=== PATIENT | female | born 1955 | race Caucasian/White ===

== ENCOUNTER 2018-01-01 09:47 | Outpatient (REF) | payer MEDICAID, SELFPAY ==
[2018-01-01 12:53] LABS: HGB 14.4 g/dL (12.0-15.5); Mean Corp. HGB Concentration 34.3 g/dL (32.0-36.0); Mean Corpuscular Volume 96.1 fL (80-95); Mean Platelet Volume 10.4 fL (8.0-11.0); Platelet Count 285 x1000/uL (130-400); RBC 4.37 m/cumm (4.00-5.20); RBC Distribution Width 12.2 % (11.7-14.6); White Blood Cell Count 8.18 k/cumm (4.4-10.8)
[2018-01-01 13:01] LABS: ALT 17 U/L (12-78); AST 16 U/L (15-37); Alkaline Phosphatase 127 U/L (46-116); Anion Gap 6.9 mmol/L (3-11); BUN 24 mg/dL (7-18); Bilirubin, Total 0.5 mg/dL (0.2-1.0); CO2 28.1 mmol/L (21.0-32.0); CREATININE 0.94 mg/dL (0.55-1.02); Calcium 8.8 mg/dL (8.5-10.1); Chloride 106 mmol/L (98-107); Cholesterol 207 mg/dL (50-200); Glucose 86 mg/dL (70-100); HDL Cholesterol 60 mg/dL (40-60); LDL CHOLESTEROL 136 mg/dL (<100); Potassium 4.5 mmol/L (3.5-5.1); Sodium 141 mmol/L (136-145); Triglyceride 87 mg/dL (30-150)
[2018-01-03 06:45] LABS: Vitamin D 25 Total 48.2 ng/ml (30-100)
== END 2018-01-01 10:07 ==
LOC: NCHCN 09:47
PROVIDERS: PCP Nurse Practitioner Family; Visit Provider Nurse Practitioner Family
DX: Z13.0 Encounter for screening for diseases of the blood and blood-forming organs and certain disorders involving the immune mechanism (principal); Z13.228 Encounter for screening for other metabolic disorders; Z13.220 Encounter for screening for lipoid disorders; E55.9 Vitamin D deficiency, unspecified
CPT/HCPCS: 80053; 80061; 82306; 83721; 85027

== ENCOUNTER 2018-01-07 10:50 | Outpatient (REF) | payer MEDICAID, SELFPAY ==
[2018-01-07 13:50] LABS: Vitamin D 25 Total 50.1 ng/ml (30-100)
== END 2018-01-07 11:10 ==
LOC: NCHCN 10:50
PROVIDERS: PCP Nurse Practitioner Family; Visit Provider Nurse Practitioner Family
DX: E55.9 Vitamin D deficiency, unspecified (principal)
CPT/HCPCS: 82306

== ENCOUNTER 2018-02-04 10:22 | Outpatient (CLI) | payer MEDICAID, SELFPAY ==
--- NOTE | 2018-02-04 10:10 | DI.COMBO_ITS ---
SYMPTOM/DIAGNOSIS: BILATERAL KNEE PAIN RIGHT KNEE: Three views. No priors The joint spaces are well maintained. The bones are intact and normally mineralized. There is an enthesophyte seen at the superior aspect of the patella. The soft tissues are unremarkable. IMPRESSION: Small enthesophyte at the superior aspect of the patella. No other bone or joint abnormality. LEFT KNEE: Three Views. No priors. There is a small enthesophyte at the superior aspect of the patella. The joint spaces are well maintained. The articular surfaces are smooth. The bones are intact and normally mineralized. The soft tissues are unremarkable. IMPRESSION: Small enthesophyte at the superior aspect of the patella. Otherwise , negative examination.
--- NOTE | 2018-02-04 10:55 | DI.RAD_ITS ---
SYMPTOM/DIAGNOSIS: BACK PAIN THORACOLUMBAR JUNCTION: Frontal and lateral views centered at the thoracolumbar junction were performed. Mild to moderate degenerative changes are seen in the visualized thoracic and lumbar spine. No acute fractures or subluxations are seen. Surgical clips are seen in the right upper quadrant of the abdomen suggesting prior cholecystectomy. The bones appear normally mineralized. IMPRESSION: Mild to moderate degenerative changes seen in the visualized portions of the thoracic and lumbar spine.
== END 2018-02-04 10:42 ==
PROVIDERS: PCP Nurse Practitioner Family; Visit Provider Physician Assistant
DX: M25.561 Pain in right knee (principal); M25.562 Pain in left knee; M76.891 Other specified enthesopathies of right lower limb, excluding foot; M76.892 Other specified enthesopathies of left lower limb, excluding foot; M54.5 Low back pain; M54.6 Pain in thoracic spine; M47.815 Spondylosis without myelopathy or radiculopathy, thoracolumbar region
CPT/HCPCS: 73562; 72080

== ENCOUNTER 2018-03-01 06:38 | Day surgery (SDC) | payer MEDICAID, SELFPAY ==
--- NOTE | 2018-02-28 07:34 | W.PIPPEYE ---
History of Present Illness Chief Complaint: Progressive decreased vision, right eye Narrative: Patient is a 62-year old female who presented with complaints of progressive decreased vision in both eyes at both distance and near. She also has significant difficulty with glare. She has a history of CVA with right-sided visual field defects. On examination she was noted to have moderate nuclear cataracts with posterior subcapsular cataract of the right eye with visual acuity of 20/400. The option of cataract surgery was offered to the patient and she wished to proceed, understanding that postoperative visual acuity may be limited by the presence of her pre-existing visual field deficit. NOTE: The Chief Complaint, HPI, Past Medical History, Past Surgical History, Family History, Social History, Medications, and complete Ophthalmic Exam with detailed Assessment and Plan have already been documented in the patient's outpatient ophthalmic record and are not covered again in detail here. 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) (Acute) Nuclear sclerotic cataract of right eye (Acute) Posterior subcapsular age-related cataract, right eye (Acute) Social History Smoking/Tobacco Use Status: Current-Occasional Meds Home Medications Medication Instructions Recorded Confirmed Type carbidopa-levodopa [Sinemet] 1 tab PO HS 02/04/14 02/25/18 History cholecalciferol (vitamin D3) 1 tab PO DAILY 02/04/14 02/25/18 History [Vitamin D3] pantoprazole 40 mg PO DAILY 04/28/16 02/25/18 History celecoxib 100 mg capsule 100 mg PO BID #60 cap 02/04/18 02/26/18 Rx Allergies Allergy/AdvReac Type Severity Reaction Status Date / Time No Known Allergies Allergy Unverified 02/04/18 09:45 Exam OCULAR EXAM:: Visual acuity at distance: 20/400 Pupils: Pupils equal, round, and reactive without afferent pupillary defect IOP: 15 OU Extraocular Motility: Normal Pertinent Slit Lamp Findings: Significant for pupils dilating to 6 mm OU. 1-2+ nuclear cataract OU. 1+ posterior subcapsular cataract OD. Dilated Funduscopic Examination: Disc cupping is 0.35 OU with good color. The optic nerves have good perfusion and normal color. The retinal vasculature is normal without significant tortuosity or abnormality. The maculas are normal in appearance with normal contour and foveal reflex appropriate for age. The peripheral retina and vitreous are normal. BRIGHTNESS ACUITY TESTING (BAT):: Off right eye 20/400 Low: 20/400 Medium: 20/200 High: 20/200 Assessment and Plan (1) Posterior subcapsular age-related cataract, right eye: Current visit: No Status: Acute Assessment: Visually significant cataract, right eye. Plan: Cataract extraction with intraocular lens implantation, right eye (2) Nuclear sclerotic cataract of right eye: Current visit: No Status: Acute Assessment: Visually significant cataract, right eye. 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 Patient reports right side of visual field affected. Had visual field exam many years ago in [place]. We have no access to those reports. Plan: Consideration was given to performing visual field prior to surgery. However, quality of visual field will be impacted by her cataract in the right eye and it will likely be unreliable. Recommend full threshold screening visual field following cataract surgery Note: NOTE:: The details of the planned surgery, including the risks, indications,limitations,expectations,outcome and possible complications were explained to the patient. The patient understands the complications including, but not limited to: infection, hemorrhage, posterior dislocation of the lens or nuclear fragments which may require the intervention of a vitreoretinal surgeon, possible loss of the eye, or from anesthetic complications. The patient has been made aware of the option of not having surgery, that vision following surgery may not be equal to that prior to surgery, and that the planned surgery may not achieve the intended results. Following this discussion, which the patient appeared to understand, the patient wishes to proceed with cataract surgery with lens implantation of the affected eye to improve and maximize vision.
[2018-03-01] MEDS: Tetracaine 0.5% 4 ML BTL OD ×4 (06:59→07:36)
[2018-03-01] MEDS: Tropicam./Phenyleph. (1/2.5%) 5 ML BTL OD ×3 (07:00→07:17)
[2018-03-01 07:04] VITALS: BP 117/70; PULSE 63; RESP 16; TEMP 36.6; O2SAT 99
--- NOTE | 2018-03-01 07:30 | W.PM.DSUDISC ---
Discharge Plan Discharge Details Reason For Visit: CATARACT OD Attending Provider: Petar Barahona Primary Care Provider: Safia Molina Home Meds and New Rx's Prescriptions: No Action celecoxib [Celebrex] 100 mg capsule 100 mg PO BID Qty: 60 RF: 2 carbidopa-levodopa [Sinemet] 1 EACH tablet 1 tab PO HS RF: 0 cholecalciferol (vitamin D3) [Vitamin D3] 1,000 UNIT capsule 1 tab PO DAILY RF: 0 pantoprazole 40 MG tablet,delayed release (DR/EC) 40 mg PO DAILY RF: 0 Discharge Instructions Stand Alone Forms: Post-op Topical Anusha Jackson (DSU) DS: Diagnosis Discharge Diagnosis (1) Posterior subcapsular age-related cataract, right eye: Status: Resolved (2) Nuclear sclerotic cataract of right eye: Status: Resolved (3) 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
[2018-03-01] MEDS: Lidocaine 2% Jelly 6 ML SYR (07:36)
[2018-03-01] MEDS: Lidocaine 1% Pres-Free 5 ML VIAL (07:41)
[2018-03-01] MEDS: Balanced Salt Soln.-PLUS 500 ML BAG (07:41)
[2018-03-01] MEDS: Povidone-Iodine Ophth 30 ML BTL (07:48)
[2018-03-01 08:30] VITALS: BP 110/72; PULSE 57; RESP 14; TEMP 37; O2SAT 96
--- NOTE | 2018-03-01 09:39 | W.PM.OP ---
Date of service: 03/01/18 Time of Service: 09:39 Operative Note DATE OF PROCEDURE: 03/01/18 PRE-OP DIAGNOSIS: Cataract, right eye POST-OP DIAGNOSIS: same SURGEON: Petar Barahona ANESTHESIA: MAC and local (sub-tenon's anesthetic infiltration) PATHOLOGY: none sent COMPLICATIONS: None Patient was transported to: same day Patient's condition: stable Implants: [employer] A[employer] Vision / [employer] Tecnis ZCB00 Indications: Progressive decreased vision due to cataract, right eye Procedure Description: CATARACT SURGERY OPERATIVE REPORT PREOPERATIVE DIAGNOSIS: Nuclear/posterior subcapsular cataract, right eye POSTOPERATIVE DIAGNOSIS: Same OPERATION: Cataract extraction using phacoemulsification with posterior chamber intraocular lens implant, right eye. IOL: IOL Spine Surgeon/Model: [employer] Vision / OMKAR Tecnis ZCB00 IOL Power: + 22.0 diopters IOL Serial Number: [id number] Optic Diameter: 6.0mm Haptic/Overall Diameter: 13.0mm PHACO INFO: [employer] Vision System with OZil and Active Fluidics Cumulative Dispersed Energy (CDE): 7.94 seconds SURGEON: Petar Barahona MD, JOSE ANGEL ANESTHESIA: Monitored Anesthesia Care (MAC), with local sub-tenon's anesthetic infiltration COMPLICATIONS: None SPECIMENS: None INDICATIONS FOR PROCEDURE: Patient is a 62-year-old female with history of progressive decreased vision in her right eye. She was noted to have a significant nuclear and posterior subcapsular cataract with visual acuity of 20/400. The option of cataract surgery was offered to the patient and she felt she was symptomatic enough that she wished to proceed. PROCEDURE: The correct surgical eye was identified and marked as the right eye and the pupil was dilated in the preoperative area using mydriatics and cycloplegics. The dilated pupil size was 7.0 mm. Oral sedation was administered in the form of an Imprimis MKO Melt (midazolam 3mg/ketamine 25mg/ondansetron 2mg). The patient was brought to the operating room where cardiopulmonary monitoring was instituted and surgical time-out was performed, confirming the correct operative eye and IOL power. Topical anesthesia was administered and ophthalmic povidone-iodine 5% was instilled into the conjunctival fornices. Lidocaine gel was applied to the cornea and the ruby-ocular area was prepped with Betadine 10% solution and draped in the usual sterile fashion for intraocular surgery. Steri-strips were used to cover the lashes and lid margins and an adhesive eye drape was placed. Care was taken to isolate the lashes and lid margins under the Steri-strips and adhesive eye drape. A lid speculum was placed between the lids of the operative eye and the Jamar-Heath operating microscope was maneuvered into position. Sis scissors were then used to make a conjunctival buttonhole approximately 6mm posterior to the limbus in the inferonasal quadrant. Blunt dissection was carried out to expose bare sclera, and a blunt-tipped sub-tenon?s anesthesia cannula was introduced and passed posteriorly along the globe where non-preserved plain lidocaine was injected into posterior sub-Tenon?s space. A sideport knife was used to make a paracentesis port at the 7:00 postion and the anterior chamber was filled with Healon GV. A 2.4mm keratome knife was used to create a half-thickness groove at the limbus and then to construct a three-plane near-clear corneal tunnel extending 2.0mm into clear cornea at the 10:00 position. A flap was raised on the anterior capsule and capsulorhexis forceps were used to complete a continuous curvilinear capsulorhexis of 5.0 mm. Balanced salt solution was then used to perform cortical cleaving hydrodissection and nuclear hydrodelineation until the lens could be freely rotated within the capsular bag. The lens nucleus was then disassembled and removed within the capsular bag and iris plane using phacoemulsification. Residual cortical material was removed using the 45-degree angled silicone I/A tip with 0.3mm port. The posterior capsule was carefully polished to remove as much residual lens epithelial cells as safely possible. The capsular bag was then inflated and the anterior chamber deepened with viscoelastic. The lens implant described above was inserted into the capsular bag using the OMKAR [place] Injector. A Kuglen hook was used to dial the IOL into position. Residual viscoelastic was then removed first from posterior to the IOL, then from the anterior chamber using the I/A handpiece. The lens implant was noted to center nicely within the capsular bag. The incisions were stromally hydrated, and the anterior chamber was reformed using BSS. Then 0.4cc of moxifloxacin 1.5mg/ml were injected into the capsular bag and anterior chamber. The incisions were checked with a Weck spear and found to be secure. Several drops of ophthalmic povidone-iodine 5% were then applied to the eye followed by two drops of Imprimis combination moxifloxacin/dexamethasone solution. The drapes were removed and a clear plastic protective eye shield was placed over the eye. The patient was then returned to Same Day Surgery in stable condition.
== END 2018-03-01 08:50 | disposition home or self-care (01) ==
PROVIDERS: PCP Nurse Practitioner Family; Visit Provider Ophthalmology
PROC: (CPT 66984; principal; 2018-03-01 07:30)
DX: H25.811 Combined forms of age-related cataract, right eye (principal); J44.9 Chronic obstructive pulmonary disease, unspecified; K21.9 Gastro-esophageal reflux disease without esophagitis; F17.210 Nicotine dependence, cigarettes, uncomplicated
CPT/HCPCS: 66984; V2632

== ENCOUNTER 2018-03-15 07:53 | Day surgery (SDC) | payer MEDICAID, SELFPAY ==
--- NOTE | 2018-03-14 12:47 | W.PIPPEYE ---
History of Present Illness Chief Complaint: Progressive decreased vision, left eye Narrative: The patient is a 62-year old female with history of progressive decreased vision in both eyes at both distance and near. On examination she was noted to have moderate bilateral nuclear cataracts with posterior subcapsular cataract of the right eye as well. She was significantly symptomatic that she desired cataract surgery which was performed OD on 03/01/2018. She has regained uncorrected vision of 20/20 in the right eye. She now presents for cataract surgery of the left eye NOTE: The Chief Complaint, HPI, Past Medical History, Past Surgical History, Family History, Social History, Medications, and complete Ophthalmic Exam with detailed Assessment and Plan have already been documented in the patient's outpatient ophthalmic record and are not covered again in detail here. 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) (Chronic) Nuclear sclerotic cataract of right eye (Resolved) Posterior subcapsular age-related cataract, right eye (Resolved) Status post cataract extraction and insertion of intraocular lens of right eye (Chronic 03/01/18) Social History Smoking/Tobacco Use Status: Current-Occasional Meds Home Medications Medication Instructions Recorded Confirmed Type carbidopa-levodopa [Sinemet] 1 tab PO HS 02/04/14 03/01/18 History cholecalciferol (vitamin D3) 1 tab PO DAILY 02/04/14 02/25/18 History [Vitamin D3] pantoprazole 40 mg PO DAILY 04/28/16 03/01/18 History celecoxib 100 mg capsule 100 mg PO BID #60 cap 02/04/18 03/01/18 Rx Allergies Allergy/AdvReac Type Severity Reaction Status Date / Time No Known Allergies Allergy Unverified 03/01/18 06:52 Exam OCULAR EXAM:: Most recent ocular examination is significant for uncorrected visual acuity of 20/20 in the right eye, 20/40 in the left eye. Intraocular pressure is 15 OD, 15 OS. Pupils equal, round, and reactive without afferent pupillary defect, extraocular motility is normal. Slit-lamp examination is significant for pupils dilating to 6 mm OU. A 1-2+ nuclear cataract is present OS. A well-positioned PCIOL is present OD with clear posterior capsule. Funduscopic examination is significant for disc cupping of 0.35 OU with normal vessels, macula, peripheral retina and vitreous. BRIGHTNESS ACUITY TESTING (BAT):: Brightness acuity testing of the left eye, off is 20/40. Low is 20/25, medium is 20/25, high is 20/30. Assessment and Plan (1) Nuclear sclerotic cataract of left eye: Current visit: No Status: Acute Assessment: Visually significant cataract, left eye. Plan: Cataract extraction with intraocular lens implantation, left eye Note: NOTE:: The details of the planned surgery, including the risks, indications,limitations,expectations,outcome and possible complications were explained to the patient. The patient understands the complications including, but not limited to: infection, hemorrhage, posterior dislocation of the lens or nuclear fragments which may require the intervention of a vitreoretinal surgeon, possible loss of the eye, or from anesthetic complications. The patient has been made aware of the option of not having surgery, that vision following surgery may not be equal to that prior to surgery, and that the planned surgery may not achieve the intended results. Following this discussion, which the patient appeared to understand, the patient wishes to proceed with cataract surgery with lens implantation of the affected eye to improve and maximize vision.
[2018-03-15 08:07] VITALS: BP 129/72; PULSE 78; RESP 18; TEMP 37.1; O2SAT 96
[2018-03-15] MEDS: Tetracaine 0.5% 4 ML BTL OS ×4 (08:16→09:06)
[2018-03-15] MEDS: Tropicam./Phenyleph. (1/2.5%) 5 ML BTL OS ×3 (08:16→08:21)
[2018-03-15] MEDS: Povidone-Iodine Ophth 30 ML BTL (09:06)
[2018-03-15] MEDS: Lidocaine 2% Jelly 6 ML SYR (09:06)
[2018-03-15] MEDS: Lidocaine 1% Pres-Free 5 ML VIAL (09:10)
[2018-03-15] MEDS: Balanced Salt Soln.-PLUS 500 ML BAG (09:12)
--- NOTE | 2018-03-15 09:32 | W.PM.DSUDISC ---
Discharge Plan Discharge Details Reason For Visit: CATARACT OS Attending Provider: Petar Barahona Primary Care Provider: Safia Molina Home Meds and New Rx's Prescriptions: No Action celecoxib [Celebrex] 100 mg capsule 100 mg PO BID Qty: 60 RF: 2 carbidopa-levodopa [Sinemet] 1 EACH tablet 1 tab PO HS RF: 0 cholecalciferol (vitamin D3) [Vitamin D3] 1,000 UNIT capsule 1 tab PO DAILY RF: 0 pantoprazole 40 MG tablet,delayed release (DR/EC) 40 mg PO DAILY RF: 0 Discharge Instructions Stand Alone Forms: Post-op Topical Cataract, Anusha Hale (DSU) DS: Diagnosis Discharge Diagnosis (1) Status post cataract extraction and insertion of intraocular lens of left eye: Status: Chronic
--- NOTE | 2018-03-15 09:33 | W.PM.OP ---
Date of service: 03/15/18 Time of Service: 09:33 Operative Note DATE OF PROCEDURE: 03/15/18 PRE-OP DIAGNOSIS: Cataract, left eye POST-OP DIAGNOSIS: same PROCEDURE: Cataract extraction using phacoemulsification with intraocular lens implant, left eye SURGEON: Petar Barahona ANESTHESIA: MAC and local (sub-tenon's anesthetic infiltration) PATHOLOGY: none sent COMPLICATIONS: None Patient was transported to: same day Patient's condition: stable Implants: [employer] Vision / [employer] Tecnis ZCB00 Indications: Progressive decreased vision due to cataract, left eye Procedure Description: CATARACT SURGERY OPERATIVE REPORT PREOPERATIVE DIAGNOSIS: Nuclear cataract, left eye POSTOPERATIVE DIAGNOSIS: Same OPERATION: Cataract extraction using phacoemulsification with posterior chamber intraocular lens implant, left eye. IOL: IOL Research Hydraulic Engineer/Model: J&J Vision / OMKAR Tecnis ZCB00 IOL Power: + 21.50 diopters IOL Serial Number: [id number] Optic Diameter: 6.0mm Haptic/Overall Diameter: 13.0mm PHACO INFO: [employer] Vision System with OZil and Active Fluidics Cumulative Dispersed Energy (CDE): 7.09 seconds SURGEON: Petar Barahona MD, JOSE ANGEL ANESTHESIA: Monitored Anesthesia Care (MAC), with local sub-tenon's anesthetic infiltration COMPLICATIONS: None SPECIMENS: None INDICATIONS FOR PROCEDURE: The patient is a 62-year old lady with history of bilateral nuclear cataracts that have become increasingly symptomatic. She desired cataract surgery, which was performed OD on 03/01/2018. She is doing well postoperatively in her right eye with uncorrected vision of 20/20. She now presents for cataract surgery of the left eye. PROCEDURE: The correct surgical eye was identified and marked as the left eye and the pupil was dilated in the preoperative area using mydriatics and cycloplegics. The dilated pupil size was 6.5 mm. Oral sedation was administered in the form of an Imprimis MKO Melt (midazolam 3mg/ketamine 25mg/ondansetron 2mg). The patient was brought to the operating room where cardiopulmonary monitoring was instituted and surgical time-out was performed, confirming the correct operative eye and IOL power. Topical anesthesia was administered and ophthalmic povidone-iodine 5% was instilled into the conjunctival fornices. Lidocaine gel was applied to the cornea and the ruby-ocular area was prepped with Betadine 10% solution and draped in the usual sterile fashion for intraocular surgery, including an aperture drape. A Tegaderm transparent film dressing was cut in half and used to cover the lashes and lid margins. Care was taken to sequester the lashes and lid margins under the Tegaderm dressing. A lid speculum was placed between the lids of the operative eye and the Jamar-Heath operating microscope was maneuvered into position. Sis scissors were then used to make a conjunctival buttonhole approximately 6mm posterior to the limbus in the inferonasal quadrant. Blunt dissection was carried out to expose bare sclera, and a blunt-tipped sub-tenon?s anesthesia cannula was introduced and passed posteriorly along the globe where non-preserved plain lidocaine was injected into posterior sub-Tenon?s space. A sideport knife was used to make a paracentesis port superior/superiortemporal, and the anterior chamber was filled with Healon GV. A 2.4mm keratome knife was used to create a half-thickness groove at the limbus and then to construct a three-plane near-clear corneal tunnel extending 2.0mm into clear cornea in the temporal position. . A flap was raised on the anterior capsule and capsulorhexis forceps were used to complete a continuous curvilinear capsulorhexis of 4.5 mm, slightly decentered inferiorly. Balanced salt solution was then used to perform cortical cleaving hydrodissection and nuclear hydrodelineation until the lens could be freely rotated within the capsular bag. The lens nucleus was then disassembled and removed within the capsular bag and iris plane using phacoemulsification. Residual cortical material was removed using the 45-degree angled silicone I/A tip with 0.3mm port. The posterior capsule was carefully polished to remove as much residual lens epithelial cells as safely possible. The capsular bag was then inflated and the anterior chamber deepened with viscoelastic. The lens implant described above was inserted into the capsular bag using the OMKAR [place] Injector. A Kuglen hook was used to dial the IOL into position. Residual viscoelastic was then removed first from posterior to the IOL, then from the anterior chamber using the I/A handpiece. The lens implant was noted to center nicely within the capsular bag. The incisions were stromally hydrated, and the anterior chamber was reformed using BSS. Then 0.4cc of moxifloxacin 1.5mg/ml were injected into the capsular bag and anterior chamber. The incisions were checked with a Weck spear and found to be secure. Several drops of ophthalmic povidone-iodine 5% were then applied to the eye followed by two drops of Imprimis combination moxifloxacin/dexamethasone solution. The drapes were removed and a clear plastic protective eye shield was placed over the eye. The patient was then returned to Same Day Surgery in stable condition.
[2018-03-15 09:50] VITALS: BP 108/73; PULSE 68; RESP 16; TEMP 36.6; O2SAT 97
== END 2018-03-15 10:00 | disposition home or self-care (01) ==
LOC: SUR 07:54
PROVIDERS: PCP Nurse Practitioner Family; Visit Provider Ophthalmology
PROC: (CPT 66984; principal; 2018-03-15 09:00)
DX: H25.12 Age-related nuclear cataract, left eye (principal); Z98.41 Cataract extraction status, right eye; Z96.1 Presence of intraocular lens; J44.9 Chronic obstructive pulmonary disease, unspecified; K21.9 Gastro-esophageal reflux disease without esophagitis; F17.210 Nicotine dependence, cigarettes, uncomplicated
CPT/HCPCS: 66984; V2632

== ENCOUNTER 2018-10-07 14:12 | Outpatient (REF) | payer MEDICAID, SELFPAY ==
[2018-10-07 20:12] LABS: Abs Immature Grans 0.01 k/cumm (0.0-0.09); Absolute Basophil Count 0.02 k/cumm (0.0-0.2); Absolute Eosinophil Count 0.08 k/cumm (0.0-0.7); Absolute Lymphocyte Count 2.25 k/cumm (1.2-3.4); Absolute Monocyte Count 0.54 k/cumm (0.11-0.7); Absolute Neutrophil Count 4.06 k/cumm (1.2-6.7); Basophils % 0.3; Eosinophils % 1.1; HCT 39.6 % (36.0-46.0); HGB 13.4 g/dL (12.0-15.5); Immature Grans % 0.1; Lymphocytes % 32.3; Mean Corp. HGB Concentration 33.8 g/dL (32.0-36.0); Mean Corpuscular Hemoglobin 32.6 pg (27.0-33.0); Mean Corpuscular Volume 96.4 fL (80-95); Mean Platelet Volume 10.8 fL (8.0-11.0); Monocytes % 7.8; Neutrophils % 58.4; Platelet Count 309 x1000/uL (130-400); RBC 4.11 m/cumm (4.00-5.20); RBC Distribution Width 12.1 % (11.7-14.6); White Blood Cell Count 6.96 k/cumm (4.4-10.8)
[2018-10-07 20:13] LABS: Bilirubin Negative (Negative); Blood Small (Negative); Clarity Clear (Clear); Glucose Negative (Negative); Ketones Negative (Negative); Leukocyte Esterase Negative (Negative); Nitrite Negative (Negative); Specific Gravity 1.025 (1.005-1.025); Urobilinogen 0.2 EU/dL (Up TO 0.2); pH 5.5 (5-8)
[2018-10-07 20:22] LABS: ALT 20 U/L (12-78); AST 16 U/L (15-37); Albumin 4.1 g/dL (3.4-5.0); Alkaline Phosphatase 113 U/L (46-116); Anion Gap 9.9 mmol/L (3-11); BUN 17 mg/dL (7-18); Bilirubin, Total 0.5 mg/dL (0.2-1.0); CO2 27.1 mmol/L (21.0-32.0); CREATININE 0.92 mg/dL (0.55-1.02); Calcium 9.1 mg/dL (8.5-10.1); Chloride 105 mmol/L (98-107); Glucose 77 mg/dL (70-100); Sodium 142 mmol/L (136-145); TSH (W/Ref FT4) 1.58 uIU/mL (0.358-3.74); Total Protein 6.9 g/dL (6.4-8.2)
[2018-10-07 21:41] LABS: Bacteria Negative HPF (Negative); C & S Indicated? No; Casts Negative LPF (Negative); Crystals Negative HPF (Negative); Epithelial Cells Negative HPF (Negative); Mucus Negative (Negative); Other Cells Negative (Negative); RBC Negative (0-2); WBC Negative HPF (0-5)
== END 2018-10-07 14:32 ==
LOC: NCHCN 14:12
PROVIDERS: PCP Nurse Practitioner Family; Visit Provider Nurse Practitioner Family
DX: F41.8 Other specified anxiety disorders (principal); R63.4 Abnormal weight loss; R51 Headache
CPT/HCPCS: 80053; 81003; 81015; 84443; 85025

== ENCOUNTER 2018-10-17 00:30 | Outpatient (CLI) | payer MEDICAID, SELFPAY ==
--- NOTE | 2018-10-17 11:50 | DI.MAMMO_ITS ---
SYMPTOM/DIAGNOSIS: SCREENING, Z12.39 MAMMOGRAMS: Mammograms were interpreted according to the usual protocol including computer analysis with CAD system, tomosynthesis and C view imaging. The breast tissue is heterogeneous radiodense which lowers the sensitivity of the study. There is a question regarding interval development of a small area of subareolar nodularity in the left breast. There are no suspicious calcifications. SUMMARY: Question interval development of a left breast nodule. Further assessment with a craniocaudad compression spot film and ultrasound is recommended. Category 0. Breast density, Category C. MQSA ASSESSMENT OF FINDINGS: Incomplete: Needs additional imaging evaluation. Category 0. Patient will receive a letter notifying them of these results. Bi-RADS category C. The breasts are heterogeneously dense, which may obscure small masses.
== END 2018-10-17 00:50 ==
PROVIDERS: PCP Nurse Practitioner Family; Visit Provider Nurse Practitioner Family
DX: Z12.31 Encounter for screening mammogram for malignant neoplasm of breast (principal); R92.8 Other abnormal and inconclusive findings on diagnostic imaging of breast
CPT/HCPCS: 77063; 77067

== ENCOUNTER 2018-10-22 00:36 | Outpatient (CLI) | payer MEDICAID, SELFPAY ==
--- NOTE | 2018-10-22 10:00 | DI.COMBO_ITS ---
SYMPTOM/DIAGNOSIS: F/U ABNL MAMMO SUBAREOLAR NODULARITY ADDITIONAL VIEWS LEFT BREAST AND LEFT BREAST ULTRASOUND: Additional images are interpreted according to the usual protocol including tomosynthesis and 2D imaging. Additional views of the left breast again show an area of architectural detorsion consistent with the patient's prior breast biopsy. No persistent mass or suspicious microcalcifications are seen. The skin and axilla are unremarkable. Breast density category C. A left breast ultrasound was performed in the area of concern. An avascular area of architectural detorsion is seen in the subareolar region of the left breast consistent with the patient's area of biopsy. No suspicious cystic or solid masses are seen sonographically. IMPRESSION: No definite evidence for malignancy. A 6-month follow up left mammogram is requested for re-evaluation. Category 3. Breast density C. The findings were discussed with the patient on the date of the examination. MQSA ASSESSMENT OF FINDINGS: Probably benign. Six month follow-up recommended. Category 3. Patient will receive a letter notifying them of these results. Bi-RADS category C. The breasts are heterogeneously dense, which may obscure small masses.
== END 2018-10-22 00:56 ==
PROVIDERS: PCP Nurse Practitioner Family; Visit Provider Nurse Practitioner Family
DX: Z12.31 Encounter for screening mammogram for malignant neoplasm of breast (principal); R92.8 Other abnormal and inconclusive findings on diagnostic imaging of breast; N64.59 Other signs and symptoms in breast
CPT/HCPCS: 76642; 77061; 77065; G0279

== ENCOUNTER 2018-10-23 00:40 | Outpatient (CLI) | payer MEDICAID, SELFPAY ==
--- NOTE | 2018-10-23 13:15 | DI.CT_ITS ---
SYMPTOM/DIAGNOSIS: COUGH, R05, UNEXPLAINED WEIGHT LOSS, R63.4 CT CHEST: CT scan of the chest was performed following the uneventful administration of intravenous contrast material. There are no priors for comparison. There are a few tiny hypodense lesions seen within the thyroid gland. Non- emergent thyroid ultrasound may be obtained for further evaluation. The thoracic aorta is of normal caliber and intact. Mild atherosclerosis is present. Heart size is within normal limits. No significant pericardial effusion is seen. Coronary artery calcifications are present. Mildly enlarged lymph nodes are seen in the mediastinum. The largest lymph node has a short axis diameter of 0.7 cm. No significant thoracic adenopathy is seen. No pleural effusion or pneumothorax is identified. Upper abdominal images were obtained. The patient is status post cholecystectomy. There is a cyst seen in the mid-pole of the left kidney. Mild central lobular lucencies are seen in the lungs, predominantly in the apices suggestive of pulmonary emphysema. There is scarring in the lung apices, left greater than right. There is a 0.4 cm triangular noncalcified density associated with the right minor fissure most suggestive of an intrapulmonary lymph node. No suspicious pulmonary nodules are seen. No infiltrates are seen. The tracheobronchial tree is unremarkable. There are degenerative changes seen in the spine. IMPRESSION: 1. No evidence of thoracic mass or metastatic disease. 2. Mild central lobular emphysematous changes.
[2018-10-23] MEDS: Omnipaque 350 MG/ML 100 ML BTL IJ (13:18)
[2018-10-23] MEDS: Normal Saline Flush 10 ML SYR IVP (13:19)
== END 2018-10-23 01:00 ==
PROVIDERS: PCP Nurse Practitioner Family; Visit Provider Nurse Practitioner Family
DX: R05 Cough (principal); R63.4 Abnormal weight loss; J43.9 Emphysema, unspecified; E07.89 Other specified disorders of thyroid; R59.0 Localized enlarged lymph nodes; R91.8 Other nonspecific abnormal finding of lung field
CPT/HCPCS: 71260; J3490

== ENCOUNTER 2018-11-18 01:19 | Outpatient (CLI) | payer MEDICAID, SELFPAY ==
--- NOTE | 2018-11-18 11:35 | DI.MRI_ITS ---
SYMPTOM/DIAGNOSIS: NEW ONSET HEADACHE, HX STROKE R51 BRAIN MRI: 11/08 MR examination of the brain was performed according to the usual protocol. There is mild generalized cerebral atrophy. There is an apparent lacunar infarct in the thalamus on the left. Tiny right basal ganglia infarct also appears to be present. Minimal signal abnormality noted in periventricular white matter consistent with microvascular ischemic changes. No other significant signal abnormality identified in the brain. The orbital and temporal bone structures appear intact. Pituitary appears intact. There is normal flow void in the [place] vasculature. Diffusion weighted images show no evidence of infarction. Susceptibility weighted images show no evidence of hemorrhage. CONCLUSION: Small bilateral lacunar infarcts. No other significant findings.
== END 2018-11-18 01:39 ==
PROVIDERS: PCP Nurse Practitioner Family; Visit Provider Nurse Practitioner Adult Health
DX: R51 Headache (principal); G31.89 Other specified degenerative diseases of nervous system; I63.89 Other cerebral infarction
CPT/HCPCS: 70551

== ENCOUNTER 2018-11-19 15:12 | Outpatient (REF) | payer MEDICAID, SELFPAY ==
--- NOTE | 2018-11-19 14:00 | PAPFT_PTH ---
PATIENT: Khalida Ellis LOC: [facility] U#:[id number] AGE/SX: 63/F ROOM: RE11/19/[address]: Ricki Lopez : 1955 BED: DIS: 11/19/2018 SPEC #: [id number] RECD: 11/19/18 17:52 STATUS: NOEL REQ #: [id number] HARRY: 11/19/18 14:[address]: Ricki Lopez DEPT: [facility] Cytology RECD BY: Lisa Monsivais Tissues: 1 - CX/ENDOCX FOR PAP SMEARS Procedures: PAP THIN PREP/[facility] Screening Comments: [id number] (UNSATISFACTORY FOR EVALUATION)
== END 2018-11-19 15:32 ==
LOC: NCHCN 15:12
PROVIDERS: PCP Nurse Practitioner Family; Visit Provider Nurse Practitioner Family
DX: Z12.4 Encounter for screening for malignant neoplasm of cervix (principal); Z11.51 Encounter for screening for human papillomavirus (HPV); Z00.00 Encounter for general adult medical examination without abnormal findings
CPT/HCPCS: 88142; 87624

== ENCOUNTER 2019-02-07 04:37 | Outpatient (CLI) | payer MEDICAID, SELFPAY ==
--- NOTE | 2019-02-07 12:34 | DI.US_ITS ---
EXAM: US THYROID CLINICAL HISTORY: THYROID NODULE E04.1 TECHNIQUE: Ultrasound performed using standard protocol. COMPARISON: No exams were available for comparison FINDINGS: The right lobe of the thyroid measures 4.4 x 1.8 x 1.6 cm. The left lobe measures 3.6 x 1.5 x 1.6 cm . The overall thyroid echotexture is normal. There are a few scattered small colloid cysts bilatera lly. There are no suspicious nodules. Isthmus measures 2 millimeters in thickness. IMPRESSION: Small colloid cysts. No suspicious mass.
== END 2019-02-07 04:57 ==
PROVIDERS: PCP Nurse Practitioner Family; Visit Provider Nurse Practitioner Family
DX: E04.1 Nontoxic single thyroid nodule (principal)
CPT/HCPCS: 76536

== ENCOUNTER 2019-04-25 00:34 | Outpatient (CLI) | payer MEDICAID, SELFPAY ==
--- NOTE | 2019-04-25 13:35 | DI.MAMMO_ITS ---
EXAM: MG MAMMO DIAGNOSTIC UNI CLINICAL HISTORY: ABNL MAMMO, 6-MO F/U, R92.8 TECHNIQUE: Mammograms were interpreted according to the usual protocol including computer analysis w ONEPLE CAD system, tomosynthesis and C-view imaging. COMPARISON: Prior study September 2018 FINDINGS: Unilateral left breast mammogram was obtained to follow a questionable area of asymmetric density see n on prior study September 2018. No mass or clumped microcalcification seen on today's examination. No c hange from the prior study. IMPRESSION: No specific evidence of malignancy at this time. I would suggest that routine screening examinations resume with a bilateral mammogram in 6 months. Category 3, breast density category C. BI-RADS Cat 3 - Annual - Resume Annual Screening Breast Density - Category C - Heterogeneously dense
== END 2019-04-25 00:54 ==
PROVIDERS: PCP Nurse Practitioner Family; Visit Provider Nurse Practitioner Family
DX: Z12.31 Encounter for screening mammogram for malignant neoplasm of breast (principal); R92.8 Other abnormal and inconclusive findings on diagnostic imaging of breast; N64.59 Other signs and symptoms in breast
CPT/HCPCS: 77061; 77065; G0279

== ENCOUNTER 2019-05-19 14:15 | Outpatient (REF) | payer MEDICAID, SELFPAY ==
[2019-05-19 19:32] LABS: Iron 109 ug/dL (50-170)
[2019-05-19 19:58] LABS: Folate 18.1 ng/mL (8.6-20.0); Vitamin B12 496 pg/mL (193-986)
[2019-05-19 22:45] LABS: Ferritin 127 ng/mL (8-252)
[2019-05-21 12:27] LABS: IgA 166 mg/dL (85-499); Tissue Transglutaminase IgA <1.2 U/mL (<4.0)
== END 2019-05-19 14:35 ==
LOC: NCHCN 14:15
PROVIDERS: PCP Nurse Practitioner Family; Visit Provider Nurse Practitioner Family
DX: R63.4 Abnormal weight loss (principal); R53.83 Other fatigue; G25.81 Restless legs syndrome
CPT/HCPCS: 82784; 83516; 82607; 82728; 82746; 83540; 87086

== ENCOUNTER 2019-05-30 04:12 | Outpatient (CLI) | payer MEDICAID, SELFPAY ==
--- NOTE | 2019-05-30 | DI.US_ITS ---
EXAM: US ABDOMEN CLINICAL HISTORY: UNEXPLAINED WEIGHT LOSS R63.4 TECHNIQUE: Ultrasound performed using standard protocol. COMPARISON: CT CHEST W from 10/23/2018 FINDINGS: The liver is normal in size and echogenicity. Patient is status post cholecystectomy. No biliary d ilatation is seen. A splenic calcification is incidentally noted. The spleen is normal in size. Th e kidneys, pancreas and aorta are unremarkable. IMPRESSION: Status post cholecystectomy. No acute abnormality. DATA REPOSITORY:
== END 2019-05-30 04:32 ==
PROVIDERS: PCP Nurse Practitioner Family; Visit Provider Nurse Practitioner Family
DX: R63.4 Abnormal weight loss (principal); Z90.49 Acquired absence of other specified parts of digestive tract
CPT/HCPCS: 76700

== ENCOUNTER 2019-10-27 01:06 | Outpatient (CLI) | payer MEDICAID, SELFPAY ==
--- NOTE | 2019-10-27 09:25 | DI.RAD_ITS ---
EXAM: XR HIP RT COMPLETE AP PELVIS INDICATION: RT HIP JOINT PAIN, M25.551. COMPARISON: CR Thoracolumbar from 02/04/2018 TECHNIQUE: 2D digital imaging was performed. FINDINGS: The hip joint spaces are well maintained. There is mild right acetabular spurring. There are degen erative changes of both SI joints, right greater than left. Degenerative changes are also seen in th e lower lumbar spine. IMPRESSION: Mild degenerative changes of right hip. DATA REPOSITORY: RADIATION DOSE DELIVERED:
== END 2019-10-27 01:26 ==
PROVIDERS: PCP Nurse Practitioner Family; Visit Provider Nurse Practitioner Family
DX: M16.11 Unilateral primary osteoarthritis, right hip (principal)
CPT/HCPCS: 73502

== ENCOUNTER 2020-02-17 00:33 | Outpatient (CLI) | payer MEDICAID, SELFPAY ==
--- NOTE | 2020-02-17 07:20 | DI.MRI_ITS ---
EXAM: MR LOWER EXTREMITY RT WO/W CLINICAL HISTORY: SOFT TISSUE MASS IN PERONEAL MUSCULATURE RLE,R22.41. TECHNIQUE: Multiplanar multisequence MRI Examination was performed. CONTRAST MATERIAL: IV Contrast: 11 mL of Dotarem contrast administered. COMPARISON: None. FINDINGS: A marker was placed over the peroneal muscle in the area of concern. BONES/JOINTS: No evidence of fracture. No evidence of bone lesion. There is normal marrow signal. No joint effusion identified. MUSCULOTENDINOUS STRUCTURES: There is normal signal in the musculature. No evidence of a cystic or s olid mass is seen in the peroneal muscle. The tendons are unremarkable. SOFT TISSUES: Unremarkable. No evidence of a cystic or solid soft tissue mass. Enhancement: Following contrast administration, no abnormal enhancing lesions are identified. IMPRESSION: No evidence of a cystic or solid mass or enhancing lesion is present. DATA REPOSITORY:
[2020-02-17] MEDS: Normal Saline Flush 10 ML SYR IVP (10:28)
[2020-02-17] MEDS: Gadoterate meglumine 20 ML VIAL 11 ML IVP (10:29)
== END 2020-02-17 00:53 ==
PROVIDERS: PCP Nurse Practitioner Family; Visit Provider Orthopaedic Surgery
DX: R22.41 Localized swelling, mass and lump, right lower limb (principal); Z01.818 Encounter for other preprocedural examination
CPT/HCPCS: 73720; 82565; 82575

== ENCOUNTER 2020-04-29 12:07 | Outpatient (REF) | payer MEDICAID, SELFPAY ==
--- NOTE | 2020-04-29 10:45 | PAPFT_PTH ---
PATIENT: Khalida Ellis LOC: [facility] U#:[id number] AGE/SX: 64/F ROOM: RE04/29/[address]: Ricki Lopez : 1955 BED: DIS: 04/29/2020 SPEC #: [id number] RECD: 04/30/20 12:52 STATUS: NOEL REJoan #: [id number] HARRY: 04/29/20 10:[address]: Ricki oLpez DEPT: [facility] Cytology RECD BY: Lisa Monsivais Tissues: 1 - CX/ENDOCX FOR PAP SMEARS Procedures: PAP THIN PREP/[facility]VM Screening HPV DNA PROBE Comments: [id number]
--- OUTSIDE RECORDS SUMMARY | 2020-04-29 12:17 | XMS_ITS ---
:1955 Author Care Team Providers Name Role Phone [facility] REC[facility]DS Primary Care Provider [phone] [facility] [employer] - C Primary Care Provider [phone] Allergies Code Code System Name Reaction Severity Status Onset NKDA ? Medications Name Status Start Date Stop Date ? ? carbidopa-levodopa Active ? Not available 10-100mg (1 tab daily) celecoxib 100 mg capsule Active ? Not raul ilable Take 1 capsule twice a day by oral route. cholecalciferol (vitamin D3) Active ? Not available 1000unit daily pantoprazole 40 mg tablet,delayed release Active ? Not available Take 1 tablet every day by oral route. sucralfate 1 gram tablet Completed ? 019 Take 4 tablets every day by oral route. Problems Name Status Onset Date Source ? Chronic Fatigue Syndrome Active 04/05/2018 ? Hypersomnia Active 04/05/2018 ? Obstructive Sleep Apnea Syndrome Active 04/05/2018 ? Restless Legs Active 04/05/2018 ? Migraine Active 04/05/2018 ? Completed Stroke Active 04/05/2018 ? Chronic Obstructive Lung Disease Active 04/05/2018 ? Sciatica Active 04/05/2018 ? Heart Murmur Active 04/05/2018 ? Dyspnea Active 04/05/2018 ? Snoring Active 04/05/2018 ? Chest Pain Active 04/05/2018 ? Procedures None recorded. Results Lab Results None recorded. Past Encounters 10/16/2019 Obstructive Sleep Apnea Syndrome Joi Gonzalez, DATA MANAGEMENT: [address] [place] [phone], Ph. Social History Tobacco Smoking Status Current Every Day Smoker Notes: 1/ 2ppd, started at age 13/13 Vaccine List None recorded. Plan of Care Reminders Provider Appointments None ? ? recorded. Lab None ? ? recorded. Referral None ? ? recorded. Procedures None ? ? recorded. Surgeries None ? ? recorded. Imaging None ? ? recorded. Vitals 10/16/2019 10:00AM Office 30 Height Weight BMI Blood Pressure 160.02 cm 56.74 kg 22.2 kg/m2 132/74 mm[Hg] 04/11/2018 01:00PM Office 30 Height Weight BMI Blood Pressure 160.02 cm 57.74 kg 22.5 kg/m2 120/70 mm[Hg]
[2020-04-29 13:45] LABS: Abs Immature Grans 0.02 10^3/uL (0.0-0.06); Absolute Basophil Count 0.05 10^3/uL (0.0-0.2); Absolute Eosinophil Count 0.06 10^3/uL (0.0-0.7); Absolute Lymphocyte Count 2.07 10^3/uL (1.2-3.4); Absolute Monocyte Count 0.58 10^3/uL (0.1-0.8); Absolute Neutrophil Count 5.09 10^3/uL (1.2-6.7); Basophils % 0.6; Eosinophils % 0.8; HCT 40.4 % (36.0-46.0); HGB 13.7 g/dL (11.2-15.7); Immature Grans % 0.3; Lymphocytes % 26.3; MCH 32.1 pg (27.0-33.0); MCHC 33.9 % (32.0-36.0); MCV 94.6 fL (80-95); MPV 10.1 fL (8.0-11.0); Monocytes % 7.4; Neutrophils % 64.6; Nucleated RBC 0 %; Platelet Count 323 10^3/uL (130-400); RBC 4.27 10^6/uL (3.93-5.22); RDW 11.6 % (11.7-14.6); RDW-SD 40.2 fL; WBC 7.87 10^3/uL (4.4-10.8)
[2020-04-29 13:52] LABS: Bilirubin Negative (Negative); Blood Small (Negative); Clarity Clear (Clear); Glucose Negative (Negative); Ketones Negative (Negative); Leukocyte Esterase Negative (Negative); Nitrite Negative (Negative); Urobilinogen 0.2 EU/dL (Up TO 0.2)
[2020-04-29 14:01] LABS: ALT 24 U/L (14-59); AST 17 U/L (15-37); Albumin 4.4 g/dL (3.4-5.0); Alkaline Phosphatase 115 U/L (46-116); Anion Gap 6.4 mmol/L (3-11); BUN 22 mg/dL (7-18); Bilirubin, Total 0.6 mg/dL (0.2-1.0); CO2 28.6 mmol/L (21.0-32.0); Calcium 9.6 mg/dL (8.5-10.1); Chloride 103 mmol/L (98-107); Glucose 88 mg/dL (74-106); Potassium 4.2 mmol/L (3.5-5.1); Sodium 138 mmol/L (136-145); Total Protein 7.3 g/dL (6.4-8.2)
[2020-04-29 14:04] LABS: Epithelial Cells Few HPF (Negative); Other Cells Negative (Negative); WBC 0-2 HPF (0-5)
[2020-04-29 14:05] LABS: Bacteria Rare HPF (Negative); C & S Indicated? No; Casts Negative LPF (Negative); Crystals Negative HPF (Negative); Mucus Trace (Negative)
[2020-04-29 14:13] LABS: Vitamin D 25 Total 54.6 ng/ml (30-100)
[2020-04-29 14:34] LABS: ESR 16 mm/hr (0-30)
== END 2020-04-29 12:27 ==
LOC: NCHCN 12:07
PROVIDERS: PCP Nurse Practitioner Family; Visit Provider Nurse Practitioner Family
DX: R10.32 Left lower quadrant pain (principal); Z12.4 Encounter for screening for malignant neoplasm of cervix; Z11.51 Encounter for screening for human papillomavirus (HPV); Z00.00 Encounter for general adult medical examination without abnormal findings
CPT/HCPCS: 80053; 82306; 85652; 88142; 81003; 81015; 85025; 87624

== ENCOUNTER 2020-04-29 15:26 | Inpatient (IN) | payer MEDICAID, SELFPAY ==
[2020-04-29] VITALS (12 sets, daily range): BP systolic 105–147; BP diastolic 62–90; PULSE 54–75; RESP 11–23; TEMP 36.5–37.1; O2SAT 94–98
[2020-04-29] MEDS: Normal Saline 1,000 ML 125 ML IV ×2 (15:54→20:58)
[2020-04-29] MEDS: Normal Saline Flush 10 ML SYR IVP (15:54)
[2020-04-29] MEDS: PIPERACILLIN/TAZO 4.5 GM in Normal Saline 100 ML IVPB (15:54)
[2020-04-29 15:56] LABS: Lactate 1.6 mmol/L (0.6-1.4)
[2020-04-29 15:58] LABS: Abs Immature Grans 0.02 10^3/uL (0.0-0.06); Absolute Basophil Count 0.04 10^3/uL (0.0-0.2); Absolute Eosinophil Count 0.08 10^3/uL (0.0-0.7); Absolute Lymphocyte Count 2.65 10^3/uL (1.2-3.4); Absolute Monocyte Count 0.59 10^3/uL (0.1-0.8); Absolute Neutrophil Count 5.17 10^3/uL (1.2-6.7); Basophils % 0.5; Eosinophils % 0.9; HCT 37.1 % (36.0-46.0); HGB 13.1 g/dL (11.2-15.7); Immature Grans % 0.2; MCH 32.8 pg (27.0-33.0); MCHC 35.3 % (32.0-36.0); MCV 92.8 fL (80-95); Monocytes % 6.9; Neutrophils % 60.5; Nucleated RBC 0 %; Platelet Count 296 10^3/uL (130-400); RDW 11.6 % (11.7-14.6); RDW-SD 39.6 fL; WBC 8.55 10^3/uL (4.4-10.8)
[2020-04-29 16:26] LABS: ALT 24 U/L (14-59); AST 17 U/L (15-37); Albumin 3.8 g/dL (3.4-5.0); Alkaline Phosphatase 108 U/L (46-116); Anion Gap 9.1 mmol/L (3-11); BUN 18 mg/dL (7-18); Bilirubin, Total 0.5 mg/dL (0.2-1.0); CO2 25.9 mmol/L (21.0-32.0); CREATININE 0.9 mg/dL (0.55-1.02); Calcium 8.2 mg/dL (8.5-10.1); Chloride 102 mmol/L (98-107); Glucose 119 mg/dL (74-106); Potassium 3.3 mmol/L (3.5-5.1); Sodium 137 mmol/L (136-145); Total Protein 7.2 g/dL (6.4-8.2)
--- NOTE | 2020-04-29 17:01 | ED.GENADUL_ITS ---
Discharge Plan Disposition Patient Disposition: [facility] INPATIENT Condition: Stable Discharge Details Clinical Impression: Intra-abdominal abscess Primary Care Provider: Ricki Lopez ED Provider: Lui Vigil Home Meds and New Rx's Prescriptions: No Action celecoxib [Celebrex] 100 mg capsule 100 mg PO BID Qty: 60 RF: 2 carbidopa-levodopa [Sinemet] 25-100 mg tablet 2 tab PO QHS RF: 0 cholecalciferol (vitamin D3) [Vitamin D3] 1,000 UNIT capsule 1 tab PO DAILY RF: 0 pantoprazole 40 MG tablet,delayed release (DR/EC) 40 mg PO DAILY RF: 0 Medical Decision Making 17:13 -- 64-year-old female here with 3 to 4 weeks of abdominal discomfort, tender lower abdomen, found to have intra-abdominal abscess on CT the abdomen pelvis. I reviewed medical record, outpatient CT of the abdomen pelvis performed today, interpreted by radiology as: 1. Main findings here are in the sigmoid. There is extensive sigmoid diverticulosis. There also appears to be abnormal focal thickening of the lateral sigmoid wall consistent with an intramural abscess, most probably sequelae of recent diverticulitis. This measures approximately 2 x 1 cm. 2. No free fluid. No CT evidence of fistulous communication to the urinary bladder and no evidence of hepatic abscess. Labs reviewed: No leukocytosis, mild elevation of lactate. Potassium 3.3. Patient remaining n.p.o. I will give IV fluid with potassium. Will consult general surgery. 17:20 --I spoke with Dr. Argueta who will admit the patient. Lab Data Lab results reviewed: Yes I reviewed the patient's lab results. HPI General Mode of arrival: ambulatory . Date/Time Provider Initiated Documentation: 04/29/20 15:28 . Limitations to Documentation: no limitations . Information obtained by: patient . HPI Narrative: 64-year-old female presents with chief complaint of abnormal CT. Patient notes that she has had abdominal discomfort persistent over the past 3 to 4 weeks. She was seen by her primary care nurse practitioner who ordered a CT of the abdomen pelvis which was performed this morning and reveals an abscess intra-abdominally. Patient notes discomfort is moderate. No modifiers. No associated fever. No history of diverticulitis. Patient was told to come to the ED for evaluation and treatment. Related Data Home Medications Medication Instructions Recorded Confirmed cholecalciferol (vitamin D3) 1 tab PO DAILY 02/04/14 02/18/20 [Vitamin D3] pantoprazole 40 mg PO DAILY 04/28/16 02/18/20 celecoxib 100 mg capsule 100 mg PO BID #60 cap 02/04/18 02/18/20 carbidopa 25 mg-levodopa 100 mg 2 tab PO QHS tab 10/22/18 02/18/20 tablet Previous Rx's Medication Instructions Recorded celecoxib 100 mg capsule 100 mg PO BID #60 cap 02/04/18 Allergies Allergy/AdvReac Type Severity Reaction Status Date / Time No Known Allergies Allergy Verified 02/18/20 10:12 General Stated Complaint: Cellulitis MIRLANDE: 3 Review of Systems All systems reviewed & are unremarkable except as noted in HPI and below Constitutional Constitutional: Denies fever(s) Gastrointestinal Gastrointestinal: Reports as per HPI PFSH Medical History Anxiety associated with depression Arthritis of right knee Cataract, bilateral Chronic low back pain Common migraine COPD (chronic obstructive pulmonary disease) Cough Degenerative joint disease Foot fracture GERD (gastroesophageal reflux disease) Headache Heart murmur, systolic Low back pain Migraine headache without aura Mitral valve regurgitation Nuclear sclerotic cataract of left eye Nuclear sclerotic cataract of right eye Osteoarthritis of both knees Other specified anxiety disorders Posterior subcapsular age-related cataract, right eye Puncture wound Restless leg syndrome Tobacco dependence 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) Vitamin D deficiency Surgical History Status post cataract extraction and insertion of intraocular lens of right eye (03/01/18) Family History Maternal Grandfather Migraine Daughter Migraine Brother Migraine Sister Migraine Social History Smoking/Tobacco Use Status: Current every day Tobacco Type: cigarettes Smoking risk assessment performed?: Yes Alcohol Intake: never Drug use: Never Substance use type: does not use Current gender identity: female What is your relationship status?: Panel score (0-1 are the most socially isolated patients): 1 Do you feel safe at home: No Do you feel safe in your relationship?: Yes Exam Const General: cooperative and no acute distress HENMT Mouth: moist mucous membranes Eyes Conjunctivae: normal conjunctivae Sclera: normal sclerae Neck Neck: trachea midline and supple Resp Auscultation: clear to auscultation bilaterally, no rales, no rhonchi and no wheezes Cardio Rate: regular rate and not tachycardic Rhythm: regular rhythm GI Palpation: soft, not firm, no guarding, no masses, not rigid and tender in the LLQ and in the RLQ; with no rebound tenderness Skin General skin exam: no rashes or lesions noted Neuro General: patient alert, patient awake and tone normal Extrem General: no edema Psych Appearance: grossly normal Mental Status: mental status grossly normal Course Vital Signs Vital signs: Vital Signs Temperature 36.5 C 04/29/20 15:55 Pulse 75 04/29/20 15:55 Respiratory Rate 16 04/29/20 15:55 Blood Pressure 130/62 04/29/20 15:55 Pulse Oximetry 98 04/29/20 15:55 Temperature 36.5 C 04/29/20 15:55 Temperature Source Skin 04/29/20 15:55 Pulse 75 04/29/20 15:55 Respiratory Rate 16 04/29/20 15:55 Respiratory Effort Non-Labored 04/29/20 15:55 Blood Pressure 130/62 04/29/20 15:55 Blood Pressure Position Supine 04/29/20 15:55 Pulse Oximetry 98 04/29/20 15:55 Oxygen Delivery Method Room Air 04/29/20 15:55 Oxygen Flow Rate 0 04/29/20 15:55 Pain Level 0 04/29/20 15:55 Lab/Test Results Lab/Test Results: Laboratory Tests Range/Units 04/29/20 04/29/20 04/29/20 15:43 15:43 15:43 WBC (4.4-10.8) 10^3/uL 8.55 RBC (3.93-5.22) 10^6/uL 4.00 Hgb (11.2-15.7) g/dL 13.1 Hct (36.0-46.0) % 37.1 MCV (80-95) fL 92.8 MCH (27.0-33.0) pg 32.8 MCHC (32.0-36.0) % 35.3 RDW (11.7-14.6) % 11.6 L Plt Count (130-400) 10^3/uL 296 MPV (8.0-11.0) fL 10.0 Immature Gran % 0.2 Neutrophils % 60.5 Lymphocytes % 31.0 Monocytes % 6.9 Eosinophils % 0.9 Basophils % 0.5 Nucleated RBC % % 0 Absolute Neutrophils (1.2-6.7) 10^3/uL 5.17 Absolute Lymphocytes (1.2-3.4) 10^3/uL 2.65 Absolute Monocytes (0.1-0.8) 10^3/uL 0.59 Absolute Eosinophils (0.0-0.7) 10^3/uL 0.08 Absolute Basophils (0.0-0.2) 10^3/uL 0.04 VBG Lactate (0.6-1.4) mmol/L 1.6 H Sodium (136-145) mmol/L 137 Potassium (3.5-5.1) mmol/L 3.3 L Chloride (98-107) mmol/L 102 Carbon Dioxide (21.0-32.0) mmol/L 25.9 Anion Gap (3-11) mmol/L 9.1 BUN (7-18) mg/dL 18 Creatinine (0.55-1.02) mg/dL 0.9 Estimated GFR/1.73 m2 (mL/min/1.73m2) >= 60.00 Glucose (74-106) mg/dL 119 H Calcium (8.5-10.1) mg/dL 8.2 L Total Bilirubin (0.2-1.0) mg/dL 0.5 AST (15-37) U/L 17 ALT (14-59) U/L 24 Alkaline Phosphatase (46-116) U/L 108 Total Protein (6.4-8.2) g/dL 7.2 Albumin (3.4-5.0) g/dL 3.8
[2020-04-29] MEDS: Lactated Ringers 1,000 ML 125 ML IV (17:39)
[2020-04-29] MEDS: POTASSIUM CHLORIDE 10 MEQ/100 ML BAG 100 MEQ IVPB (17:39)
--- NOTE | 2020-04-29 18:24 | W.PM.HP.N ---
Date of service: 04/29/20 Time of Service: 18:24 Assessment and Plan Assessment and plan (1) S/P laparoscopic cholecystectomy: Status: Acute (2) Status post tubal ligation: Status: Acute (3) Intra-abdominal abscess: Status: Deleted (4) Diverticulitis of intestine with abscess without bleeding: Status: Acute Assessment and plan: Today we discussed the etiology of diverticula. She claims she did not know that she had them. They are quite extensive on CT. She denies any longstanding history of straining to move her bowels or changes in her bowel habits prior to April. She says there is no family history of diverticula. Her last colonoscopy was in 2017 and we need to get those records from [facility]. She will be admitted and started on IV Zosyn. We will continue to follow her closely and provide supportive care. She will need a repeat colonoscopy at some point. We also discussed that sometimes it can be very difficult to get the infection not out of the colon completely because of the normal tr that resides within the colon. So chronic infections can be hard to completely eradicate. And sometimes we do have to have a surgical intervention. However we will try to create this is a controlled elective environment, to avoid colostomy. I did discuss with her the 2 risks of diverticula including bleeding and perforation and the need for emergency surgery and colostomy. Currently she is stable and shows no signs of sepsis or peritonitis. We will continue with conservative medical management. We will continue with supportive care. History of Present Illness Consults Consult date: 04/29/20 Requesting physician: Lui Vigil Narrative: Patient is a 64-year-old female who saw her PCP today, she is found to have significant left lower quadrant pain and was sent for CT which shows a 2 x 1 cm intramural abscess. Patient states this really all started around [place] '. she was having some pain and pressure in the LLQ, and what she describes as discomfort and not feeling well. she cannot really give me a description of what that means. She denies any nausea vomiting. She denies any fever or chills. She had a couple episodes of loose bowels. but also couple episodes of slow bowels. She has not had much appetite. And she says is not really pain, is just a little sore. April 02 she just did not feel good and went to urgent care. She was having pain and a pressure sensation in the suprapubic region. they told her she had a UTI and she was started on antibiotic. She does not know the name of the antibiotic. I did look at her notes and there is no note from our urgent care. She does not know what antibiotics it was. While she was on the antibiotic she started to feel better. She continued to feel well for about a week after she was off the antibiotic. So for about the last 2 weeks, she felt better. Then this past week she started to feel poorly again-mostly the pain and pressure sensation in the pelvis. The office had contacted her that it was time for her yearly physical and she came in for her physical today. She saw her Mitul Robison, who ordered a CAT scan. Patient states she did have a colonoscopy 3 years ago, but she did not know she had diverticula. On the CT, I did review today it does show she has a very extensive diverticula and an intramural abscess. She has no fever or chills. She has no nausea and vomiting. She also does not have much of an appetite. She is vague about whether she thinks she is losing weight or not. And her bowels have been more diarrheal today. She is kind of vague in her history and minimizes her symptoms quite a bit. She also denies any trauma. Nor has she done any traveling outside the state. She says she tries to eat healthy for the most part. She denies a longstanding history of constipation or straining to go to the bathroom. She does not think that there have been diverticula in her family. Her last colonoscopy was at [place] we will try to reach these records Review of Systems All systems reviewed & are unremarkable except as noted in HPI and below PFS Medical History (Updated 04/30/20 @ 21:21 by Olena Argueta DO) Anxiety associated with depression Arthritis of right knee Cataract, bilateral Chronic low back pain Common migraine COPD (chronic obstructive pulmonary disease) Cough Degenerative joint disease Foot fracture GERD (gastroesophageal reflux disease) Headache Heart murmur, systolic Low back pain Migraine headache without aura Mitral valve regurgitation Nuclear sclerotic cataract of left eye Nuclear sclerotic cataract of right eye Osteoarthritis of both knees Other specified anxiety disorders Posterior subcapsular age-related cataract, right eye Puncture wound Restless leg syndrome Tobacco dependence 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) Vitamin D deficiency Surgical History (Updated 04/29/20 @ 22:21 by Olena Argueta DO) Status post cataract extraction and insertion of intraocular lens of right eye (03/01/18) Family History Maternal Grandfather Migraine Daughter Migraine Brother Migraine Sister Migraine Social History Smoking/Tobacco Use Status: Current every day Tobacco Type: cigarettes Smoking risk assessment performed?: Yes Alcohol Intake: never Drug use: Never Substance use type: does not use Current gender identity: female What is your relationship status?: Panel score (0-1 are the most socially isolated patients): 1 Do you feel safe at home: No Do you feel safe in your relationship?: Yes Meds Home Medications and Allergies Home Medications Medication Instructions Recorded Confirmed Type cholecalciferol (vitamin D3) 1 tab PO DAILY 02/04/14 04/29/20 History [Vitamin D3] pantoprazole 40 mg PO DAILY 04/28/16 04/29/20 History celecoxib 100 mg capsule 100 mg PO BID #60 cap 02/04/18 04/29/20 Rx carbidopa 25 mg-levodopa 100 mg 1 tab PO QHS tab 10/22/18 04/29/20 History tablet Allergies Allergy/AdvReac Type Severity Reaction Status Date / Time No Known Allergies Allergy Verified 04/29/20 18:56 Exam Const General: cooperative, healthy appearing, comfortable, no acute distress, well developed and well groomed Nutritional Appearance: average body habitus and well nourished Orientation: alert, awake and oriented x3 HENMT Head: normal to inspection, normocephalic and atraumatic Ears: hearing grossly normal bilaterally and external ears normal General nose exam: external nose normal Face and sinus: normal facial exam and sinuses nontender Mouth: oral mucosae normal, lip normal, tongue normal and moist mucous membranes Teeth and gingiva: dentition normal Eyes General: appearance normal, both eyes and all related structures Conjunctivae: conjunctivae normal Sclera: sclerae normal Pupils: PERRL Neck Neck: normal visual inspection and full ROM Chest Chest: normal inspection of the chest Resp Effort & Inspection: normal respiratory effort, able to speak in complete sentences, no cough, no nasal flaring, not tachypneic and no use of accessory muscles Auscultation: clear to auscultation bilaterally, no rales, no rhonchi and no wheezes Cardio Jugular venous pressure: no JVD Rate: regular rate Rhythm: regular rhythm GI Inspection: normal to inspection, no edema and distended Palpation: soft, no masses, tender (mild) in the LLQ and No ascites Auscultation: hypoactive bowel sounds Other: No hernias. She has had a lap jimmy. Skin General skin exam: no rashes or lesions noted Trauma: no lacerations or abrasions Neuro General: patient alert, patient oriented x3, oriented, gait normal, moves all extremities, no focal motor deficits and CN's II-XI intact bilaterally Cognition: normal cognition Speech: speech normal Gait: normal gait Motor: muscle tone normal throughout Extrem General: normal to inspection, full ROM and no clubbing, cyanosis or edema Psych Appearance: grossly normal and well kempt Mental Status: mental status grossly normal Speech and Movement: speech and movement normal Affect: normal affect Results Labs Result diagrams: 04/30/20 06:50 04/30/20 06:50 Labs: Laboratory Results - last 24 hr 04/29/20 04/29/20 04/29/20 15:43 15:43 15:43 WBC 8.55 RBC 4.00 Hgb 13.1 Hct 37.1 MCV 92.8 MCH 32.8 MCHC 35.3 RDW 11.6 L Plt Count 296 MPV 10.0 Immature Gran % 0.2 Neutrophils % 60.5 Lymphocytes % 31.0 Monocytes % 6.9 Eosinophils % 0.9 Basophils % 0.5 Nucleated RBC % 0 Absolute Neutrophils 5.17 Absolute Lymphocytes 2.65 Absolute Monocytes 0.59 Absolute Eosinophils 0.08 Absolute Basophils 0.04 VBG Lactate 1.6 H Sodium 137 Potassium 3.3 L Chloride 102 Carbon Dioxide 25.9 Anion Gap 9.1 BUN 18 Creatinine 0.9 Estimated GFR/1.73 m2 >= 60.00 Glucose 119 H Calcium 8.2 L Total Bilirubin 0.5 AST 17 ALT 24 Alkaline Phosphatase 108 Total Protein 7.2 Albumin 3.8 Last Vital Signs Temp 36.5 C 04/29/20 15:55 Pulse 55 L 04/29/20 17:34 Resp 11 L 04/29/20 17:35 BP 130/73 04/29/20 17:34 Pulse Ox 96 04/29/20 17:35 COVID-19 Screening Have you, or household traveled for leisure in last 14 days?: No Had IN PERSON contact w/suspected or confirmed C-19 person: No
[2020-04-29] MEDS: Refresh PLUS Eye Drops 0.4ml OU (20:57)
[2020-04-29] MEDS: Enoxaparin 40 MG/0.4 ML SYR SC (21:04)
[2020-04-29] MEDS: Carbidopa 25/Levodopa 100 TAB PO (21:09)
[2020-04-30 01:26] LABS: COVID-19 RT-PCR UVMMC Result Negative (Negative)
[2020-04-30] MEDS: PIPERACILLIN/TAZO 3.375 GM in Normal Saline 50 ML IVPB ×3 (01:59→17:43)
[2020-04-30 07:19] LABS: Abs Immature Grans 0.01 10^3/uL (0.0-0.06); Absolute Basophil Count 0.04 10^3/uL (0.0-0.2); Absolute Lymphocyte Count 1.72 10^3/uL (1.2-3.4); Absolute Monocyte Count 0.39 10^3/uL (0.1-0.8); Absolute Neutrophil Count 2.84 10^3/uL (1.2-6.7); Basophils % 0.8; HGB 12.4 g/dL (11.2-15.7); Immature Grans % 0.2; Lymphocytes % 33.7; MCH 31.6 pg (27.0-33.0); MCHC 33.5 % (32.0-36.0); MCV 94.4 fL (80-95); Monocytes % 7.6; Neutrophils % 55.7; Nucleated RBC 0 %; Platelet Count 276 10^3/uL (130-400); RBC 3.92 10^6/uL (3.93-5.22); RDW 11.7 % (11.7-14.6); RDW-SD 40.4 fL
[2020-04-30 07:40] LABS: ALT 15 U/L (14-59); AST 19 U/L (15-37); Albumin 3.5 g/dL (3.4-5.0); Alkaline Phosphatase 98 U/L (46-116); Anion Gap 8.3 mmol/L (3-11); BUN 15 mg/dL (7-18); Bilirubin, Total 0.9 mg/dL (0.2-1.0); CO2 24.7 mmol/L (21.0-32.0); CREATININE 0.9 mg/dL (0.55-1.02); Calcium 8.6 mg/dL (8.5-10.1); Chloride 107 mmol/L (98-107); Glucose 90 mg/dL (74-106); Potassium 4.2 mmol/L (3.5-5.1); Sodium 140 mmol/L (136-145); Total Protein 6.5 g/dL (6.4-8.2)
[2020-04-30 07:43] LABS: C-Reactive Protein < 0.05 mg/dL (0.0-0.3)
[2020-04-30 07:54] VITALS: BP 147/78; PULSE 63; RESP 17; TEMP 36.7; O2SAT 96
[2020-04-30] MEDS: Normal Saline 1,000 ML 125 ML IV (09:23)
--- NOTE | 2020-04-30 12:10 | W.PM.PROGNOT ---
Documented by User: LILLIAN Salvador 04/30/20 12:21 Date of Service Date of service: 04/30/20 Time of Service: 12:10 Assessment and Plan Assessment and plan (1) S/P laparoscopic cholecystectomy: Status: Acute (2) Status post tubal ligation: Status: Acute (3) Intra-abdominal abscess: Status: Deleted (4) Diverticulitis of intestine with abscess without bleeding: Status: Acute Assessment and plan: Continue NPO IV Zosyn Multiple bouts of diarrhea this morning Encouraged activity OOB as tolerated. Nicotrol inhalers ordered. Continue supportive care. Subjective Subjective Interval history since last seen: Patient reports that she has had 3 bouts of diarrhea this morning. She expresses having mild abdominal pain at this time. Exam Const General: cooperative, healthy appearing and comfortable Orientation: alert and oriented x3 Resp Effort & Inspection: normal respiratory effort, no audible wheezes and no cough Objective Last Vital Signs Temp 36.7 C 04/30/20 07:54 Pulse 63 04/30/20 07:54 Resp 17 04/30/20 07:54 BP 147/78 H 04/30/20 07:54 Pulse Ox 96 04/30/20 07:54 Laboratory Results - last 24 hr 04/29/20 04/29/20 04/29/20 15:43 15:43 15:43 WBC 8.55 RBC 4.00 Hgb 13.1 Hct 37.1 MCV 92.8 MCH 32.8 MCHC 35.3 RDW 11.6 L Plt Count 296 MPV 10.0 Immature Gran % 0.2 Neutrophils % 60.5 Lymphocytes % 31.0 Monocytes % 6.9 Eosinophils % 0.9 Basophils % 0.5 Nucleated RBC % 0 Absolute Neutrophils 5.17 Absolute Lymphocytes 2.65 Absolute Monocytes 0.59 Absolute Eosinophils 0.08 Absolute Basophils 0.04 VBG Lactate 1.6 H Sodium 137 Potassium 3.3 L Chloride 102 Carbon Dioxide 25.9 Anion Gap 9.1 BUN 18 Creatinine 0.9 Estimated GFR/1.73 m2 >= 60.00 Glucose 119 H Calcium 8.2 L Magnesium Total Bilirubin 0.5 AST 17 ALT 24 Alkaline Phosphatase 108 C-Reactive Protein Total Protein 7.2 Albumin 3.8 SARS-CoV-2 (PCR) Naswisamaryn COVID-19 PCR Ref Test Perform Site 04/29/20 04/30/20 04/30/20 17:45 06:50 06:50 WBC 5.10 D RBC 3.92 L Hgb 12.4 Hct 37.0 MCV 94.4 MCH 31.6 MCHC 33.5 RDW 11.7 Plt Count 276 MPV 10.0 Immature Gran % 0.2 Neutrophils % 55.7 Lymphocytes % 33.7 Monocytes % 7.6 Eosinophils % 2.0 Basophils % 0.8 Nucleated RBC % 0 Absolute Neutrophils 2.84 Absolute Lymphocytes 1.72 Absolute Monocytes 0.39 Absolute Eosinophils 0.10 Absolute Basophils 0.04 VBG Lactate Sodium 140 Potassium 4.2 D Chloride 107 Carbon Dioxide 24.7 Anion Gap 8.3 BUN 15 Creatinine 0.9 Estimated GFR/1.73 m2 >= 60.00 Glucose 90 Calcium 8.6 Magnesium 2.0 Total Bilirubin 0.9 AST 19 ALT 15 Alkaline Phosphatase 98 C-Reactive Protein < 0.05 Total Protein 6.5 Albumin 3.5 SARS-CoV-2 (PCR) Negative Nasopharyn COVID-19 PCR Not Applicable Ref Test Perform Site [facility] lab Documented by User: Olena Argueta DO 04/30/20 21:26 Assessment and Plan Assessment and plan (1) Diverticulitis of intestine with abscess without bleeding: Status: Acute Assessment and plan: Patient seen and examined. Agree with above. She denies having any abdominal pain while I am seeing her. She has had multiple bouts of loose stools today. But she says they are some formed. I think this is all related to her diverticulitis symptoms not C. difficile. Patient is very hungry and would like to eat. We will try clear liquids and see how she does. She says she was at the urgent care at April 02 or and was on antibiotics for a UTI. I do not see that she was in our urgent care. So I cannot find which antibiotic she was on. Clinically she feels better today. I am going to let her have clear liquids. And hopefully will DC her home in the morning on oral Cipro and Flagyl. no headaches. No CP or SOB. no productive cough. no dysuria. no leg pain or swelling. no thrush
--- NOTE | 2020-04-30 14:43 | INITIAL_ITS ---
- If Service Date Differs Date of service: 04/30/20 Time of Service: 14:44 Care Management Initial Assess REASON FOR HOSPITALIZATION:: Diverticulitis with abscess PAST MEDICAL HISTORY/PAST SURGICAL HISTORY:: Anxiety associalted with depression, arthritis of right knee, bilateral cataracts, chronic low back pain, common migraine, COPD, degenerative joint disease, foot fracture, GERD, heart murmur, low back pain, migraine headache without aura, mitral valve regurgitation, nuclear sclerotic cataract bilaterally, osteoarthritis of both knees, restless leg syndrome, tobacco dependence, CVA with visual field loss, vitamin D deficiency, cataract extractions PREVIOUS FUNCTIONAL STATUS/SOCIAL/FAMILY SUPPORTS:: Khalida resides with her , Sudarshan in [place], [place]. She is independent in the community at baseline. CURRENT FUNCTIONAL STATUS:: Khalida is up independently in her room without assistance. She continues to be closely monitored and treated with IV ABX. CM continues to follow. ADVANCE DIRECTIVES:: None on file at [facility]. Has patient been provided with info about the portal/API?: Yes Did the patient sign up for the portal?: Yes (Previously) CODE STATUS:: Full Code INSURANCE COVERAGE / FINANCIAL ISSUES:: Medicaid CURRENT HOME/COMMUNITY SERVICES/EQUIPMENT:: CPAP PRIMARY CARE PHYSICIAN:: Ricki Lopez NP POTENTIAL DISCHARGE NEEDS:: Follow up appointments. PATIENT/FAMILY EDUCATION NEEDS:: Review discharge instructions, discuss Ask Me Three. ANTICIPATED BARRIERS TO DISCHARGE:: None identified. TRANSPORTATION:: Via private vehicle with her SO. PLAN:: Khalida will return home when ready per MD. She remains on IV ABX, per MD she is being treated conservatively with hopes that she will not require surgical intervention. Upon discharge, she will follow up with her PCP and plan of care including outpatient appointments. She will transport via private vehicle with her significant other.
[2020-04-30 15:15] VITALS: BP 142/73; PULSE 53; RESP 18; TEMP 36.3; O2SAT 96
--- NOTE | 2020-04-30 15:57 | CHAPLAIN ---
Khalida was resting in bed when I visited. She was trying to use an [employer] laptop, but was frustrated with her. Her was going to drop her own off later. That was her main concern at the moment. I explained my role and offered support.
[2020-04-30 17:28] LABS: C Diff PCR Negative (Negative)
[2020-04-30] MEDS: Carbidopa 25/Levodopa 100 TAB PO (17:43)
[2020-04-30] MEDS: Pantoprazole 40 MG VIAL IVP (19:50)
[2020-04-30] MEDS: Normal Saline Flush 10 ML SYR IVP (19:50)
[2020-04-30 23:45] VITALS: BP 109/61; PULSE 50; RESP 16; TEMP 36; O2SAT 96
[2020-05-01] MEDS: PIPERACILLIN/TAZO 3.375 GM in Normal Saline 50 ML IVPB ×2 (01:36→10:30)
[2020-05-01] MEDS: Normal Saline 1,000 ML 75 ML IV (05:42)
[2020-05-01 07:29] VITALS: BP 147/78; PULSE 63; RESP 17; TEMP 36.7; O2SAT 96
[2020-05-01] MEDS: Normal Saline Flush 10 ML SYR IVP (07:37)
[2020-05-01] MEDS: Refresh PLUS Eye Drops 0.4ml OU (07:47)
--- NOTE | 2020-05-01 11:36 | DSE_ITS ---
Date of service: 05/01/20 Time of Service: 11:36 DS: Diagnosis Discharge Diagnosis (1) S/P laparoscopic cholecystectomy: Status: Acute (2) Status post tubal ligation: Status: Acute (3) Diverticulitis of intestine with abscess without bleeding: Status: Acute Discharge Plan Disposition Patient Disposition: HOME Condition: Stable Discharge Details Reason For Visit: DIVERTICULITIS W/ABSCESS Admit Date/Time: 04/29/20 18:18 Admit Provider: Olena Argueta Attending Provider: Olena Argueta Primary Care Provider: Ricki Lopez Hospital Course Hospital Course: Patient was having suprapubic abdominal pains starting around 02 April. She thought she had a UTI and went to urgent care. They prescribed an antibiotic for her. She does not know the name of the antibiotic. She took this antibiotic and felt better. For about 10 days then slowly after that her symptoms came back. She recently had a physical with Jessica Robison. Dr. Robison thought she was tender in the left lower quadrant and ordered CT as an outpatient. The CT showed diverticulitis and a intramural abscess. Patient was directed go to the ER. I did see her in the ER. Patient states she was not having any pain she denies fevers and chills. Based on the CT findings I did admit her. Patient has been doing well clinically she had no fevers or chills. She had no nausea and vomiting. She had some mild left lower quadrant pain. This is improved and she is pain-free at this time. She will be discharged on a low residue diet and on Augmentin. And I will see her back in the clinic on May 06. Her last colonoscopy was 3 3 to 5 years ago in [place]. She should follow-up and have a repeat colonoscopy. Either with myself or in [place]. Home Meds and New Rx's Prescriptions: New amoxicillin-pot clavulanate [Augmentin] 875-125 mg tablet 1 tab PO Q12H 7 Days Qty: 14 RF: 0 Bio-K plus 50 billion cell capsule,delayed release(DR/EC) 1 cap PO DAILY Qty: 30 RF: 0 Continued celecoxib [Celebrex] 100 mg capsule 100 mg PO BID Qty: 60 RF: 2 carbidopa-levodopa [Sinemet] 25-100 mg tablet 1 tab PO QHS RF: 0 cholecalciferol (vitamin D3) [Vitamin D3] 1,000 UNIT capsule 1 tab PO DAILY RF: 0 pantoprazole 40 MG tablet,delayed release (DR/EC) 40 mg PO DAILY RF: 0 Discharge Instructions Additional Instructions: -Low residue diet/low fiber diet. In 2 weeks time we will transition you to a high-fiber diet. -No lifting over 10 pounds -Follow-up with Dr. Argueta in clinic April 05. Please call to make an appointment on Sunday. [phone]. -Eat 12 glasses of water a day. Alcohol and coffee do not count. -Stop smoking! -Augmentin p.o. antibiotic for 7 days. This may cause diarrhea. Yogurt daily while on antibiotics. Also a prescription for a probiotic. If you start having fevers or chills, nausea and vomiting, more than 6 stools a day, or severe abdominal pain, please return to the emergency department. What is a gastrointestinal soft diet? This diet is soft in texture, low in fiber, and easy to digest. The goal is to decrease) in the bowel that may cause and discomfort. This diet is often used after abdominal surgery or as a transitional diet after flares. Meats & Meat Substitutes ? Foods Allowed: Chicken, turkey, fish, tender cuts of beef and pork, ground meats, eggs, creamy nut butters, tofu, skinless hot dogs, sausage patties without whole spices ? Foods to Avoid : Tough, fibrous meats with gristle, meat with casings (hot dogs, sausage, kielbasa), lunch meats with whole spices, shellfish, beans, chunky peanut butter, nuts Fruits and Juices ? Foods Allowed: Fruit juices without pulp, banana, avocado, applesauce, canned peaches and pears, cooked fruit without the skin/seeds ? Foods to Avoid: Juices with pulp, fresh fruit (except banana and avocado), dried fruits, canned fruit cocktail and pineapple, coconut, frozen/thawed berries Vegetables ? Foods Allowed: Well-cooked or canned vegetables, potatoes without skin, tomato sauces, vegetable juice ? Foods to Avoid: Raw vegetables, all corn, all mushrooms, stewed tomatoes, potato skins, stir-marvin vegetables, sauerkraut, pickles, olives, all dried beans, peas, and legumes Cereals and Grains ? Foods Allowed: Low- fiber dry or cooked cereals (less than 2 grams fiber per serving), white rice, pasta, macaroni, or noodles ? Foods to Avoid: Cereals with nuts, berries, dried fruits, whole grain cereals, bran cereals, granola, brown or wild rice, whole grain pasta Breads and Crackers ? Foods Allowed: White/refined breads and rolls, plain bagel, toast, plain crackers, mckenna crackers ? Foods to Avoid: Whole grain breads- including white whole grain; bread/ rolls with raisins, nuts or seeds, multi-grain crackers Dairy ? Foods Allowed: Milk, cheese, yogurt, milkshakes, pudding, ice cream, cottage cheese, sherbet ; lactose free or low lactose versions if lactose intolerant ? Foods to Avoid: Dairy product mixed with fresh fruit (except banana), berries, nuts or seeds Desserts ? Foods Allowed: Plain cake, pudding, custard, ice cream, sherbet, gelatin, fruit whips ? Foods to Avoid: Any dessert that contains nuts, dried fruits, coconut, or fruits with seeds Herbs and Spices ? Foods Allowed: All ground spices or herbs, salt ? Foods to Avoid: Whole spices such as peppercorns, whole cloves, anise seeds, celery seeds, ethel, hyun seeds, and fresh herbs Snacks/Other Foods ? Foods Allowed: Sugar, honey, jelly, mayonnaise, mustard, soy sauce, oil, butter, margarine, marshmallows, cookies without dried fruits or nuts, snack chips and pretzels using refined flours ? Foods to Avoid: Carbonated beverages, jams or jellies with seeds, popcorn After several weeks, slowly start to reintroduce the ?Foods to Avoid? back into your diet unless your doctor has told you otherwise. Try a small portion of one of these foods each day. If it does not bother you within 24 hours, it can be added to your diet. Continue to add new foods in this way. Some people may continue to have food sensitivities and may need to continue to avoid certain foods. If you cannot tolerate a food, avoid that food for a few weeks before you try it again. Guidelines when eating 1. Avoid any food that you cannot tolerate or that causes gas, bloating, or stomach pain. 2. Make time for your meals. Do not eat while you are in a hurry. Cut your food into small pieces. Chew each bite to a mashed potato consistency. Do not eat when you cannot concentrate on chewing well. 3. Drink at least 6-8 cups of fluid per day Fluids include: water, coffee, tea, juice, milk, popsicles, soups, gelatin, pudding, ice cream, sherbet, and yogurt. In addition, choose caffeine-free beverages more often, especially if you are having diarrhea. DIVERTICULAR DISEASE OVERVIEW ? A diverticulum is a pouch-like structure that can form through points of weakness in the muscular wall of the colon (ie, at points where blood vessels pass through the wall). Diverticulosis affects men and women equally. The risk of diverticular disease increases with age. It occurs throughout the world but is seen more commonly in developed countries. WHAT IS DIVERTICULAR DISEASE? Diverticulosis ? Diverticulosis merely describes the presence of diverticula. Diverticulosis is often found during a test done for other reasons, such as flexible sigmoidoscopy, colonoscopy, or barium enema. Most people with diverticulosis have no symptoms and will remain symptom free for the rest of their lives. A person with diverticulosis may have diverticulitis, or diverticular bleeding. Diverticulitis ? Inflammation of a diverticulum (diverticulitis) occurs when there is thinning and breakdown of the diverticular wall. This may be caused by increased pressure within the colon or by hardened particles of stool, which can become lodged within the diverticulum. The symptoms of diverticulitis depend upon the degree of inflammation present. The most common symptom is pain in the left lower abdomen. Other symptoms can include nausea and vomiting, constipation, diarrhea, and urinary symptoms such as pain or burning when urinating or the frequent need to urinate. Diverticulitis is divided into simple and complicated forms. ?Simple diverticulitis, which accounts for 75 percent of cases, is not associated with complications and typically responds to medical treatment without surgery. ?Complicated diverticulitis occurs in 25 percent of cases and usually requires surgery. Complications associated with diverticulitis can include the following: ?Abscess ? a localized collection of pus ?Fistula ? an abnormal tract between two areas that are not normally connected (eg, bowel and bladder) ?Obstruction ? a blockage of the colon ?Peritonitis ? infection involving the space around the abdominal organ ?Sepsis ? overwhelming body-wide infection that can lead to failure of multiple organs Diverticular bleeding ? Diverticular bleeding occurs when a small artery located within a diverticulum is eroded and bleeds into the colon. Diverticular bleeding usually causes painless bleeding from the rectum. In approximately 50 percent of cases, the person will see maroon or bright red blood with bowel movements. Is bleeding with a bowel movement normal? ? It is not normal to see blood in a bowel movement; this can be a sign of several conditions, most of which are not serious (eg, hemorrhoids) but some of which are serious and require immediate treatment. Anyone who sees blood after a bowel movement should consult with their healthcare provider to determine if further testing or evaluation is needed. DIVERTICULOSIS AND DIVERTICULITIS DIAGNOSIS ? Diverticulosis is often found during tests performed for other reasons. ?Barium enema ? This is an x-ray study that uses barium in an enema to view the outline of the lower intestinal tract. This is an older test and has been largely replaced by computed tomography (CT) scan. ?Flexible sigmoidoscopy ? This is an examination of the inside of the sigmoid colon with a thin, flexible tube that contains a camera. ?Colonoscopy ? This is an examination of the inside of the entire colon. ?CT scan ? A CT scan is often used to diagnose diverticulitis and its complications. If diverticulitis (not just diverticulosis) is suspected, the above three tests should not be used because of the risk of perforation. TREATMENT Diverticulosis ? People with diverticulosis who do not have symptoms do not require treatment. However, most clinicians recommend increasing fiber in the diet, which can help to bulk the stools and possibly prevent the development of new diverticula, diverticulitis, or diverticular bleeding. Fiber is not proven to prevent these conditions in all patients but may help to control recurrent episodes in some. Increase fiber ? Fruits and vegetables are a good source of fiber. Fiber content of packaged foods can be calculated by reading the nutrition label. Seeds and nuts ? Patients with diverticular disease have historically been advised to avoid whole pieces of fiber (such as seeds, corn, and nuts) because of concern that these foods could cause an episode of diverticulitis. However, this belief is completely unproven. We do not suggest that patients with diverticulosis avoid seeds, corn, or nuts. Diverticulitis ? Treatment of diverticulitis depends upon how severe your symptoms are. Home treatment ? If you have mild symptoms of diverticulitis (mild abdominal pain, usually left lower abdomen), you can be treated at home with a clear liquid diet and oral antibiotics. However, if you develop one or more of the following signs or symptoms, you should seek immediate medical attention: ?Temperature >100.1?F (38?C) ?Worsening or severe abdominal pain ?An inability to tolerate fluids Hospital treatment ? If you have moderate to severe symptoms, you may be hospitalized for treatment. During this time, you are not allowed to eat or drink; antibiotics and fluids are given into a vein. If you develop an abscess of the colon, you may require drainage of the abscess (usually performed by placing a drainage tube across the abdominal wall) or by surgically opening the affected area. Surgery ? If you develop a generalized infection in the abdomen (peritonitis), you will usually require an emergency operation. A two-part operation may be necessary in some cases. ?The first operation involves removal of the diseased colon and creation of a colostomy. A colostomy is an opening between the colon and the skin, where a bag is attached to collect waste from the intestine. The lower end of the colon is temporarily sewed closed to allow it to heal. ?Approximately three to six months later, a second operation is performed to reconnect the two parts of the colon and close the opening in the skin. You are then able to empty your bowels through the rectum. Sometimes patients require up to a year to recover from the first operation, depending on how sick they were. In non-emergency situations, the diseased area of the colon can be removed and the two ends of the colon can be reconnected in one operation, without the need for a colostomy. Surgery versus medical therapy ? An operation to remove the diseased area of the colon may be necessary if you do not improve with medical therapy. After an episode of uncomplicated diverticulitis, elective surgery is generally not required as the risk of another attack or requiring emergency surgery is low. However, patients with persistent symptoms attributable to diverticulitis, a history of complicated diverticulitis, or a compromised immune system should be evaluated for possible surgery to prevent another attack. In such patients, another attack has been associated with a higher risk of complications or . Of course, the decision will also depend in part upon your other medical conditions and ability to undergo surgery. In many cases, an elective operation can be performed laparoscopically, using small incisions, rather than the typical vertical (up and down) abdominal incision. Laparoscopic surgery usually allows you to recover more quickly and shortens the hospital stay. After diverticulitis resolves ? After an episode of diverticulitis resolves, if you have not had a recent colonoscopy, the entire length of the colon should be evaluated to determine the extent of disease and to rule out the presence of abnormal lesions such as polyps or cancer. Recommended tests include colonoscopy, barium enema and sigmoidoscopy, or CT colonography. Diverticular bleeding ? Most cases of diverticular bleeding resolve on their own. However, some people will need further testing or treatment to stop bleeding, which may include a colonoscopy, angiography (a treatment that blocks off the bleeding artery), bleeding scan, or surgery. DIVERTICULAR DISEASE PROGNOSIS Diverticulosis ? Over time, diverticulosis may cause no problems or it may cause episodes of bleeding and/or diverticulitis. Approximately 15 to 25 percent of people with diverticulosis will develop diverticulitis, while 5 to 15 percent will develop diverticular bleeding. Diverticulitis ? Approximately 85 percent of people with uncomplicated diverticulitis will respond to medical treatment, while approximately 15 percent of patients will need an operation. After successful treatment for a first attack of diverticulitis, one-third of patients will remain asymptomatic, one- third will have episodic cramps without diverticulitis, and one-third will go on to have a second attack of diverticulitis. The prognosis tends to remain similar following a second attack of diverticulitis. Only 10 percent of people remain symptom-free after a second attack. Subsequent attacks tend to be of similar severity, not increasing in severity as previously believed. High Fiber Diet What is Dietary Fiber? All fiber comes from plants, bushes, kwabena or trees. Of course, the ones that we eat provide us with fruits, vegetables and grains. There are many different types of fiber but the three that are most important to the health of the body are: Insoluble Fiber This fiber does not dissolve in water, nor is it fermented by the bacteria residing in the colon. Rather, it retains water and in so doing, helps to promote a larger, bulkier and more regular bowel activity. This, in turn, may be important in preventing disorder such as diverticulosis and hemorrhoids, and in sweeping out certain toxins and cancer causing carcinogens. Sources of insoluble fiber are: ? whole grain wheat and other whole grains ? corn bran, including popcorn, unflavored and unsweetened ? nuts and seeds ? potatoes and the skins from most fruits from trees such as apples, bananas and avocados ? many green vegetables such as green beans, zucchini, celery and cauliflower ? some fruit plants such as tomatoes and kiwi Soluble Fiber These fibers are fermented or used by the colon bacteria as a food source or nourishment. When these good bacteria grow and thrive, many health benefits occur in both the colon and the body. Soluble fiber is present in some degree in most edible plant foods, but the ones with the most soluble fiber include: ? legumes such as peas and most beans, including soybeans ? oats, rye and barley ? many fruits such as berries, plums, apples bananas and pears ? certain vegetables such as broccoli and carrots ? most root vegetables ? psyllium husk supplement products Prebiotic Soluble Fiber These are relatively newly discovered soluble plant fibers. The technical name for this fiber is inulin or fructan. When these soluble fibers are fermented by the good colon bacteria, some further significant health benefits have been shown to occur by research in many medical centers. These soluble prebiotic fibers occur in significant amounts in: ? asparagus ? yams ? onions ? garlic ? bananas ? leeks ? agave ? chicory and other root vegetables such as [place] artichokes ? wheat, rye and barley (smaller amounts) Benefits of a High Fiber Diet The health benefits of a high fiber diet, consumed on a regular basis and reaching recommended amounts (below), are now fairly well-defined. There are some additional benefits in the early research stage with the prebiotic soluble fibers. What is now known regarding a high fiber diet include: Bowel Regularity A high fiber diet promotes regularity with a softer, bulkier and regular stool pattern. This decreases the chance of hemorrhoids, diverticulosis and perhaps colon cancer. Cholesterol and Reduced Triglycerides The soluble fibers are the ones that will reduce cholesterol levels when used on a regular basis. Psyllium husk and prebiotic soluble fiber will also reduce cholesterol. They may also reduce the incidence of coronary heart disease. Oats, flax seeds and legumes or beans are the recommended fibers. Colon Polyps and Cancer It is still not certain if a high fiber diet helps prevent colon cancer. Considerable research suggests that this may occur. Certainly it makes sense to increase regularity and so speed the movement of cancer causing carcinogens through the bowel. In addition, reducing a heavy meat diet reduces the bile flow from the liver in a favorable way. This, too, reduces the amount of carcinogens that reach and are manufactured in the colon. Finally, a high fiber diet, including prebiotic soluble fiber, increases the integrity and health of the wall of the colon. The risk of cancer may be reduced. Colon Wall Integrity A high fiber diet changes the bacterial makeup of the colon toward a more favorable balance. For instance, it is known that those people with obesity, diabetes type 2 and inflammatory bowel disease have a predominance of bad bacteria in the colon. This, in turn, may render the bowel wall weak and allow bacteria and, indeed, even toxins to seep through. A high fiber diet with a modest reduction in animal and meat products may return the bacterial makeup to a more positive balance. This, in particular, has been seen when the soluble fiber prebiotics are added to the diet. Blood Sugar Soluble fiber such as in legumes (beans), oats and in prebiotic fibers slows the absorption of blood sugar and so helps regulate the sugar in the blood. Insoluble fiber on a regular basis is associated with reduced risk of type 2 diabetes. Weight Loss High fiber diets are more filling and give a sense of fullness sooner than an animal and meat based diet does. In addition, the soluble prebiotic fibers have been shown to turn off the hunger hormones produced in the wall of the gut and to increase the hormones that give a sense of fullness. Those hormones are made in the wall of the gut. New medical research has shown that the bacterial makeup in the colon in overweight people is abnormal to the extent that they manufacture and absorb almost twice the number of calories through the colon wall as do normals. Prebiotic fibers (below) will help change this hormonal balancein a favorable way. Bacteria and the Function of the Colon The colon finishes the digestive process. Hopefully, the waste products move through in a nice regular manner. Insoluble fibers help this process by retaining water and so producing a bulkier, softer stool, which is easy to pass. The additional role of the colon is to provide a home for an enormous number of micro-organisms, mostly bacteria. Recent research has shown that there are over 1,000 species of bacteria with a total bacterial count ten times the number of cells in the body. These bacteria play a major role in keeping the colon wall itself healthy. In addition, these good bacteria produce a very strong immune system for the body. They significantly increase calcium absorption and bone density. They provide other documented benefits. It is the soluble fibers in the diet that are so effective in stimulating the growth of good colon bacteria. How Much is Enough? The amount of fiber in food is measured in grams. National nutritional authorities recommend the following amounts of dietary fiber daily. Under Age 50 Over Age 50 Men 38 grams 30 grams Women 25 grams 21 grams For a week or so, it is best to tally the amount of fiber you are consuming. Boxed and packaged foods will have the amount of fiber per serving on the nutrition label. Which Fibers and Which Foods are Best? As noted, healthy fiber is only found in plants. The three major categories are whole grains, fruits and vegetables. Whole Grains Wheat, oats, barley, wild or brown rice, amaranth, buckwheat, bulgur, corn, millet, quinoa, rye, sorghum, teff and triticals. By far, wheat, oats and wild or brown rice are most common. Always buy whole grain products. White bread, baked goods and rolls almost always are made from wheat flour. Wheat flour is white because most of the fiber, vitamins and other nutrients have been removed. Try not buy enriched grains. What this means is that simple white flour has had vitamins added to it by the recreation technician. The word, enriched, implies a good and healthy product. On the contrary, enriched means that most of the fiber has been removed and a few vitamins added. Fruits Fruits come from trees such as apple and pear or from bushes or kwabena. You should eat a wide variety of fruits, preferably with every meal. In many cases, the skin of a fruit such as apple will contain much of the insoluble fiber while the pulp contains most of the soluble fiber. To the extent possible, buy organic fruits as these will have little or no pesticides. Always wash fruit. Vegetables Eat a wide variety of vegetables. They should be a mainstay of lunch and dinners. Frozen vegetables retain as much nutrition and fiber as fresh vegetables. As with fruit, try to buy organic to reduce any residual pesticide ingestion. Wash fresh vegetables thoroughly. Cruciferous vegetables such as broccoli, [place] sprouts and cauliflower contain certain chemicals such as sulforaphane. This substance has very strong anti-cancer properties and should be eaten frequently. Legumes, Beans, Peas and Soybeans These vegetables have plenty of soluble fiber and should be part of a varied vegetable intake. Beans, in particular, contain a certain type of fiber that may lead to harmless gas or bloating. Nuts and Seeds These are rich sources of fiber and are a good substitute for sweets such as candies and baked sweet goods. While nuts and seeds are rich in fiber, they also contain vegetable fat and so can and do add calories. Read the Labels As noted, fresh and frozen foods are usually better. They have good nutrition and few, if any, chemicals added to them. When buying packaged foods and, in particular grains, look for three things: ? The first word on the label should be whole, such as whole wheat or whole grain. ? Check out the calories and the amount of fiber in a serving. ? How many and what other additives or chemicals are added. Fewer is always better. Do you know what each additive does? Some are added not for the benefit of the physical damage appraiser but rather for manufacturers. These could and do include sugar, artificial flavor, chemicals to prevent oxidation and spoilage, emulsifiers to blend the product. You have to be a concrete finisher. Fiber Facts, Nuggets and Pearls ? For breakfast you can easily get the day started well by using a high fiber, whole grain cereal. Check the labels. Add fruit such as blueberries and bananas. If you are an egg eater, use whole wheat or grain toast. Adding wheat germ gives you a good fiber kick. ? Always use whole grain or wheat with rolls and sandwiches. Does your fast food store not have them? Perhaps you look elsewhere. Eating an occasional black garcia or veggie burger provides variety. ? Snacks should consist of fruit and/or nuts. While nuts are loaded with fiber, they are an energy rich food, meaning they have a lot of calories in a small packet. ? Fruit juices should contain pulp. Clear juices such as clear orange, pear or apple juice contain little fiber and have a lot of fructose. Prune juice is usually high in fiber. ? Homemade soups ? adding fresh or frozen vegetables to a chicken or vegetable stock is a good way to start homemade soup. ? Salads ? adding cooked and then chilled vegetables provide great flavoring to almost any salad. Remember, a fletcher salad has lots of cooked corn in it. Small slices of apples or oranges and nuts such as chopped walnuts or sliced almonds always adds taste, variety and fiber to almost any salad. ? Fruit ? Try to eat fruit of some type with almost every meal. ? Rethink how you place the various foods on your dinner plate. Reducing the portions of the meat or animal food portion to the side with equal or more portions of vegetables, legumes and fruits portion always allows for more fiber. There was never anything magic about making the meat or animal food portion the main part of the dinner plate. Eating from smaller plates can, over time, trick your mind and care home habit of using a dinner plate. Again, there is nothing magic in an 11, 12, or 13 inch dinner plate. Fiber Supplements There are a variety of fiber supplements available on the food or pharmacy shelves. Psyllium This soluble plant fiber has been used in [place] for over 2,000 years. It is a soluble fiber with mucilage in it. This acts to retain a lot of water and also is fermented by colon bacteria. When 7 grams a day are used, it does lower cholesterol. Metamucil in various forms is psyllium. Methyl Cellulose All the cellulose products come from finely ground wood chips which are then treated in a variety of ways such as boiling in acids. Methyl cellulose is an insoluble fiber which does dissolve in water. It is also an emulsifier, meaning it blends oils and water. Citrucel is methyl cellulose (MC). MC may not be appropriate for Crohn?s disease or ulcerative colitis as several medical studies have shown that certain emulsifiers dissolve the mucous lining of the colon in animals prone to Crohn?s disease. This then allows bacteria to invade the underlying tissue. Inulin Inulin is a soluble prebiotic fiber found in many foods and which are fermented mostly in the left side of the colon. It is available in a supplement as generic inulin and in Fiber Choice. Oligofructose FOS These are also prebiotic fibers. They are fermented very quickly in the right side of the colon. Prebiotin This product is a combination of oligofructose, which feeds the bacteria in the right side of the colon and inulin, which does the same in the left side of the colon. There seems to be a benefit for this particular formula based on medical research. Prebiotic Soluble Fiber These may be the healthiest of all the soluble fibers. They grow in many plants and have had a great deal of research done on them in the last 10-15 years. These fibers are found in asparagus, yams and other root vegetables such as chicory, garlic, onion, leeks and in smaller amounts in wheat. This research has shown the following: ? Increase in good and decrease in bad colon bacteria ? Increase calcium absorption and enhanced bone mass ? Enhanced immune system ? Appetite and weight control by changing the hormone appetite signals to the brain ? May decrease colon cancer incidence ? Reduce or correct a leaky colon Eating a wide variety of plant food up to the recommended amount will likely give you enough prebiotic fiber. Supplements such as Prebiotin can be added to the diet. Short Chain Fatty Acids (SCFA) Some rather remarkable research findings have shown that one of the benefits of ingesting a lot of soluble fiber, in particular the prebiotic ones, results in larger amounts of SCFAs in the colon. These SCFAs are made by the good bacteria in the colon such as Bifidobacter and Lactobacillus. These small molecules have been shown to do the following: ? Enhance the health and integrity of the colon wall ? Provide nourishment for the cells that actually line the colon ? Increases the acidity of the colon which is a very real health benefit ? Stabilize blood sugar for diabetics ? Reduce blood cholesterol and triglyceride ? Significantly enhance immunity ? May be a benefit for Crohn?s disease and ulcerative colitis patients Fiber and Gas Everyone has intestinal gas and that is a good thing. It means that bacteria, hopefully the good ones, are thriving. The normal amount of flatus passed each day depends on sex and what is eaten. The normal number of flatus is 10-20 times a day. When the bacteria that make intestinal gases are growing, it also means that other good bacteria are using the same fibers to grow and produce multiple health benefits, including the production of healthy short-chain fatty acids. These substances are produced quietly in the colon and produce many health-related outcomes. Soluble fiber should always be used in a gradual manner. If too much is consumed at any one time, then excess, but harmless, intestinal gas can occur. People with irritable bowel syndrome are particularly prone to bloating and mild cramping. In this instance, soluble fiber in the diet or supplement should be used in small doses and increased gradually. Finally, prebiotic fibers tend to cause the production of short-chain fatty acids which acidify the colon. This, in turn, reduces or stops the growth of bacteria that make the smelly hydrogen sulfide gases that produce noxious flatus. People who consume many vegetables with prebiotics or take a prebiotic fiber supplement often have non-odoriferous flatus. Fiber and Irritable Bowel Syndrome Irritable bowel syndrome (IBS) is one of the most common disorders of the lower digestive tract. The symptoms of IBS can be quite varied. They can be a mix of several symptoms such as constipation, diarrhea, crampy abdominal discomfort, bloating and gas. An attack of IBS can be triggered by emotional tension and anxiety, poor dietary habits and certain medications. It is now known that infections in the intestine can lead to long-term IBS symptoms. Increased amounts of fiber in the diet can help relieve the symptoms of irritable bowel syndrome by producing soft, bulky stools. This helps to normalize the time it takes for the stool to pass through the colon. Recent medical research with newer techniques has shown some surprising and dramatic findings for IBS patients. Specifically, there is a very significant and abnormal shift of bacteria from those that provide health benefits to those bad bacteria that we really do not want in the gut. The technical name for this bad group of bacteria is called Firmicutes. Along with this abnormal bacterial collection, there is a smoldering low-grade inflammation in the gut wall that may contribute to symptoms. The goal for IBS patients should be to gradually increase the soluble dietary fibers in the diet so as to promote the growth of good bacteria and so suppress the bad ones along with the associated inflammation. IBS patients need to be careful of the amount of soluble fiber they consume. The reason for this is that, while the good colon bacteria thrive on these fibers and produce health benefits, other gas-forming bacteria may generate excessive but harmless gas and subsequent bloating. Thus, soluble plant fibers or a dietary prebiotic supplement should be taken in small initial doses and then gradually increased to tolerance. Fiber and Colon Polyps/Cancer Colon cancer is a major health problem. This disease is most common in Western cultures. It is not seen very often in rural cultures where the diet is mostly plant based. Usually, colon cancer starts out as a colon polyp, a benign mushroom-shaped growth. In time it grows, and in some people it becomes cancerous. Colon cancer is usually always curable if polyps are removed when found or if surgery is performed at an early stage. It is now known that people can inherit the risk of developing colon cancer, but diet is important, too. As noted, there is a very low rate of colon cancer in residents of countries where grains are unprocessed and retain their fiber. It seems that in the [place] world, cancer-containing agents (carcinogens) remain in contact with the colon wall for a longer time and in higher concentrations. So, a large bulky stool may act to dilute these carcinogens by moving them through the bowel more quickly. Less carcinogenic exposure to the colon may mean fewer colon polyps and less cancer. A very current review of the entire world?s literature on the effect of fiber on colon polyps and cancer prevention has shown rather clearly that for every 10 grams of fiber added to the diet, there is a 10% reduction in incidence of colon cancer. So the recommended 30 gram fiber diet would result in a 30% less chance of getting these tumors. There are also substances produced in the colon by the good bacteria that seem to retard certain pre-cancer factors from developing. They are called short- chain fatty acids (SCFA). See above for description of SCFAs. A high fiber diet increases these substances. So, the combination of dietary fiber and the production of short-chain fatty acids have a clear health benefit. Fiber and Diverticulosis Prolonged, vigorous contraction of the colon over a long period of time may result in diverticulosis. This increased pressure causes small and, eventually, larger ballooning pockets to form. These pockets by themselves cause no problem. However, sometimes they become infected (diverticulitis) or even break open (perforate) causing infection or inflammation within the abdomen (peritonitis). A high fiber diet increases the bulk in the stool and thereby reduces the pressure within the colon. By so doing, the formation of pockets may be reduced or possibly even stopped. In the past, many physicians were fearful that seeds as in tomatoes, nuts or berries were harmful and could get inside these pockets and rattle around, causing damage. We now know that this has never been the case and that these foods contain lots of fiber and are actually beneficial for diverticulosis patients. Certain bulking agents such as psyllium are traditional types of bulk producing supplements. Psyllium is a soluble fiber. Combining it with insoluble fiber as in wheat bran or corn bran (no gluten) can enhance this bulking effect even more. A product containing a prebiotic, psyllium and wheat bran is probably a very good combination for bowel regularity. Prebiotin Regularity/Diverticulosis is one such product. Activity:: No lifting over 10 pounds Equipment/Supplies:: No Equipment Needed Diet:: Low fiber diet. DS: Summary Time Spent with Patient providing and/or coordinating discharge services: Less than 30 minutes Status at Discharge Functional status at discharge: independent ambulation Overall status at discharge: patient is progressing back to baseline Mental Status: mental status grossly normal Speech and Movement: speech and movement normal Mood: congruent mood Affect: normal affect Exam Psych Mental Status: mental status grossly normal Speech and Movement: speech and movement normal Mood: congruent mood Affect: normal affect DS: Data Vitals/I&O Vitals and I&O: Vital Signs Temperature 36 C L 04/30/20 23:45 Temperature Source Tympanic 04/30/20 23:45 Pulse 50 L 04/30/20 23:45 Pulse Rhythm Regular 05/01/20 07:35 Pulse 61 04/29/20 18:10 Respiratory Rate 16 04/30/20 23:45 Respiratory Effort Non-Labored 05/01/20 07:35 Respiratory Depth Normal 05/01/20 07:35 Respiratory Pattern Normal 04/30/20 23:45 Blood Pressure 109/61 04/30/20 23:45 Blood Pressure Mean 92 04/29/20 18:01 Blood Pressure Position Supine 04/29/20 15:55 Pulse Oximetry 96 04/30/20 23:45 Oxygen Delivery Method Room Air 04/30/20 23:45 Oxygen Flow Rate 0 04/30/20 23:45 Pain Level 0 04/30/20 23:45 Comment 04/30/20 15:15 Intake & Output 04/30/20 04/30/20 05/01/20 11:59 23:59 11:59 Intake Total 2891.667 / 3777.084 835.417 / 3777.084 900 / 900 Output Total 350 / 1475 1125 / 1475 750 / 750 Balance 2541.667 / 2302.084 -289.583 / 2302.084 150 / 150 Intake: IV 2891.667 / 3477.084 535.417 / 3477.084 100 / 100 Oral 300 / 300 800 / 800 Output: Urine 350 / 1475 1125 / 1475 750 / 750 Other: Urine Color Yellow Yellow Urine Appearance Clear Clear Urine Odor Normal Normal Comment Per pt. report, void x1 in the toilet. Void x1 in the toilet. Stool Occult Blood Negative Stool Size Small Stool Characteristics Liquid Brown Voiding Methods Toilet Toilet Data Completed and Pending Labs on day of discharge: Labs from last 24 hours 04/30/20 15:47 Stl C.difficile Tox PCR Negative [facility] Medical History (Updated 05/01/20 @ 11:40 by Olena Argueta DO) Anxiety associated with depression Arthritis of right knee Cataract, bilateral Chronic low back pain Common migraine COPD (chronic obstructive pulmonary disease) Cough Degenerative joint disease Foot fracture GERD (gastroesophageal reflux disease) Headache Heart murmur, systolic Low back pain Migraine headache without aura Mitral valve regurgitation Nuclear sclerotic cataract of left eye Nuclear sclerotic cataract of right eye Osteoarthritis of both knees Other specified anxiety disorders Posterior subcapsular age-related cataract, right eye Puncture wound Restless leg syndrome Tobacco dependence 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) Vitamin D deficiency Surgical History (Updated 04/29/20 @ 22:21 by Olena Argueta DO) Status post cataract extraction and insertion of intraocular lens of right eye (03/01/18) Family History Maternal Grandfather Migraine Daughter Migraine Brother Migraine Sister Migraine Social History Smoking/Tobacco Use Status: Current every day Tobacco Type: cigarettes Smoking risk assessment performed?: Yes Alcohol Intake: never Drug use: Never Substance use type: does not use Current gender identity: female What is your relationship status?: Panel score (0-1 are the most socially isolated patients): 1 Do you feel safe at home: No Do you feel safe in your relationship?: Yes
--- NOTE | 2020-05-01 13:23 | W.PM.PROGNOT ---
Date of Service Date of service: 05/01/20 Time of Service: 13:23 Assessment and Plan Assessment and plan (1) Diverticulitis of intestine with abscess without bleeding: Status: Acute Assessment and plan: d/c home see d/c summary rx augmentin adn probiotic low fiber diet for 2 wks f/u in clinic on (2) COPD (chronic obstructive pulmonary disease): Status: Chronic (3) GERD (gastroesophageal reflux disease): Status: Chronic (4) Smoker: Status: Acute Subjective Subjective Interval history since last seen: Pt is doing well. no headaches. No CP or SOB. no productive cough. no dysuria. no leg pain or swelling. x3 loose?stools, but still formed. no blood. no fever/chills. no abdominal pain. tolerating soft diet. Exam Narrative Exam Narrative: PHYSICAL EXAM GENERAL APPEARANCE: Alert, healthy appearance, oriented, in no acute distress. HYDRATION: Well hydrated HEAD, EYES, EARS, NECK, AND THROAT: Head is normocephalic, pupils equal, round, reactive to light and accommodation, ocular movement intact, sclera clear no jaundice. Dentition intact. no thrush LUNGS: normal respiration, clear to auscultation HEART: Regular rate and rhythm, EXTREMITY: No edema or cyanosis ABDOMEN: non tender to palpation, no masses or distention, no hernias. Normal bowel sounds NEURO: no focal neuro deficits. Objective Last Vital Signs Temp 36 C L 04/30/20 23:45 Pulse 50 L 04/30/20 23:45 Resp 16 04/30/20 23:45 BP 109/61 04/30/20 23:45 Pulse Ox 96 04/30/20 23:45 Laboratory Results - last 24 hr 04/30/20 15:47 Stl C.difficile Tox PCR Negative
--- NOTE | 2020-05-01 17:54 | PDOC.CMDIS ---
- If Service Date Differs Date of service: 05/01/20 Time of Service: 17:54 LACE Index Scoring Tool - Questions: Length of Stay (in days): 3 Acuity (Admit via E.D.?): Yes E.D. Visits: 1 - Answers: Total Score: 7 Risk of Readmission: Low Risk Care Management Discharge Reason for Hospitalization: Diverticulitis with abscess Discharge Plan: Khalida will return home with no additional services at this time. She will be driven home via private vehicle by her . She will follow up with her surgeon, PCP, and discharge plan of care. She is happy to be going home. Patient/Family Education Needs: Review discharge instructions regarding activity levels and medications, discussion of self care needs including ask me three.
== END 2020-05-01 15:15 | disposition home or self-care (01) | DRG 392 ==
LOC: ER 18:34 → MS 04-30 08:29
PROVIDERS: Surgery; Admitting Provider Surgery; Emergency Provider Student in an Organized Health Care Education/Training Program; PCP Nurse Practitioner Family; Visit Provider Surgery
DX: K57.20 Diverticulitis of large intestine with perforation and abscess without bleeding (principal); F17.210 Nicotine dependence, cigarettes, uncomplicated; J44.9 Chronic obstructive pulmonary disease, unspecified; F41.8 Other specified anxiety disorders; G89.29 Other chronic pain; M54.5 Low back pain; G43.009 Migraine without aura, not intractable, without status migrainosus; M19.09 Primary osteoarthritis, other specified site; K21.9 Gastro-esophageal reflux disease without esophagitis; I34.0 Nonrheumatic mitral (valve) insufficiency; G25.81 Restless legs syndrome; E55.9 Vitamin D deficiency, unspecified; I69.398 Other sequelae of cerebral infarction; H53.8 Other visual disturbances
CPT/HCPCS: 36415; 80053; 87493; 96361; 96365; 96366; 96367; 99221; 99231; 99232; 99238; 99285; J1650; U0003; 83605; 83735; 85025; 86140; 99284; J2543; J3480

== ENCOUNTER 2020-04-29 22:29 | Outpatient (CLI) | payer MEDICAID, SELFPAY ==
--- NOTE | 2020-04-29 12:00 | DI.CT_ITS ---
EXAM: CT ABDOMEN PELVIS W CLINICAL HISTORY: LT ABD PAIN, LOWER QUAD R10.32. TECHNIQUE: Imaging Protocol: Axial computed tomography images with coronal and sagittal reformatted images were created and reviewed CONTRAST MATERIAL: Intravenous: Omnipaque 100cc Oral: Yes COMPARISON: CT ABD PELVIS WITH CONTRAST from 05/28/2015 FINDINGS: VISUALIZED LUNG BASES: No nodules nor pleural effusions evident. ABDOMEN: There is no ascites. LIVER: There are no obvious focal hepatic lesions evident . GALLBLADDER/BILIARY: The gallbladder surgically absent. CBD diameter is upper normal. PANCREAS: No evidence of pancreatic mass nor dilatation of the pancreatic duct. SPLEEN: Spleen is not enlarged. There is a benign appearing 9 x 6 millimeter finding in the spleen i s probably hemangioma. Splenic and portal veins are patent. ADRENALS: There are no significant adrenal masses. KIDNEYS:No cysts evident. No solid renal masses. No calculi nor hydronephrosis.. ABDOMINAL AORTA: Calcified. Upper normal diameter. No para-aortic adenopathy. ABDOMINAL WALL/GI: No evidence of significant anterior abdominal wall hernia. No bowel obstruction. PELVIS: GI: No evidence of appendicitis.Sigmoid diverticulosis. There is abnormal thickening of the lateral wall of the sigmoid in the lower pelvis which is probably sequela of diverticulitis-intramural absces s (series 4/image 62, this measuring approximately 2 by 0.9 cm. There is no free fluid. LYMPH NODES: There is no intrapelvic nor inguinal adenopathy. REPRODUCTIVE: Uterus normal size. No ovarian masses URINARY BLADDER: Unremarkable. No intraluminal gas to suggest fistulous communication. OSSEOUS: No significant osseous lesions. IMPRESSION: 1. Main findings here are in the sigmoid. There is extensive sigmoid diverticulosis. There also roverto ears to be abnormal focal thickening of the lateral sigmoid wall consistent with an intramural absces s, most probably sequelae of recent diverticulitis. This measures approximately 2 x 1 cm. 2. No free fluid. No CT evidence of fistulous communication to the urinary bladder and no evidence o f hepatic abscess. 3. 4. RADIATION DOSE DELIVERED: 644.95mGy.cm Total DLP DATA REPOSITORY: All CT scans at this facility are submitted to the National Radiology Data Registry (NRDR) Dose Index Registry (DIR) with the [employer] (ACR). RADIATION OPTIMIZATION: All CT scans at this facility use at least one of these dose optimization te chniques: automated exposure control; mA and/or kV adjustment per patient size (includes targeted exa ms where dose is matched to clinical indication); or iterative reconstruction.
== END 2020-04-29 22:49 ==
PROVIDERS: PCP Nurse Practitioner Family; Visit Provider Nurse Practitioner Family
DX: K57.30 Diverticulosis of large intestine without perforation or abscess without bleeding (principal)
CPT/HCPCS: 74177

== ENCOUNTER 2020-05-14 02:43 | Outpatient (CLI) | payer MEDICAID, SELFPAY ==
--- NOTE | 2020-05-14 | DI.MAMMO_ITS ---
EXAM: MAMMO SCREENING CLINICAL HISTORY: SCREENING, Z12.39 TECHNIQUE: Mammograms were interpreted according to the usual protocol including computer analysis w Gient CAD system, tomosynthesis and C-view imaging. COMPARISON: 2010 through 2019 FINDINGS: The breasts are composed of heterogeneously dense fibroglandular densities, Breast Density category C . No suspicious masses or suspicious microcalcifications are seen. Mild post biopsy scarring is again noted in the superior left breast. There are mild vascular calcifications. No skin thickening or abnormal axillary lymph nodes are seen. There has been no significant change from prior exams. IMPRESSION: BI-RADS Cat 2 - Benign Findings Yearly screening mammography is recommended. Breast Density Category C, heterogeneously Dense. The mammogram demonstrates the patient's breast tissue is dense. Dense breast tissue is very common a nd is not abnormal but dense breast tissue can make it harder to find cancer on a mammogram. Also, de nse breast tissue may increase breast cancer risk. This information about the result of the mammogram report was provided to the patient to raise their awareness. Use this report when you speak with the patient about their risks for breast cancer, which includes their family history. At that time, you may recommend additional screening tests (Ultrasound or MRI) as they might be useful based on their r isk. A negative radiographic report should not delay biopsy if a dominant or clinically suspicious mass is present. Up to ten percent of cancers are not identified on mammography. A negative report may reinforce clinical impression. Adenosis and dense breasts may obscure an underlying neoplasm. False positive reports average 6 to 10%.
== END 2020-05-14 02:44 ==
LOC: DI 02:43
PROVIDERS: PCP Nurse Practitioner Family; Visit Provider Nurse Practitioner Family
DX: Z12.31 Encounter for screening mammogram for malignant neoplasm of breast (principal)
CPT/HCPCS: 77063; 77067

== ENCOUNTER 2020-05-25 01:26 | Outpatient (CLI) | payer MEDICAID, SELFPAY ==
--- NOTE | 2020-05-25 07:15 | DI.MRI_ITS ---
EXAM: MR LOWER JOINT RT WO CLINICAL HISTORY: HIP ABDUCTOR TENDONITIS, PAIN, M76.899,M76.31. TECHNIQUE: Multiplanar multisequence MRI was performed. COMPARISON: CR XR HIP RT COMPLETE AP PELVIS from 10/27/2019 CR XR HIP RT COMPLETE AP PELVIS from 10/27/2019 FINDINGS: The marrow signal is normal. There is no joint effusion or bursal collection. Muscle signal is norm al. There is no significant muscle atrophy. No gross labral defects are seen. No tendon abnormalit y is identified. sigmoid diverticulosis is incidentally noted. IMPRESSION: Negative MRI of the pelvis and right hip. DATA REPOSITORY:
== END 2020-05-25 01:27 ==
PROVIDERS: PCP Nurse Practitioner Family; Visit Provider Student in an Organized Health Care Education/Training Program
DX: M76.31 Iliotibial band syndrome, right leg; M76.891 Other specified enthesopathies of right lower limb, excluding foot
CPT/HCPCS: 73721

== ENCOUNTER 2020-05-27 10:07 | Emergency (ER) | payer MEDICAID, SELFPAY ==
[2020-05-27 10:11] VITALS: BP 123/74; PULSE 85; RESP 18; TEMP 36.5; O2SAT 96
--- NOTE | 2020-05-27 10:29 | ED.GENADUL_ITS ---
Discharge Plan Disposition Patient Disposition: HOME Condition: Stable Discharge Details Clinical Impression: Abdominal pain, GERD (gastroesophageal reflux disease) Primary Care Provider: Ricki Lopez ED Provider: Lashaun Clark Home Meds and New Rx's Prescriptions: Continued celecoxib [Celebrex] 100 mg capsule 100 mg PO BID Qty: 60 RF: 2 sucralfate [Carafate] 1 gram tablet 1 g PO QACHS Qty: 120 RF: 12 carbidopa-levodopa [Sinemet] 25-100 mg tablet 1 tab PO QHS RF: 0 Bio-K plus 50 billion cell capsule,delayed release(DR/EC) 1 cap PO DAILY Qty: 30 RF: 0 cholecalciferol (vitamin D3) [Vitamin D3] 1,000 UNIT capsule 1 tab PO DAILY RF: 0 No Action lansoprazole [Prevacid] 30 mg capsule,delayed release(DR/EC) 30 mg PO DAILY Qty: 30 RF: 12 Discharge Instructions Instructions: GERD (Gastroesophageal Reflux Disease) (ED), Abdominal Pain (ED) Additional Instructions: Go directly to the general surgery office to see Dr. Argueta now. She would like to do an upper endoscopy tomorrow. Return immediately to the emergency department if you develop any worsening or new concerning symptoms. Discharge Data Discharge Date/Time-TO BE ENTERED AT DEPARTURE: 05/27/20 15:24 Discharge Physician: Lashaun Clark Medical Decision Making 64-year-old female with a history of COPD, chronic smoker, GERD, diverticulitis and recent admission for intramural abscess on abdominal CT presents for left lower quadrant abdominal pain, vomiting and diarrhea for the past 2 days. She also admits to strange sensation with urinating but denies any dysuria, hematuria or frequency. She appears nontoxic. Her vitals within normal limits. Her main area of tenderness is in the epigastrium which she states is chronic. Her left lower quadrant is minimally tender, and her abdomen is soft. Differential diagnosis includes diverticulitis, return of intramural abscess, g astroenteritis, UTI, pyelonephritis. Will place an IV, bolus IV fluids, screening labs, urinalysis. Case discussed with Dr. Argueta who would like CT abdomen pelvis with IV and oral contrast. We will also give IV Tylenol for pain relief. Labs and imaging reviewed and unremarkable. Normal WBC count. K 3.3, will recommend diet supplementation. UA negative for infection. CT negative for acute findings and previously noted intramural wall abscess may have actually be ovary on previous CT. Case d/w Dr. Argueta who is recommending a dose of IV protonix and discharge and for pt to go directly to the surgey office now with plan for outpatient EGD tomorrow. Pt reassessed and she is feeling better and agreeable with plan. Rapid pre- procedure COVID test obtained prior to d/c. Pt's to drive her to surgery office. Medical Records Medical records reviewed: Yes I reviewed the patient's medical records. Imaging Data Radiologic Study: Radiologist's impression: CT ABDOMEN PELVIS W CLINICAL HISTORY: LLQ abd pain, h/o diverticulitis. TECHNIQUE: Imaging Protocol: Axial computed tomography images with coronal and sagittal reformatted images were created and reviewed CONTRAST MATERIAL: Intravenous: Omnipaque 100cc Oral: Yes COMPARISON: CT CT ABDOMEN PELVIS W from 04/29/2020 FINDINGS: VISUALIZED LUNG BASES: No nodules nor pleural effusions evident. ABDOMEN: There is no ascites. LIVER: There are no obvious focal hepatic lesions evident . GALLBLADDER/BILIARY: The gallbladder is again noted be surgically absent CBD is not dilated. PANCREAS: No evidence of pancreatic mass nor dilatation of the pancreatic duct. SPLEEN: Spleen is not enlarged. Splenic granuloma noted. Splenic and portal veins are patent. ADRENALS: There are no significant adrenal masses. KIDNEYS:No cysts evident. No solid renal masses. No calculi nor hydronephrosis.. ABDOMINAL AORTA: Abdominal aorta is not enlarged. LYMPH NODES:There is no retroperitineal nor paraaortic adenopathy. ABDOMINAL WALL/GI: No evidence of significant anterior abdominal wall hernia. No bowel obstruction. PELVIS: GI: No evidence of appendicitis.Sigmoid diverticuli again noted. The previously described finding on the lateral wall of the sigmoid appears unchanged in size but on today's study has more the appearance of the left ovary than an actual sigmoid abscess. LYMPH NODES: There is no intrapelvic nor inguinal adenopathy. REPRODUCTIVE: Uterus size upper normal. No right adnexal findings. Left adnexal finding as described above which is probably ovary containing a 5 millimeter cyst therein. URINARY BLADDER: No calculi nor obvious masses evident OSSEOUS: Mild degenerative anterolisthesis of L4 upon L5. Chronic disc space narrowing L5-S1 level. No lytic osseous lesions identified. IMPRESSION: 1. Compared to the prior CT scan of 04/29/2020 there is again noted sigmoid diverticulosis. There is presently no obvious diverticulitis. Finding adjacent to the lateral wall of the sigmoid on today's study has the appearance of probably being the left ovary, more so than actual mural abscess. There is no evidence of free fluid. No free air. No air-gas in the portal venous system. No evidence of a hepatic abscess. 2. The appendix appears unremarkable. 3. There are no calculi in the ureters nor in the urinary bladder. No hydronephrosis. Lab Data Lab results reviewed: Yes I reviewed the patient's lab results. Labs: Laboratory Tests Range/Units 05/27/20 05/27/20 05/27/20 10:43 10:43 10:43 WBC (4.4-10.8) 10^3/uL 5.90 RBC (3.93-5.22) 10^6/uL 4.24 Hgb (11.2-15.7) g/dL 13.8 Hct (36.0-46.0) % 39.2 MCV (80-95) fL 92.5 MCH (27.0-33.0) pg 32.5 MCHC (32.0-36.0) % 35.2 RDW (11.7-14.6) % 11.3 L Plt Count (130-400) 10^3/uL 269 MPV (8.0-11.0) fL 9.7 Immature Gran % 0.3 Neutrophils % 67.1 Lymphocytes % 21.0 Monocytes % 10.3 Eosinophils % 1.0 Basophils % 0.3 Nucleated RBC % % 0 Absolute Neutrophils (1.2-6.7) 10^3/uL 3.95 Absolute Lymphocytes (1.2-3.4) 10^3/uL 1.24 Absolute Monocytes (0.1-0.8) 10^3/uL 0.61 Absolute Eosinophils (0.0-0.7) 10^3/uL 0.06 Absolute Basophils (0.0-0.2) 10^3/uL 0.02 Sodium (136-145) mmol/L 140 Potassium (3.5-5.1) mmol/L 3.3 L Chloride (98-107) mmol/L 104 Carbon Dioxide (21.0-32.0) mmol/L 26.4 Anion Gap (3-11) mmol/L 9.6 BUN (7-18) mg/dL 16 Creatinine (0.55-1.02) mg/dL 0.8 Estimated GFR/1.73 m2 (mL/min/1.73m2) >= 60.00 Glucose (74-106) mg/dL 94 Calcium (8.5-10.1) mg/dL 9.2 Total Bilirubin (0.2-1.0) mg/dL 0.8 AST (15-37) U/L 27 ALT (14-59) U/L 34 Alkaline Phosphatase (46-116) U/L 138 H Total Protein (6.4-8.2) g/dL 7.3 Albumin (3.4-5.0) g/dL 3.8 Lipase (73-393) U/L 74 Urine Color (Yellow) Urine Clarity (Clear) Urine pH (5-8) Ur Specific [place] (1.005-1.025) Urine Protein (Negative) mg/dL Urine Ketones (Negative) mg/dL Urine Blood (Negative) Urine Nitrite (Negative) Urine Bilirubin (Negative) Urine Urobilinogen (Up TO 0.2) EU/dL Ur Leukocyte Esterase (Negative) Urine RBC (0-2) HPF Urine WBC (0-5) HPF Ur Epithelial Cells (Negative) HPF Urine Crystals (Negative) HPF Urine Bacteria (Negative) HPF Urine Casts (Negative) LPF Urine Mucus (Negative) Ur Culture Indicated? Urine Glucose (Negative) mg/dL COVID-19 Source SARS-CoV-2 (PCR) (Negative) Range/Units 05/27/20 05/27/20 11:05 15:27 WBC (4.4-10.8) 10^3/uL RBC (3.93-5.22) 10^6/uL Hgb (11.2-15.7) g/dL Hct (36.0-46.0) % MCV (80-95) fL MCH (27.0-33.0) pg MCHC (32.0-36.0) % RDW (11.7-14.6) % Plt Count (130-400) 10^3/uL MPV (8.0-11.0) fL Immature Gran % Neutrophils % Lymphocytes % Monocytes % Eosinophils % Basophils % Nucleated RBC % % Absolute Neutrophils (1.2-6.7) 10^3/uL Absolute Lymphocytes (1.2-3.4) 10^3/uL Absolute Monocytes (0.1-0.8) 10^3/uL Absolute Eosinophils (0.0-0.7) 10^3/uL Absolute Basophils (0.0-0.2) 10^3/uL Sodium (136-145) mmol/L Potassium (3.5-5.1) mmol/L Chloride (98-107) mmol/L Carbon Dioxide (21.0-32.0) mmol/L Anion Gap (3-11) mmol/L BUN (7-18) mg/dL Creatinine (0.55-1.02) mg/dL Estimated GFR/1.73 m2 (mL/min/1.73m2) Glucose (74-106) mg/dL Calcium (8.5-10.1) mg/dL Total Bilirubin (0.2-1.0) mg/dL AST (15-37) U/L ALT (14-59) U/L Alkaline Phosphatase (46-116) U/L Total Protein (6.4-8.2) g/dL Albumin (3.4-5.0) g/dL Lipase (73-393) U/L Urine Color (Yellow) Yellow Urine Clarity (Clear) Sl cloudy Urine pH (5-8) 5.5 Ur Specific [place] (1.005-1.025) 1.025 Urine Protein (Negative) mg/dL Negative Urine Ketones (Negative) mg/dL Trace H Urine Blood (Negative) Moderate H Urine Nitrite (Negative) Negative Urine Bilirubin (Negative) Negative Urine Urobilinogen (Up TO 0.2) EU/dL 0.2 Ur Leukocyte Esterase (Negative) Negative Urine RBC (0-2) HPF 5-10 H Urine WBC (0-5) HPF 0-2 Ur Epithelial Cells (Negative) HPF Rare Urine Crystals (Negative) HPF Mod calcium oxalate Urine Bacteria (Negative) HPF Rare Urine Casts (Negative) LPF Negative Urine Mucus (Negative) Trace Ur Culture Indicated? No Urine Glucose (Negative) mg/dL Negative COVID-19 Source Nasopharyx SARS-CoV-2 (PCR) (Negative) Negative HPI General Mode of arrival: ambulatory . Date/Time Provider Initiated Documentation: 05/27/20 10:19 . Limitations to Documentation: no limitations . Information obtained by: patient . HPI Narrative: Patient is a 64-year-old female with a history of diverticulitis and recent hospital admission for intramural abscess treated with IV antibiotics presents with left lower quadrant abdominal pain, vomiting and diarrhea for the past 2 days. Patient states the pain is constant and sharp currently 5/10. She was admitted here last month for an intramural abscess noted on abdominal CT and treated with IV antibiotics. She states she had no pain at that time. She states her symptoms currently feel like her previous history of diverticulitis. She states she has been vomiting and had diarrhea multiple times daily. She states the vomiting is mainly food or bile. She states the diarrhea is loose and brown. She also admits to a strange urinary sensation with urinating symptoms her recent admission. She denies any dysuria, hematuria or frequency. She denies any known fever. Related Data Home Medications Medication Instructions Recorded Confirmed cholecalciferol (vitamin D3) 1 tab PO DAILY 02/04/14 05/28/20 [Vitamin D3] celecoxib 100 mg capsule 100 mg PO BID #60 cap 02/04/18 05/28/20 carbidopa 25 mg-levodopa 100 mg 1 tab PO QHS tab 10/22/18 05/28/20 tablet L. acidophilus,casei,rhamnosus 50 1 cap PO DAILY #30 cap 05/01/20 05/28/20 billion cell capsule,delayed release sucralfate 1 gram tablet 1 g PO QACHS #120 tab 05/06/20 05/28/20 lansoprazole [Prevacid] 30 mg PO DAILY #30 cap 05/28/20 Previous Rx's Medication Instructions Recorded celecoxib 100 mg capsule 100 mg PO BID #60 cap 02/04/18 L. acidophilus,casei,rhamnosus 50 1 cap PO DAILY #30 cap 05/01/20 billion cell capsule,delayed release sucralfate 1 gram tablet 1 g PO QACHS #120 tab 05/06/20 lansoprazole [Prevacid] 30 mg PO DAILY #30 cap 05/28/20 Allergies Allergy/AdvReac Type Severity Reaction Status Date / Time No Known Allergies Allergy Verified 05/27/20 15:38 General Stated Complaint: Abd Prob MIRLANDE: 3 Review of Systems All systems reviewed & are unremarkable except as noted in HPI and below Constitutional Constitutional: Reports as per HPI, Denies chills and Denies fever(s) Eyes Eyes: Denies blurry vision ENT Ears, Nose, Mouth, and Throat: Denies dizziness, Denies sore throat and Denies throat swelling Cardiovascular Cardiovascular: Denies chest pain and Denies dyspnea Respiratory Respiratory: Denies cough and Denies dyspnea Gastrointestinal Gastrointestinal: Reports abdominal pain, Reports diarrhea and Reports vomiting Genitourinary Genitourinary: Denies hematuria and Denies dysuria Musculoskeletal Musculoskeletal: Denies back pain and Denies numbness Integumentary/Breasts Skin/Breast: Denies lesions and Denies rash Neurologic Neurologic: Denies dizziness, Denies localized weakness and Denies numbness Allergic/Immunologic Allergic/Immunologic: Denies throat swelling PFSH Medical History Anxiety associated with depression Arthritis of right knee Cataract, bilateral Chronic low back pain Common migraine COPD (chronic obstructive pulmonary disease) Cough Degenerative joint disease Foot fracture GERD (gastroesophageal reflux disease) Headache Heart murmur, systolic Low back pain Migraine headache without aura Mitral valve regurgitation Nuclear sclerotic cataract of left eye Nuclear sclerotic cataract of right eye Osteoarthritis of both knees Other specified anxiety disorders Posterior subcapsular age-related cataract, right eye Puncture wound Restless leg syndrome Tobacco dependence 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) Vitamin D deficiency Surgical History Status post cataract extraction and insertion of intraocular lens of right eye (03/01/18) Family History Maternal Grandfather Migraine Daughter Migraine Brother Migraine Sister Migraine Social History Smoking/Tobacco Use Status: Current every day Tobacco Type: cigarettes Smoking risk assessment performed?: Yes Alcohol Intake: never Drug use: Never Substance use type: does not use Current gender identity: female What is your relationship status?: Panel score (0-1 are the most socially isolated patients): 1 Do you feel safe at home: Yes Do you feel safe in your relationship?: Yes Exam Const General: cooperative and no acute distress Orientation: alert, awake and oriented x3 HENMT Head: normal to inspection Face and sinus: normal facial exam Eyes General: appearance normal, both eyes and all related structures EOM: EOM intact bilaterally Neck Neck: normal visual inspection and No submandibular swelling Lymphatic: no lymphadenopathy noted Chest Chest: normal inspection of the chest and no tenderness Resp Effort & Inspection: normal respiratory effort and able to speak in complete sentences Auscultation: clear to auscultation bilaterally Cardio Rate: regular rate Rhythm: regular rhythm GI Inspection: normal to inspection Palpation: soft, not firm, not rigid and tender in the epigastrum (most severe) and in the LLQ (mild to moderate) Auscultation: hypoactive bowel sounds Skin General skin exam: no rashes or lesions noted Neuro General: patient alert, patient awake and patient oriented x3 Cognition: normal cognition Speech: speech normal Motor: muscle tone normal throughout Sensory Exam: no sensory deficits noted Extrem General: normal to inspection, full ROM, capillary refill normal, no calf tenderness bilaterally and no edema Psych Appearance: grossly normal Mental Status: mental status grossly normal Speech and Movement: speech and movement normal Affect: normal affect Course Vital Signs Vital signs: Vital Signs Temperature 97.7 F 05/27/20 10:11 Pulse 85 05/27/20 10:11 Respiratory Rate 18 05/27/20 10:11 Blood Pressure 123/74 05/27/20 10:11 Pulse Oximetry 96 05/27/20 10:11 Temperature 97.7 F 05/27/20 10:11 Temperature Source Temporal Artery Scan 05/27/20 10:11 Pulse 85 05/27/20 10:11 Respiratory Rate 18 05/27/20 10:11 Respiratory Effort Non-Labored 05/27/20 10:17 Blood Pressure 123/74 05/27/20 10:11 Blood Pressure Position Sitting 05/27/20 10:11 Pulse Oximetry 96 05/27/20 10:11 Oxygen Delivery Method Room Air 05/27/20 10:11 Oxygen Flow Rate 0 05/27/20 10:11 Pain Level 8 05/27/20 10:11
[2020-05-27 10:55] LABS: Abs Immature Grans 0.02 10^3/uL (0.0-0.06); Absolute Basophil Count 0.02 10^3/uL (0.0-0.2); Absolute Eosinophil Count 0.06 10^3/uL (0.0-0.7); Absolute Lymphocyte Count 1.24 10^3/uL (1.2-3.4); Absolute Monocyte Count 0.61 10^3/uL (0.1-0.8); Absolute Neutrophil Count 3.95 10^3/uL (1.2-6.7); Basophils % 0.3; HCT 39.2 % (36.0-46.0); HGB 13.8 g/dL (11.2-15.7); Immature Grans % 0.3; MCH 32.5 pg (27.0-33.0); MCHC 35.2 % (32.0-36.0); MCV 92.5 fL (80-95); MPV 9.7 fL (8.0-11.0); Monocytes % 10.3; Neutrophils % 67.1; Nucleated RBC 0 %; Platelet Count 269 10^3/uL (130-400); RBC 4.24 10^6/uL (3.93-5.22); RDW 11.3 % (11.7-14.6); RDW-SD 38.5 fL
[2020-05-27 11:03] LABS: Lipase 74 U/L (73-393)
[2020-05-27 11:07] LABS: ALT 34 U/L (14-59); AST 27 U/L (15-37); Albumin 3.8 g/dL (3.4-5.0); Alkaline Phosphatase 138 U/L (46-116); Anion Gap 9.6 mmol/L (3-11); BUN 16 mg/dL (7-18); Bilirubin, Total 0.8 mg/dL (0.2-1.0); CO2 26.4 mmol/L (21.0-32.0); CREATININE 0.8 mg/dL (0.55-1.02); Calcium 9.2 mg/dL (8.5-10.1); Chloride 104 mmol/L (98-107); Glucose 94 mg/dL (74-106); Potassium 3.3 mmol/L (3.5-5.1); Sodium 140 mmol/L (136-145); Total Protein 7.3 g/dL (6.4-8.2)
[2020-05-27 11:16] LABS: Bilirubin Negative (Negative); Blood Moderate (Negative); Clarity Sl Cloudy (Clear); Glucose Negative (Negative); Ketones Trace mg/dL (Negative); Leukocyte Esterase Negative (Negative); Nitrite Negative (Negative); Specific Gravity 1.025 (1.005-1.025); Urobilinogen 0.2 EU/dL (Up TO 0.2); pH 5.5 (5-8)
[2020-05-27 11:26] LABS: Bacteria Rare HPF (Negative); Epithelial Cells Rare HPF (Negative); WBC 0-2 HPF (0-5)
[2020-05-27 11:27] LABS: C & S Indicated? No; Casts Negative LPF (Negative); Crystals Mod Calcium Oxalate HPF (Negative); Mucus Trace (Negative)
[2020-05-27] MEDS: ACETAMINOPHEN 1,000 MG/100 ML BTL 400 MG IVPB (11:41)
[2020-05-27 12:12] VITALS: BP 121/56; PULSE 63; RESP 18; TEMP 36.6; O2SAT 99
--- NOTE | 2020-05-27 13:40 | DI.CT_ITS ---
EXAM: CT ABDOMEN PELVIS W CLINICAL HISTORY: LLQ abd pain, h/o diverticulitis. TECHNIQUE: Imaging Protocol: Axial computed tomography images with coronal and sagittal reformatted images were created and reviewed CONTRAST MATERIAL: Intravenous: Omnipaque 100cc Oral: Yes COMPARISON: CT CT ABDOMEN PELVIS W from 04/29/2020 FINDINGS: VISUALIZED LUNG BASES: No nodules nor pleural effusions evident. ABDOMEN: There is no ascites. LIVER: There are no obvious focal hepatic lesions evident . GALLBLADDER/BILIARY: The gallbladder is again noted be surgically absent CBD is not dilated. PANCREAS: No evidence of pancreatic mass nor dilatation of the pancreatic duct. SPLEEN: Spleen is not enlarged. Splenic granuloma noted. Splenic and portal veins are patent. ADRENALS: There are no significant adrenal masses. KIDNEYS:No cysts evident. No solid renal masses. No calculi nor hydronephrosis.. ABDOMINAL AORTA: Abdominal aorta is not enlarged. LYMPH NODES:There is no retroperitineal nor paraaortic adenopathy. ABDOMINAL WALL/GI: No evidence of significant anterior abdominal wall hernia. No bowel obstruction. PELVIS: GI: No evidence of appendicitis.Sigmoid diverticuli again noted. The previously described finding on the lateral wall of the sigmoid appears unchanged in size but on today's study has more the appearan ce of the left ovary than an actual sigmoid abscess. LYMPH NODES: There is no intrapelvic nor inguinal adenopathy. REPRODUCTIVE: Uterus size upper normal. No right adnexal findings. Left adnexal finding as describe d above which is probably ovary containing a 5 millimeter cyst therein. URINARY BLADDER: No calculi nor obvious masses evident OSSEOUS: Mild degenerative anterolisthesis of L4 upon L5. Chronic disc space narrowing L5-S1 level. No lytic osseous lesions identified. IMPRESSION: 1. Compared to the prior CT scan of 04/29/2020 there is again noted sigmoid diverticulosis. There is presently no obvious diverticulitis. Finding adjacent to the lateral wall of the sigmoid on today's study has the appearance of probably being the left ovary, more so than actual mural abscess. There is no evidence of free fluid. No free air. No air-gas in the portal venous system. No evidence of a hepatic abscess. 2. The appendix appears unremarkable. 3. There are no calculi in the ureters nor in the urinary bladder. No hydronephrosis 4. RADIATION DOSE DELIVERED: 693.4mGy.cm Total DLP DATA REPOSITORY: All CT scans at this facility are submitted to the National Radiology Data Registry (NRDR) Dose Index Registry (DIR) with the [employer] (ACR). RADIATION OPTIMIZATION: All CT scans at this facility use at least one of these dose optimization te chniques: automated exposure control; mA and/or kV adjustment per patient size (includes targeted exa ms where dose is matched to clinical indication); or iterative reconstruction.
[2020-05-27] MEDS: Omnipaque 350 MG/ML 100 ML BTL IJ (13:46)
[2020-05-27 13:59] VITALS: BP 130/72; PULSE 60; RESP 18; TEMP 37; O2SAT 96
--- NOTE | 2020-05-27 14:33 | NUR.NOTE ---
patient rounded on in DI-2. Patient made phone call to . Awaiting diagnostic results. Nursing Note:
[2020-05-27] MEDS: Pantoprazole 40 MG VIAL IVP (15:09)
[2020-05-27 18:17] LABS: COVID-19 PCR Negative (Negative)
== END 2020-05-27 15:24 | disposition home or self-care (01) ==
PROVIDERS: Emergency Provider Physician Assistant; PCP Nurse Practitioner Family
DX: R10.32 Left lower quadrant pain (principal); K21.9 Gastro-esophageal reflux disease without esophagitis; J44.9 Chronic obstructive pulmonary disease, unspecified; F17.210 Nicotine dependence, cigarettes, uncomplicated; Z20.822 Contact with and (suspected) exposure to COVID-19
CPT/HCPCS: 80053; 83690; 96365; 96375; 99285; 74177; 81003; 81015; 85025; J0131; J3490

== ENCOUNTER 2020-05-28 11:23 | Day surgery (SDC) | payer MEDICAID, SELFPAY ==
[2020-05-28 11:42] VITALS: BP 121/73; PULSE 68; RESP 20; TEMP 36.2; O2SAT 97
[2020-05-28] MEDS: Lactated Ringers 1,000 ML 80 ML IV (12:01)
--- NOTE | 2020-05-28 12:35 | STOM_PTH ---
PATIENT: Khalida Ellis LOC: [facility] U#:[id number] AGE/SX: 64/F ROOM: RE05/28/[address]: Olena Argueta : 1955 BED: DIS: 05/28/2020 SPEC #: [id number] RECD: 05/28/20 17:36 STATUS: NOEL RE #: [id number] HARRY: 05/28/20 12:[address]: Olena Argueta DEPT: Surgical Specimen RECD BY: Lisa Monsivais ENTERED: 05/28/20 17:38 SP TYPE: STOMACH OTHR DR: Ricki Lopez Tissues: 1 - BIOPSY BOWEL 2 - BIOPSY BOWEL 3 - STOMACH BIOPSY 4 - STOMACH BIOPSY 5 - ESOPHAGUS BIOPSY 6 - ESOPHAGUS BIOPSY Procedures: GROSS AND MICRO LEVEL 4 Comments: [id number]
[2020-05-28 13:20] VITALS: RESP 18
--- NOTE | 2020-05-28 13:27 | ENDO_ITS ---
Date of service: 05/28/20 Time of Service: 13:27 Endoscopy Report DATE OF PROCEDURE: 06/02/20 PRE-OP DIAGNOSIS: epigastric pain POST-OP DIAGNOSIS: other (erosive gastritis) SURGEON: Olena Argueta ANESTHESIA: GETA ESTIMATED BLOOD LOSS: 1 PATHOLOGY: other COMPLICATIONS: None DISPOSITION: same day PROCEDURE DESCRIPTION: After informed consent was obtained the patient was take to the procedure room and placed in a supine position. Monitors were applied and a time out was done. The patients name, date of , procedure type, allergies to medications and metal in their body was reviewed. A bite block was placed and the patient was sedated. Once sedated and comfortable the gastroscope was advanced through the oropharynx which was grossly normal into the esophagus. The proximal and mid-esophagus were nl. In the distal esophagus there was small hiatal hernia noted. There were no esophageal erosions diverticula or stricture. Or varices. The scope was advanced into the stomach and through the pylorus into the 3rd portion of the duodenum. The duodenum was noted to be mild gastritis in the proximal jejunum, duodenal bulb, antrum, greater curvature, GE junction, distal esophagus. All specimens are retrieved and no bleeding is noted.. Biopsies were done . The scope was retracted back into the stomach and biopsies were done to rule out H. pylori. There were no ulcers. There are 3 discrete areas of erythema at the antrum. There is a mild diffuse erythema into the entirety of the stomach. The stomach. The scope was retroflexed. The cardia and fundus were noted to be normal. There small a hiatal hernia noted. The scope was retracted back into the esophagus and biopsies were done of the GE junction to rule out Brooks's. The Z line was regular. The scope was removed and the patient was woken up and taken back to [facility] in stable condition.
--- NOTE | 2020-05-28 13:30 | W.PM.DSUDISC ---
Discharge Plan Disposition Patient Disposition: HOME Condition: Good Discharge Details Reason For Visit: EGD Attending Provider: Olena Argueta Primary Care Provider: Ricki Lopez Home Meds and New Rx's Prescriptions: New esomeprazole magnesium [Nexium] 40 mg capsule,delayed release(DR/EC) 40 mg PO DAILY Qty: 30 RF: 12 Continued celecoxib [Celebrex] 100 mg capsule 100 mg PO BID Qty: 60 RF: 2 sucralfate [Carafate] 1 gram tablet 1 g PO QACHS Qty: 120 RF: 12 carbidopa-levodopa [Sinemet] 25-100 mg tablet 1 tab PO QHS RF: 0 Bio-K plus 50 billion cell capsule,delayed release(DR/EC) 1 cap PO DAILY Qty: 30 RF: 0 cholecalciferol (vitamin D3) [Vitamin D3] 1,000 UNIT capsule 1 tab PO DAILY RF: 0 Discontinued lansoprazole [Prevacid] 30 mg capsule,delayed release(DR/EC) 30 mg PO DAILY Qty: 30 RF: 12 pantoprazole [Protonix] 40 mg tablet,delayed release (DR/EC) 40 mg PO DAILY Qty: 30 RF: 12 Discharge Instructions Instructions: Hiatal Hernia (GEN), Gastritis (GEN) Additional Instructions: Findings:gastritis/hiatal hernia Follow up:3 weeks w/ Dr. Argueta no asa/Nsaid's Continue with lifestyle modifications: no alcohol, tobacco products, Aspirin or NSAID's (ibuprofen, Motrin, Naprosyn, aleve, etc). Try to limits: soda pop/any carbonated beverages, caffeine (including tea & chocolate), and acidic foods, (tomatoes, citrus, onions, peppermints) spicy or fried/fatty foods. Do not lie down for 30 minutes after eating, and do not eat 2 hours prior to bedtime. Avoid wearing tight fitting clothing/ belts -stope protonix/prevacid -Nexium 40mg po daily- new medication Stop Smoking Please call if you develop: fevers >101.5 Nausea or Vomiting Abdominal pain that is not transient DAY SURGERY UNIT POST COLONOSCOPY INSTRUCTIONS 1. Because there will be medication in your system for the next 24 hours, you may feel a little sleepy. Your coordination will be affected. Therefore: a. Do not drive or operate dangerous equipment for 24 hours. b. Do not drink alcohol beverages for 24 hours (not even beer). c. Plan to go home and rest for the day. 2. Generally there are no restrictions on your activity after a day or so has gone by, but you may feel a bit fatigued for a few days. 3 After you arrive home you may have a light meal and return to a normal diet as you can tolerate it without feeling sick to your stomach. 4. After surgery, you may feel pain or discomfort. This should be only transient, but if it persists please contact your doctor. 5. If there are any questions regarding the findings of your procedure, please feel free to contact your doctor. 6. If you are unable to contact your doctor with a problem, contact the hospital at [phone]. 7. Continue all your regular medications unless directed otherwise. I understand the above instructions and have no questions. Signature of Patient or Responsible Adult Escort Date/Time Name of Responsible Adult Escort Signature of Nurse Date/Time Discharge Orders Discharge Orders: Discharge Order (Routine); Ordered 05/28/20 Ordered By: Olena Argueta DS: Diagnosis Discharge Diagnosis (1) Hiatal hernia: Status: Chronic (2) Gastritis: Status: Acute
== END 2020-05-28 14:00 | disposition home or self-care (01) ==
PROVIDERS: PCP Nurse Practitioner Family; Visit Provider Surgery
PROC: 0DJ68ZZ Inspection of Stomach, Via Natural or Artificial Opening Endoscopic (ICD-10-PCS; CPT 43235; principal; 2020-05-28 11:15)
DX: K44.9 Diaphragmatic hernia without obstruction or gangrene (principal); K29.70 Gastritis, unspecified, without bleeding
CPT/HCPCS: 43239; 88305

== ENCOUNTER 2020-06-09 14:22 | Outpatient (CLI) | payer MEDICAID, SELFPAY ==
--- NOTE | 2020-06-09 08:45 | DI.RAD_ITS ---
EXAM: XR HIP RT COMPLETE AP PELVIS CLINICAL HISTORY: F/U. TECHNIQUE: 2D digital imaging was performed. COMPARISON: CR XR HIP RT COMPLETE AP PELVIS from 10/27/2019 FINDINGS: BONES: No acute fracture is present. No bony destructive lesion is seen. JOINTS: No dislocation present. SOFT TISSUE: Normal. IMPRESSION: Unremarkable radiographs of the right hip. Unremarkable radiographs of the pelvis. DATA REPOSITORY: RADIATION DOSE DELIVERED:
== END 2020-06-09 14:23 | disposition home or self-care (01) ==
LOC: DIORS 14:22
PROVIDERS: PCP Nurse Practitioner Family; Referring Provider Nurse Practitioner Family; Visit Provider Student in an Organized Health Care Education/Training Program
DX: M70.61 Trochanteric bursitis, right hip (principal); M76.31 Iliotibial band syndrome, right leg
CPT/HCPCS: 73502

== ENCOUNTER 2020-06-22 04:07 | Outpatient (CLI) | payer MEDICAID, SELFPAY ==
--- NOTE | 2020-06-22 13:00 | NS.NUTBLAN_ITS ---
Khalida was referred for medical nutrition therapy for education on low acid meal plan. Khalida is dx with stomach ulcers and was recently hospitalized for diverticulosis. BMI wnl and stable. She has a hx of smoking 1 pack per day. She reports cutting out nicotine, caffiene and citrus/ tomato products and has had relief but is very confused about what she can and cannot eat. Session today included information on how to follow a low acid diet and meet 100% of macro and micro nutrients, encouraged use of citrucel or metamucil for added bulk. Also recommended MVI for seniors, increased intake of lean protein, non starchy vegetables, fruits and whole grains. Written material provided. No follow up planned at this time.
== END 2020-06-22 04:08 | disposition home or self-care (01) ==
LOC: DS 04:08
PROVIDERS: PCP Nurse Practitioner Family; Visit Provider Dietitian, Registered
DX: K57.30 Diverticulosis of large intestine without perforation or abscess without bleeding (principal); K21.9 Gastro-esophageal reflux disease without esophagitis; K25.9 Gastric ulcer, unspecified as acute or chronic, without hemorrhage or perforation; Z71.3 Dietary counseling and surveillance
CPT/HCPCS: 97802

== ENCOUNTER 2020-07-02 02:22 | Outpatient (CLI) | payer MEDICAID, SELFPAY ==
[2020-07-02 11:30] LABS: Source Nasal/Nares
[2020-07-02 16:48] LABS: COVID-19 PCR Negative (Negative)
== END 2020-07-02 02:23 | disposition home or self-care (01) ==
LOC: LBO 02:22
PROVIDERS: PCP Nurse Practitioner Family; Visit Provider Urology
DX: Z20.822 Contact with and (suspected) exposure to COVID-19 (principal)
CPT/HCPCS: 87635

== ENCOUNTER 2020-07-05 07:30 | Day surgery (SDC) | payer MEDICAID, SELFPAY ==
[2020-07-05 07:45] VITALS: BP 114/73; PULSE 52; RESP 16; TEMP 36.5; O2SAT 96
[2020-07-05] MEDS: Lactated Ringers 1,000 ML 80 ML IV (08:17)
--- NOTE | 2020-07-05 08:33 | HPE_ITS ---
Assessment and Plan Assessment and plan (1) Microscopic hematuria: Status: Acute Assessment and plan: For cystoscopy with possible TURBT History of Present Illness History of Present Illness Chief Complaint: Microscopic hematuria Narrative: Khalida is a 64-year-old female referred to urology by the general surgeons for lower pelvic discomfort and microscopic hematuria. Patient reports that she has never visibly seen blood in her urine and that has been very clear when she has looked at it. She notes that her pain in her abdominal lower pelvic area started last March. She states that when she voided she fell and altered sensation to her bladder and since that time has had 6 episodes that she can count where she has had these similar sensations. She does not have dysuria. She states when this happened she went to the [facility] clinic and was told on urinalysis that she had a urinary tract infection. However she states that there was no culture to actually confirm this. Plus patient notes that even with the use of the antibiotic she still felt this discomfort to her bladder. She was then seen by her PCP end of April of this year and it was noted for concern of diverticulitis. She was seen in the emergency room and then inpatient. She was placed on antibiotics and notes that this did nothing for her actual lower pelvic bladder sensation discomfort when voiding. Patient does note some unexplained weight loss. She has no skeletal pains. She has no abnormal bleeding or bruising. Review of Systems Narrative: No fevers or chills Cataracts. No dysphasia No diabetes or thyroid Quit smoking. No sputum production or hemoptysis No chest pain or palpitations Hx GERD, hiatal hernia and diverticulitis. No hepatitis, jaundice No seizures, strokes or peripheral neuropathy No bleeding disorders or anemia c/o arthralgia - due for hip replacement. No gout [facility] Medical History (Updated 07/05/20 @ 08:11 by Lui Ambrosio CRNA) Anxiety associated with depression Arthritis of right knee Cataract, bilateral Chronic low back pain Common migraine COPD (chronic obstructive pulmonary disease) Cough Degenerative joint disease Foot fracture GERD (gastroesophageal reflux disease) Headache Heart murmur, systolic Low back pain Microscopic hematuria Migraine headache without aura Mitral valve regurgitation Mild 2016 Echo Nuclear sclerotic cataract of left eye Nuclear sclerotic cataract of right eye JOSHUA on CPAP Osteoarthritis of both knees Other specified anxiety disorders Posterior subcapsular age-related cataract, right eye Puncture wound Restless leg syndrome Tobacco dependence 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) Vitamin D deficiency Surgical History History of cardiac catheterization History of carpal tunnel release History of cholecystectomy History of esophagogastroduodenoscopy (EGD) History of tubal ligation Status post cataract extraction and insertion of intraocular lens of right eye (03/01/18) Family History Maternal Grandfather Migraine Daughter Migraine Brother Migraine Sister Migraine Social History Smoking/Tobacco Use Status: Former Tobacco Use Quit Date: 06/21/20 Smoking risk assessment performed?: Yes Alcohol Intake: never Drug use: Never Substance use type: does not use Current gender identity: female What is your relationship status?: Panel score (0-1 are the most socially isolated patients): 1 Do you feel safe at home: Yes Do you feel safe in your relationship?: Yes Meds Home Medications and Allergies Allergies Allergy/AdvReac Type Severity Reaction Status Date / Time No Known Allergies Allergy Verified 06/17/20 09:32 Home Medications Medication Instructions Recorded Confirmed Type cholecalciferol (vitamin D3) 1 tab PO DAILY 02/04/14 07/05/20 History [Vitamin D3] celecoxib 100 mg capsule 100 mg PO BID #60 cap 02/04/18 07/05/20 Rx carbidopa 25 mg-levodopa 100 mg 1 tab PO QHS tab 10/22/18 07/05/20 History tablet L. acidophilus,casei,rhamnosus 50 1 cap PO DAILY #30 cap 05/01/20 07/05/20 Rx billion cell capsule,delayed release sucralfate 1 gram tablet 1 g PO QACHS #120 tab 05/06/20 07/05/20 Rx lansoprazole [Prevacid] 30 mg PO DAILY #30 cap 05/28/20 07/05/20 Rx Exam Const General: comfortable Neck Neck: supple Resp Effort & Inspection: normal respiratory effort Auscultation: clear to auscultation bilaterally Cardio Rate: regular rate Rhythm: regular rhythm GI Palpation: soft and no masses Neuro General: patient alert, patient awake and patient oriented x3 Results Last Vital Signs Temp 36.5 C 07/05/20 07:45 Pulse 52 L 07/05/20 07:45 Resp 16 07/05/20 07:45 BP 114/73 07/05/20 07:45 Pulse Ox 96 07/05/20 07:45 COVID-19 Screening Have you, or household traveled for leisure in last 14 days?: No Had IN PERSON contact w/suspected or confirmed C-19 person: No
[2020-07-05] MEDS: ceFAZolin 1 GM/50 ML BAG IVPB (08:55)
--- NOTE | 2020-07-05 09:16 | W.PM.OP ---
Date of service: 07/05/20 Time of Service: 09:16 Operative Note Operative Note DATE OF PROCEDURE: 07/05/20 PRE-OP DIAGNOSIS: Microscopic hematuria POST-OP DIAGNOSIS: same PROCEDURE: cystoscopy SURGEON: Stevo Stone ANESTHESIA TYPE: General:No Airway Refer to Anesthesia Record ESTIMATED BLOOD LOSS: 0 PATHOLOGY: none sent COMPLICATIONS: None Patient was transported to: same day Patient's condition: stable Implants: None Indications: This is a six 4-year-old woman who has a finding of microscopic hematuria as well as pelvic discomfort. She has had a normal CT scan with contrast that showed no renal or pelvic masses. She presents for cystoscopy to complete her hematuria work-up. Findings: No bladder tumor Procedure Description: Was brought to the operating room on 07/05/2020. After successful induction of general anesthesia without intubation, she was placed in the dorsal lithotomy position. Her genitalia was prepped and draped sterilely. She was given a dose of preoperative IV antibiotics. 2% Xylocaine jelly was instilled into the urethra to act as a local anesthetic. A 22 [place] cystoscope sheath was passed through the urethra into the bladder. The bladder was inspected using both a 30 and a 70 degree lens. Both ureteral orifices appeared normal in configuration and location. Clear urine was seen coming from each side. The remainder the bladder was smooth walled and the mucosa was only slightly hyperemic. No ulcerations were seen. No papillary or nodular lesions were seen. These findings were confirmed on reinspection of the bladder using a 70 degree lens. Based on today's examination, there is no significant uropathology identified. Our typical recommendation is a yearly urinalysis and a repeat work-up every 3 to 5 years if the hematuria persists. If her pelvic discomfort becomes bothersome enough, we can consider some of our standard interstitial cystitis treatments.
--- NOTE | 2020-07-05 09:16 | W.PM.DSUDISC ---
Discharge Plan Disposition Patient Disposition: HOME Condition: Stable Discharge Details Reason For Visit: microscopic hematuria Attending Provider: Stevo Stone Primary Care Provider: Ricki Lopez Home Meds and New Rx's Prescriptions: No Action celecoxib [Celebrex] 100 mg capsule 100 mg PO BID Qty: 60 RF: 2 sucralfate [Carafate] 1 gram tablet 1 g PO QACHS Qty: 120 RF: 12 carbidopa-levodopa [Sinemet] 25-100 mg tablet 1 tab PO QHS RF: 0 Bio-K plus 50 billion cell capsule,delayed release(DR/EC) 1 cap PO DAILY Qty: 30 RF: 0 cholecalciferol (vitamin D3) [Vitamin D3] 1,000 UNIT capsule 1 tab PO DAILY RF: 0 lansoprazole [Prevacid] 30 mg capsule,delayed release(DR/EC) 30 mg PO DAILY Qty: 30 RF: 12 Discharge Instructions Additional Instructions: follow up yearly for urinalysis (sooner if bladder symptoms worsen) Activity:: Activity as Tolerated Shower/Bathe:: 24 hours Diet:: As Tolerated Discharge Orders Discharge Orders: Discharge Order (Routine); Ordered 07/05/20 Ordered By: Stevo Stone DS: Diagnosis Discharge Diagnosis (1) Microscopic hematuria: Status: Acute
[2020-07-05] MEDS: Lidocaine 2% Jelly 6 ML SYR (09:24)
[2020-07-05] MEDS: Phenazopyridine 200 MG TAB PO (09:43)
[2020-07-05 09:53] VITALS: BP 114/71; PULSE 51; RESP 16; TEMP 36.2; O2SAT 97
== END 2020-07-05 10:25 | disposition home or self-care (01) ==
PROVIDERS: PCP Nurse Practitioner Family; Visit Provider Urology
PROC: 0TBB8ZZ Excision of Bladder, Via Natural or Artificial Opening Endoscopic (ICD-10-PCS; CPT 52000; principal; 2020-07-05 08:30)
DX: R31.29 Other microscopic hematuria (principal)
CPT/HCPCS: 52000; NC; J0690; J1100; J1885; J2405; J2704

== ENCOUNTER 2020-08-18 02:06 | Outpatient (CLI) | payer MEDICAID, SELFPAY ==
[2020-08-18 10:25] LABS: Source Nasal/Nares
[2020-08-18 12:58] LABS: COVID-19 PCR Negative (Negative)
== END 2020-08-18 02:07 | disposition home or self-care (01) ==
LOC: LBO 02:06
PROVIDERS: PCP Nurse Practitioner Family; Visit Provider Student in an Organized Health Care Education/Training Program
DX: Z20.822 Contact with and (suspected) exposure to COVID-19 (principal); Z01.818 Encounter for other preprocedural examination
CPT/HCPCS: 87635

== ENCOUNTER 2020-08-20 06:20 | Day surgery (SDC) | payer MEDICAID, SELFPAY ==
[2020-08-20] VITALS (9 sets, daily range): BP systolic 82–118; BP diastolic 46–72; PULSE 51–64; RESP 10–19; TEMP 36–36.6; O2SAT 93–99; BMI 23.5
--- NOTE | 2020-08-20 07:01 | ANES.PREOP_ITS ---
General Info Date of Service Date Performed: 08/20/20 Height: 5 ft 3 in Weight: 60.2 kg Body Mass Index (BMI): 23.5 Surgical Procedure: Operation Date: 08/20/20 07:50 Proposed Procedures Side Surgeon p ENDOSCOPIC ILIOTIBIAL BAND RELEASE WITH TROCANTERIC BURSECTOMY Right Placido Urrutia MD Meds Allergies and Home Medications Allergies Allergy/AdvReac Type Severity Reaction Status Date / Time No Known Allergies Allergy Verified 08/20/20 06:40 Home Medication Medication Instructions Recorded celecoxib 100 mg capsule 100 mg PO BID #60 cap 02/04/18 L. acidophilus,casei,rhamnosus 50 1 cap PO DAILY #30 cap 05/01/20 billion cell capsule,delayed release sucralfate 1 gram tablet 1 g PO QACHS #120 tab 05/06/20 lansoprazole [Prevacid] 30 mg PO DAILY #30 cap 05/28/20 cholecalciferol (vitamin D3) 25 2,000 unit PO DAILY cap 08/11/20 mcg (1,000 unit) capsule multivitamin 1 tab PO DAILY 08/11/20 ropinirole 0.5 mg tablet 0.5 mg PO HS 08/11/20 Current Visit Medications: Current Medications Generic Name Dose Route Start Last Admin Trade Name Freq PRN Reason Stop Dose Admin Ringer's Solution 1,000 mls @ 100 mls/hr 08/20/20 06:00 IV 09/18/20 23:59 INFUSION VERA Cefazolin Sodium/Dextrose 2 gm in 50 mls @ 100 mls/hr 08/20/20 06:00 Ancef Duplex IVPB 09/18/20 23:59 PREOP VERA IV Miscellaneous Supplies 1 each 08/20/20 06:00 Iv Access IV 09/18/20 23:59 DIRECTED VERA Sodium Chloride 0 ml 08/20/20 06:00 Normal Saline Flush 10 Ml Syr IV 09/18/20 23:59 PRN PRN Sodium Chloride 0 ml 08/20/20 06:00 Normal Saline 10 Ml Vial IJ 09/18/20 23:59 DIRECTED PRN Sterile Water 0 ml 08/20/20 06:00 Water,Injection,Sterile 10 Ml Vial IJ 09/18/20 23:59 DIRECTED PRN PFSH Active Problems Active Problems: Problem Status Onset Code Unexplained weight loss R63.4 Mass of right lower extremity R22.41 Trochanteric bursitis, right hip M70.61 Status post tubal ligation Z98.51 S/P laparoscopic cholecystectomy Z90.49 Smoker F17.200 Hip abductor tendonitis M76.899 Iliotibial band syndrome of right side M76.31 Smoker F17.200 Chronic suprapubic pain R10.2, G89.29 Blood in urine R31.9 Diverticula of colon K57.30 Hiatal hernia K44.9 Gastritis K29.70 Microscopic hematuria R31.29 GERD (gastroesophageal reflux disease) K21.9 COPD (chronic obstructive pulmonary disease) J44.9 Posterior subcapsular age-related cataract, right eye H25.041 Migraine headache without aura G43.009 Medical History Medical History Anxiety associated with depression Arthritis of right knee Cataract, bilateral Chronic low back pain Common migraine COPD (chronic obstructive pulmonary disease) Cough Degenerative joint disease Foot fracture GERD (gastroesophageal reflux disease) Headache Heart murmur, systolic Low back pain Microscopic hematuria Migraine headache without aura Mitral valve regurgitation Mild 2016 Echo Nuclear sclerotic cataract of left eye Nuclear sclerotic cataract of right eye JOSHUA on CPAP Osteoarthritis of both knees Other specified anxiety disorders Posterior subcapsular age-related cataract, right eye Puncture wound Restless leg syndrome Tobacco dependence 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 denies this History of carpal tunnel release History of cholecystectomy History of esophagogastroduodenoscopy (EGD) History of tubal ligation Status post cataract extraction and insertion of intraocular lens of right eye (03/01/18) Tobacco Smoking/Tobacco Use Status: Former Tobacco Use Alcohol Alcohol Intake: never Substance Use Substance use: Never Substance use type: does not use Vital Signs and Lab Results Vital Signs Most Recent Vital Signs in EMR: Most Recent Vital Signs Temp Pulse Resp BP Pulse Ox 36.6 C 59 L 16 118/72 98 08/20/20 06:42 08/20/20 06:42 08/20/20 06:42 08/20/20 06:42 08/20/20 06:42 Lab Results Blood Type / Crossmatch: No Data to Display Complete Blood Count: No Data to Display Complete Metabolic Panel: No Data to Display Liver Function Panel: No Data to Display Coagulation Panel: No Data to Display Cardiac Panel: No Data to Display Arterial Blood Gas: No Data to Display Venous Blood Gas: No Data to Display Pancreas Panel: No Data to Display Thyroid Panel: 2 No Data to Display Infectious Disease: Coronavirus (COVID-19)(PCR) Negative (Negative) 08/18/20 09:37 08/18/20 Coronavirus 2019 Source Nasal/nares 08/18/20 09:37 08/18/20 Blood Cultures: No Data to Display Toxicology Panel: No Data to Display Imaging and Studies Imaging and Studies Stress Test Summary: Date of study: 06/12/2016 *PATIENT PRESENTATION* Height: 160cm ((63in) ) Blood Pressure: Weight: 56.4kg ((124lb) ) BSA: 1.59m^2 Ordering physician: Waqar Hardy MD Impressions: Normal study after maximal exercise. Summary: 1. Myocardial perfusion imaging: No myocardial perfusion defects noted. 2. The calculated left ventricular ejection fraction after stress: 67%. LV global systolic function is normal. No left ventricular regional motion abnormality. Indication: (R06.02). History: REASON FOR TESTING: PT C/O FEELING LIKE HER HEART IS RACING, AND THAT SHE CANNOT CATCH HER BREATH. RECENT TESTING DONE, SEE ECHO AND PFT REPORTS. MEDICAL HX: HEART MURMUR, COPD, GERD, BACK PAIN/SCIATICA, PRESYNCOPE, FIBROMYALGIA, DJD, MIGRAINE, ANXIETY WITH DEPRESSION, VITAMIN D DEFICIENCY. UNEXPAINIED WEIGHT LOSS. RESTLESS LEG SYNDROME. FAMILY HX: NONE SMOKIN CIGARETTES/DAY CURRENTLY. HAS SMOKED FOR 45 YEARS, UP TO 2 PPD AT TIMES. EXCERCISE: NO REGULAR EXCERCISE PMH: COPD. Risk factors: Dyslipidemia. Cholesterol: 220mg/dl. HDL: 44mg/dl. LDL: 149mg/dl. Triglycerides: 76mg/dl. ALLERGIES: NKDA MEDICATIONS: CARDIDOPA/LEVIDOPA, VIT D, MELOXICAM, PROTONIX, SUCRALFATE. Echocardiogram Summary: Date of study: 02/21/2016 Transthoracic Echocardiography M-mode, complete 2D, complete spectral Doppler, and color Doppler *STUDY CONCLUSIONS* Summary: 1. Left ventricle: The cavity size was normal. Wall thickness was normal. Systolic function was normal. The estimated ejection fraction was 60-65%. Wall motion was normal; there were no regional wall motion abnormalities. 2. Mitral valve: There was mild regurgitation. 3. Right ventricle: The cavity size was normal. Wall thickness was normal. Systolic function was normal. 4. Atrial septum: No defect or patent foramen ovale was identified. 5. Pulmonary arteries: Pulmonary systolic pressure was in the range of 25mm Hg to 35mm Hg. 6. Inferior vena cava: The vessel was normal in size. The respirophasic diameter changes were in the normal range (greater than or equal to 50%), consistent with normal central venous pressure. Anesthesia Assessment and Plan Anesthesia History Personal History: No History of Anesthesia Complications Family History: No Family History of Anesthesia Complications Exercise Tolerance Exercise Tolerance: Metabolic Equivalents>4 Pertinent Negatives Pertinent Negatives: No Symptoms of GERD (Patient denies), No Major Cardio vascular Symptoms or Complaints and Other (COPD, JOSHUA with CPAP) Cardiac & Pulmonary Exam Cardiac Exam: Known Innocent Murmur Pulmonary Exam: Clear Bilateral Breath Sounds Airway Exam Known Difficult Airway: No Mallampati Class: 3 Mouth Opening: Normal (> 3cm) Thyromental Distance: Greater than 3 cm Neck Range of Motion: Full ROM Neck Circumference: Normal Teeth Condition: Removable Dentures/Plates Upper (Upper ) and Removable Dentures/Plates Lower ASA Classification ASA Score: ASA 3 Emergency Case?: No NPO Status NPO Status: NPO Clears >2 hours, Solids >8 hours Anesthesia Plan Resuscitation Status: Full Code Anesthesia Technique: General Anesthesia Airway Planned: LMA Monitors Used: Standard Monitors
--- NOTE | 2020-08-20 07:15 | DI.RAD_ITS ---
Exam(s) XR HIP RT IN OR EXAM: XR HIP RT IN OR CLINICAL HISTORY: RIGHT HIP PAIN TECHNIQUE: 2D and realtime digital imaging was performed. COMPARISON: No exams were available for comparison FINDINGS: C-arm fluoroscopy was utilized by Dr. Urrutia during apparent trochanteric bursa injection. Hard copy shows needle placement over the trochanteric bursa on the right. IMPRESSION: RADIATION DOSE DELIVERED: Keithr= 0.85 mGy
[2020-08-20] MEDS: Lactated Ringers 1,000 ML 100 ML IV (07:23)
[2020-08-20] MEDS: ceFAZolin 2 GM/50 ML BAG IVPB (07:42)
[2020-08-20] MEDS: EPINEPHrine 30 MG/30 ML VIAL (08:32)
--- NOTE | 2020-08-20 09:27 | PDOC.DSDIS_ITS ---
Discharge Plan Disposition Patient Disposition: HOME Condition: Stable Discharge Details Reason For Visit: Right hip surgery Attending Provider: Placido Urrutia Primary Care Provider: Ricki Lopez Home Meds and New Rx's Prescriptions: New oxycodone 5 mg tablet 5 - 10 mg PO Q4H PRN (Reason: moderate to severe pain) Qty: 12 RF: 0 celecoxib 100 mg capsule 100 mg PO BID PRN (Reason: pain) Qty: 30 RF: 0 Continued celecoxib [Celebrex] 100 mg capsule 100 mg PO BID Qty: 60 RF: 2 ropinirole 0.5 mg tablet 0.5 mg PO HS RF: 0 multivitamin [Daily Multi-Vitamin] Tablet 1 tab PO DAILY RF: 0 sucralfate [Carafate] 1 gram tablet 1 g PO QACHS Qty: 120 RF: 12 Bio-K plus 50 billion cell capsule,delayed release(DR/EC) 1 cap PO DAILY Qty: 30 RF: 0 cholecalciferol (vitamin D3) [Vitamin D3] 25 mcg (1,000 unit) capsule 2,000 unit PO DAILY RF: 0 lansoprazole [Prevacid] 30 mg capsule,delayed release(DR/EC) 30 mg PO DAILY Qty: 30 RF: 12 Discharge Instructions Additional Instructions: Surgery: Right hip endoscopic iliotibial band release with trochanteric bursectomy Activity: Weightbearing as tolerated. May use walker as necessary for a couple weeks. Gently increase range of motion. Progressively return to full activities over the next month. A physical therapy prescription will be provided separately in the office of follow-up if needed. Prescriptions: Continue sucralfate (Carafate) before meals and at bedtime per Dr. Argueta's instructions Celecoxib (Celebrex) 100 mg take 1 every 12 hours as needed for moderate pain Oxycodone 5 mg take 1-2 every 4-6 hours as needed for severe pain You may use [id number] Tylenol (acetaminophen) as needed for mild pain. These pain medications may be taken all at once or in different combinations as needed. Also, recommend Colace (docusate) as a stool softener as surgery and pain medicine cause constipation. Dressings: Leave dressing in place for 3 days. May then remove and leave open to air or cover incisions with Band-Aids. May shower after 5 days. Follow-up: 10-[address] Urrutia (2:00 PM on 09/01/20) Let us know right away if you develop any redness, drainage, fevers, chest pain, or trouble breathing. Do not drink alcohol or drive for at least 24 hours after anesthesia. Please call the office during business hours with any questions or concerns. Referrals: Placido Urrutia MD [ [facility] STAFF PHYSICIAN] - Discharge Orders Discharge Orders: Discharge Order (Routine); Ordered 08/20/20 Ordered By: Placido Urrutia DS: Diagnosis Discharge Diagnosis (1) Trochanteric bursitis, right hip: Status: Acute (2) Iliotibial band syndrome of right side: Status: Acute
[2020-08-20] MEDS: rOPINIRole 0.5 MG TAB PO (09:28)
--- NOTE | 2020-08-20 09:30 | W.PM.OP ---
Date of service: 08/20/20 Time of Service: 07:33 Operative Note Operative Note DATE OF PROCEDURE: 08/20/20 PRE-OP DIAGNOSIS: Right 1. Iliotibial band syndrome 2. 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 Findings: Tight iliotibial band. Abundant inflamed trochanteric bursitis. Procedure Description: In the operating room, general anesthesia was induced. The patient was positioned supine on the [place] operating room table. All bony prominences were well-padded. Preoperative antibiotics were administered. The hip was prepped and draped in the usual sterile fashion. The correct patient, procedure, and side of the procedure were all verified prior to incision. 30 cc of 0.5% bupivacaine containing epinephrine was infiltrated about the subcutaneous tissues for the planned anterior lateral and distal anterolateral portals as well as deeply over the greater trochanter. A knife was used to incise the skin for the anterior lateral and distal anterolateral portals followed by blunt dissection subcutaneously. Under fluoroscopic guidance, a switching stick and arthroscope were inserted localizing the iliotibial band over the greater trochanter. Blunt dissection and the mechanical shaver were used to resect fat and overlying tissue about the center of the iliotibial band and carefully expose the anterior and posterior margins. Once there was adequate exposure of the IT band, the greater trochanter was again localized under fluoroscopic guidance with a spinal needle inserted through the skin down to bone. This central area was marked using the radiofrequency ablator. A [place] blade was brought in and used to create a 2 cm longitudinal incision in line with the IT band fibers as well as extending it in a cruciate fashion with 2 cm incisions anteriorly and posteriorly. The radiofrequency ablator was used to achieve hemostasis. The mechanical shaver and radiofrequency ablator were then used to debride the IT band released edges exposing the trochanteric bursa. The mechanical shaver was then used to excise the trochanteric bursa taking care to protect musculature about the margins of the greater trochanter as well as neurovascular structures especially posteriorly. There was excellent visualization of the vastus lateralis as well as gluteus medius confirming appropriate bursa excision. The hip was brought through range of motion including internal and external rotation and there was no impinging iliotibial band tissue or remaining pathologic bursa. The viewing and working portals were switched and appropriate IT band release, trochanteric bursa excision, and hemostasis confirmed. Suction was used to remove fluid from the endoscopic space. The portals were closed using 3-0 Monocryl in a buried fashion. Steri-Strips were applied over the incisions followed by Xeroform, dry 4 x 4 gauze, an ABD pad and secured with tape. The patient awoke from anesthesia without complication and was transferred to the recovery room in a stable condition.
--- NOTE | 2020-08-20 10:28 | W.ANESPOSTOP ---
Postoperative Evaluation Date, Time and Location Date Performed: 08/20/20 Time Performed: 10:28 Patient Location: Day Surgery Unit Vital Signs Most Recent Imported Vital Signs: Most Recent Vital Signs Temp Pulse Resp BP Pulse Ox 36 C L 54 L 18 104/66 99 08/20/20 10:22 08/20/20 10:22 08/20/20 10:22 08/20/20 10:22 08/20/20 10:22 Pain Score Most Recent Pain Score: Most Recent Pain Score Pain Level 1 08/20/20 10:22 Assessment Mental Status: Awake (Alert & Oriented to Patient Baseline) Airway and Respiratory Function: Patent airway with normal (patient baseline) respiratory exam Cardiovascular Function: Hemodynamically Stable Hydration Status: Adequately Hydrated Nausea & Vomiting: No Nausea or Vomiting Pain: Pt. Denies Any Pain Peripheral Nerve Block: Patient did not receive a nerve block
== END 2020-08-20 10:35 | disposition home or self-care (01) ==
PROVIDERS: PCP Nurse Practitioner Family; Visit Provider Student in an Organized Health Care Education/Training Program
PROC: (CPT 29863; principal; 2020-08-20 07:30)
DX: M70.61 Trochanteric bursitis, right hip (principal); M76.31 Iliotibial band syndrome, right leg; K21.9 Gastro-esophageal reflux disease without esophagitis; G47.33 Obstructive sleep apnea (adult) (pediatric); F17.210 Nicotine dependence, cigarettes, uncomplicated; J44.9 Chronic obstructive pulmonary disease, unspecified
CPT/HCPCS: 27062; 27305; 73501; J0690; J1100; J2405; J2704

== ENCOUNTER 2020-09-14 11:16 | Outpatient (REF) | payer MEDICAID, SELFPAY ==
[2020-09-14 14:02] LABS: Anion Gap 8.7 mmol/L (3-11); BUN 16 mg/dL (7-18); CO2 27.3 mmol/L (21.0-32.0); CREATININE 0.8 mg/dL (0.55-1.02); Calcium 9.1 mg/dL (8.5-10.1); Calculated LDL 155 mg/dL (<100); Chloride 106 mmol/L (98-107); Cholesterol 236 mg/dL (<200); Glucose 99 mg/dL (74-106); HDL Cholesterol 48 mg/dL (40-60); Potassium 4.2 mmol/L (3.5-5.1); Sodium 142 mmol/L (136-145); Triglyceride 166 mg/dL (<150)
== END 2020-09-14 11:17 | disposition home or self-care (01) ==
LOC: NCHCN 11:16
PROVIDERS: PCP Nurse Practitioner Family; Visit Provider Family Medicine
DX: E87.6 Hypokalemia (principal); E78.89 Other lipoprotein metabolism disorders
CPT/HCPCS: 80048; 80061

== ENCOUNTER 2020-12-17 15:11 | Outpatient (REF) | payer MEDICAID, SELFPAY | END 2020-12-17 15:12 | disposition home or self-care (01) | LOC: LBN 15:11 | PROVIDERS: PCP Family Medicine; Visit Provider Physician Assistant Medical | DX: R30.9 Painful micturition, unspecified (principal) | CPT/HCPCS: 87077; 87086; 87186 ==

== ENCOUNTER 2020-12-17 15:50 | Outpatient (CLI) | payer MEDICAID, SELFPAY ==
--- NOTE | 2020-12-17 | DI.CT_ITS ---
Exam(s) CT ABDOMEN PELVIS W EXAM: CT ABDOMEN PELVIS W CLINICAL HISTORY: UTI N36.0, ABD PAIN LOOKING FOR DIVERTICULITIS. TECHNIQUE: Imaging Protocol: Axial computed tomography images with coronal and sagittal reformatted images were created and reviewed CONTRAST MATERIAL: Intravenous: Omnipaque 100cc Oral: None COMPARISON: CT CT ABDOMEN PELVIS W from 05/27/[address] ABDOMEN PELVIS W from 05/27/2020 FINDINGS: VISUALIZED LUNG BASES: No nodules nor pleural effusions evident. ABDOMEN: There is no ascites. LIVER: There are no focal hepatic lesions evident. No evidence of hepatic abscess. GALLBLADDER/BILIARY: The gallbladder is again noted be surgically absent. CBD diameter upper normal. PANCREAS: No evidence of pancreatic mass nor dilatation of the pancreatic duct. SPLEEN: The spleen is not enlarged. Peripherally calcified or enhancing round 9 millimeter density i n the spleen is again noted. No new splenic lesions. Splenic and portal veins are patent. ADRENALS: There are no significant adrenal masses. KIDNEYS:Right kidney unremarkable. Small benign cyst in the medial cortex of the left kidney measuri ng 5 millimeters again noted. No solid renal masses. No calculi nor hydronephrosis. There is unifo rm enhancement of the ta of both ureters as well as the urinary bladder wall, more so than previou s. Probably related to infection.. ABDOMINAL AORTA: Anatomic variant noted. Common hepatic and splenic artery arises independent vessel [id number] off the anterior abdominal aorta. There is no celiac trunk. The superior mesenteric a rtery appears unremarkable. Inferior mesenteric artery is patent. The abdominal aorta is calcified. Mildly prominent but with maximum external diameter less than 2 cm. Common iliac arteries are calc ified but not enlarged. LYMPH NODES:There is no retroperitineal nor paraaortic adenopathy. ABDOMINAL WALL: No evidence of significant anterior abdominal wall hernia. GI: There is no evidence of bowel obstruction, free air, nor abscess. PELVIS: GI: No evidence of appendicitis.Sigmoid diverticulosis again noted.Previously described density intim ately associated with the lateral wall of the sigmoid is again noted, unchanged. This measures appro ximately 2.2 x 1.5 cm and contains an unchanged central hypodensity measuring 8 x 7 millimeters. Thi s is intimately associated with the lateral wall of the sigmoid none but is completely unchanged and there is no streaking around this area. This may represent the left ovary. LYMPH NODES: There is no intrapelvic nor inguinal adenopathy. REPRODUCTIVE: Uterus size is normal. No fluid in the cul-de-sac. Right ovary exhibits normal size, unchanged. URINARY BLADDER: No calculi nor obvious masses evident OSSEOUS: No significant osseous lesions. Mild degenerative anterolisthesis L4 upon L5 related to facet arthropathy. Approximately 3 millimete rs anterior slippage of L4 upon L5. L5-S1 level exhibits decreased disc height but no listhesis. IMPRESSION: 1. Gallbladder is again noted be surgically absent. The biliary tree is not dilated. 2. Again noted is extensive sigmoid diverticulosis. There does not appear to be acute diverticulitis . Previously described density associated with the lateral wall of the sigmoid is unchanged, measuri ng 2.2 x 1.5 cm. This probably represents the left ovary. 3. There is relatively uniform enhancement of the urothelium throughout the system, not previously present. This most probably represents cystitis, ureteritis, and upper tract infection. There is n o asymmetric enhancement of the kidneys to suggest prominent pyelonephritis. Recommend urinalysis. 4. No ascites nor lymphadenopathy evident Solitary finding in the spleen as described above which is unchanged. This has benign appearance.. RADIATION DOSE DELIVERED: 635.24mGy.cm Total DLP DATA REPOSITORY: All CT scans at this facility are submitted to the National Radiology Data Registry (NRDR) Dose Index Registry (DIR) with the [employer] (ACR). RADIATION OPTIMIZATION: All CT scans at this facility use at least one of these dose optimization te chniques: automated exposure control; mA and/or kV adjustment per patient size (includes targeted exa ms where dose is matched to clinical indication); or iterative reconstruction.
[2020-12-17] MEDS: Omnipaque 350 MG/ML 50 ML BTL IJ (14:18)
[2020-12-17] MEDS: Breeza Beverage 473 ML BTL PO (14:20)
[2020-12-17 14:49] LABS: CREATININE 0.8 mg/dL (0.55-1.02)
--- NOTE | 2020-12-17 16:39 | DI.VRAD_ITS ---
PROCEDURE INFORMATION: Exam: CT Abdomen And Pelvis With Contrast Exam date and time: 12/17/2020 3:56 PM Age: 65 years old Clinical indication: Abdominal pain; Generalized; Patient HX: Abd pain, looking for diverticulitis TECHNIQUE: Imaging protocol: Computed tomography of the abdomen and pelvis with contrast. COMPARISON: CT ABDOMEN PELVIS W 05/27/2020 1:34 PM FINDINGS: Lungs: The visualized lung bases are clear. Liver: Normal. No mass. Gallbladder and bile ducts: Cholecystectomy. Pancreas: Normal. No ductal dilation. Spleen: Stable coarse calcifications in the splenic hilum and the lower splenic parenchyma. 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 Adrenal glands: Normal. No mass. Kidneys and ureters: Multiple stable simple subcentimeter bilateral renal cortical cysts. Diffuse bilateral urothelial enhancement of the bilateral renal pelves, ureters and the urinary bladder. Normal bilateral symmetric enhancement of the renal parenchyma without evidence for acute pyelonephritis at this time. No evidence for intraluminal gas at this time. Stomach and bowel: Sigmoid diverticula without evidence for acute diverticulitis. Appendix: Appendix is normal in caliber. No periappendiceal edema. No findings to suggest acute appendicitis. Intraperitoneal space: Unremarkable. No free air. No significant fluid collection. Vasculature: Mild atherosclerotic vascular calcifications. No aortic aneurysm or dissection. Lymph nodes: Unremarkable. No enlarged lymph nodes. Urinary bladder: Thick-walled urinary bladder with mucosal enhancement. Reproductive: Unremarkable as visualized. Bones/joints: Unremarkable. No acute fracture. Soft tissues: Unremarkable. IMPRESSION: 1. Enhancing urothelium throughout the system suggestive of acute infection. Bilateral pyelitis, ureteritis and cystitis. Correlate with urinalysis. 2. No evidence for diverticulitis. Stable scattered sigmoid diverticula. Dictated and Authenticated by: Raffaele Paul MD. Ordering:KHANH Phan MD
== END 2020-12-17 16:10 ==
PROVIDERS: PCP Family Medicine; Visit Provider Physician Assistant Medical
DX: N39.0 Urinary tract infection, site not specified (principal); R10.32 Left lower quadrant pain; R93.5 Abnormal findings on diagnostic imaging of other abdominal regions, including retroperitoneum
CPT/HCPCS: 74177; 82565; Q9967

== ENCOUNTER → 2021-09-22 02:36 | Outpatient (CLI) | payer MEDICAID, SELFPAY ==
--- NOTE | 2021-09-22 13:45 | DI.CTLCSR_ITS ---
Exam(s) CT CHEST LUNG CANCER SCREEN EXAM: CT CHEST LUNG CANCER SCREEN CLINICAL HISTORY: SMOKER, F17.200 TECHNIQUE: Imaging Protocol: Axial computed tomography images with coronal and sagittal reformatted images were created and reviewed. Low dose screening protocol. COMPARISON: CT CT CHEST W from 10/23/[address] ABDOMEN PELVIS W from 04/29/2020 FINDINGS: Tracheobronchial tree: No bronchiectasis or mucus plugging.. Mediastinum and Eliza: No dominant adenopathy or fluid collection. Pulmonary parenchyma: No consolidation or dominant measurable mass. Mild emphysematous changes. Lung Nodules: Stable 4 millimeter nodule medial right upper lobe. Stable 5 x 3 millimeter perifissur al nodule at the anterior right middle lobe. Pleura: No effusion. No pneumothorax. Heart: The heart is not dilated. No coronary artery calcifications are seen. Aorta: Thoracic aorta non-dilated.Mild calcifications Upper abdomen: Status post cholecystectomy. Stable splenic calcification. Bones: Unremarkable for age. Soft Tissues: Unremarkable. IMPRESSION: No suspicious pulmonary nodules. Lung RADS Cat 2 - Benign Appearance / Behavior: Nodules with a very low likelihood of becoming a clin ically active cancer due to size or lack of growth Lung-RADS 1.0 CATEGORIES: Category 0 - Prior chest CT exam(s) being located for comparison. Category 1 - Annual screening in 12 months. No nodules or definitely benign nodules. Category 2 - Annual screening in 12 months. Benign appearance. Nodules with low likelihood of becomin g active cancer. Category 3 - 6-month follow-up. Probably benign. Short-term follow-up suggested. Nodules with low lik elihood of becoming active cancer. Category 4A - 3-month follow-up and CT/PET if >8 mm in size. Suspicious finding. Findings which requi re additional testing. Category 4B - Findings which require additional testing and tissue sampling. Category 4X - Category 3 or 4 nodules with additional features or imaging findings that increases the suspicion of malignancy. Modifier S- Potentially clinically significant findings (non lung cancer) RADIATION DOSE DELIVERED: 77.14mGy.cm Total DLP 1.84mGy CTDIvol DATA REPOSITORY: All CT scans at this facility are submitted to the National Radiology Data Registry (NRDR) Dose Index Registry (DIR) with the [employer] (ACR). RADIATION OPTIMIZATION: All CT scans at this facility use at least one of these dose optimization te chniques: automated exposure control; mA and/or kV adjustment per patient size (includes targeted exa ms where dose is matched to clinical indication); or iterative reconstruction.
== END ==
PROVIDERS: PCP Family Medicine; Visit Provider Family Medicine
DX: Z12.2 Encounter for screening for malignant neoplasm of respiratory organs (principal); F17.200 Nicotine dependence, unspecified, uncomplicated
CPT/HCPCS: 71271

== ENCOUNTER → 2021-10-12 01:38 | Outpatient (CLI) | payer MEDICAID, SELFPAY ==
--- NOTE | 2021-10-12 | DI.MAMMO_ITS ---
Exam(s) MAMMO SCREENING EXAM: MAMMO SCREENING CLINICAL HISTORY: SCREENING, Z12.39. TECHNIQUE: Bilateral full field digital CC and MLO mammographic images were obtained with 3D tomosyn thesis and utilizing computer aided detection (CAD). COMPARISON: Prior mammograms were reviewed, the most recent being May 2020. FINDINGS: No new significant radiograph findings in the right breast. In the left breast on 3D cc imaging there is a 3 x 3 millimeter nodular density located 3 cm in from the nipple. Not evident on prior studies. There are no malignant-appearing microcalcification groups in this region nor elsewhere in either yanelis ast. There is no significant architectural distortion nor skin thickening-retraction. IMPRESSION: No radiographic evidence of malignancy right breast. Left breast asymmetric density-possible nodule, as described above. Spot compression CC view and lef t breast ultrasound recommended. BI-RADS Category 0 - Assessment Incomplete: Need additional imaging evaluation Breast Density - Category B - Scattered areas of fibroglandular density Breast density Category C or D implies that the patient has dense breast tissue. Dense breast tissue can make it harder to find cancer on a mammogram. Dense breast tissue is also associated with an incr eased risk of breast cancer. This information about the result of the mammogram report was provided to the patient to raise their awareness. Use this report when you speak with the patient about their risks for breast cancer, which includes their family history. At that time, you may recommend additional screening tests (Ultrasoun d or MRI) as these tests may add significant information. A negative radiographic report should not delay biopsy if a dominant or clinically suspicious mass is present. Up to ten percent of cancers are not identified on mammography. A negative report may reinforce clinical impression. Adenosis and dense breasts may obscure an underlying neoplasm. False positive reports average 6 to 10%. Patient will receive a letter notifying them of these results.
== END ==
PROVIDERS: PCP Family Medicine; Visit Provider Family Medicine
DX: Z12.31 Encounter for screening mammogram for malignant neoplasm of breast (principal); R92.8 Other abnormal and inconclusive findings on diagnostic imaging of breast
CPT/HCPCS: 77063; 77067

== ENCOUNTER → 2021-10-18 01:05 | Outpatient (CLI) | payer MEDICAID, SELFPAY ==
--- NOTE | 2021-10-18 | DI.MAMMO_ITS ---
Exam(s) MAMMO SCREEN CALL BACK UNI EXAM: MAMMO SCREEN CALL BACK UNI -LEFT AND COMPLETE LEFT BREAST ULTRASOUND CLINICAL HISTORY: F/U MAMMO, LT BREAST ASYMMETRIC DENSITY, ? NODULE. TECHNIQUE: Unilateral spot mammographic images of the left breast obtained with 3D tomosynthesisand utilizing computer aided detection (CAD). . Complete LEFT breast Ultrasound was also performed, including all 4 quadrants, the retroareolar regio n, and the ipsilateral axilla. COMPARISON: Prior mammograms were reviewed. This additional imaging was performed due to findings described on the recent screening mammogram of 10/12/2021. FINDINGS: DIAGNOSTIC LEFT BREAST MAMMOGRAM: Additional mammographic views performed todayrender this area less concerning. COMPLETE LEFT BREAST ULTRASOUND: Ultrasound performed today reveals a solitary finding which a 3 x 2 millimeter microcyst at 2 o'clock position, correspond to the finding on the mammogram.. There are no other focal ultrasound findings in all 4 quadrants. Scanning of the left axilla is negative for adenopathy. IMPRESSION: 1. Benign left breast mammographic findings. 2. Solitary micro cyst at 2 o'clock position seen on ultrasound. Appropriate follow-up is repeat left breasT mammogram in 6 months. The patient was informed of these findings and recommendations prior to leaving the department today. BI-RADS Category 3 - 6 month - Probably Benign Finding: Recommend follow-up mammography in 6 months Breast Density - Category B - Scattered areas of fibroglandular density Breast density Category C or D implies that the patient has dense breast tissue. Dense breast tissue can make it harder to find cancer on a mammogram. Dense breast tissue is also associated with an incr eased risk of breast cancer. This information about the result of the mammogram report was provided to the patient to raise their awareness. Use this report when you speak with the patient about their risks for breast cancer, which includes their family history. At that time, you may recommend additional screening tests (Ultrasoun d or MRI) as these tests may add significant information. A negative radiographic report should not delay biopsy if a dominant or clinically suspicious mass is present. Up to ten percent of cancers are not identified on mammography. A negative report may reinforce clinical impression. Adenosis and dense breasts may obscure an underlying neoplasm. False positive reports average 6 to 10%. Patient will receive a letter notifying them of these results.
--- NOTE | 2021-10-18 | DI.US_ITS ---
Exam(s) US BREAST LT COMPLETE EXAM: US BREAST LT COMPLETE CLINICAL HISTORY: F/U MAMMO, LT BREAST ASYMMETRIC DENSITY, ? NODULE. TECHNIQUE: Complete ultrasound of the left breast was performed including all 4 quadrants, the retro areolar region, and the ipsilateral axilla. COMPARISON: Prior mammograms were reviewed. FINDINGS: There is a solitary ultrasound finding which is a 3 x 2 millimeter microcyst at 2 o'clock position, t his corresponding to what was seen on the recent screening mammogram. Most importantly, there are no solid lesions in all 4 quadrants of the left breast. No significant findings in the left axilla. No adenopathy. IMPRESSION: Benign microcyst seen on ultrasound.. Appropriate follow-up is repeat left breast MAMMOGRAM in 6 mon ths. BI-RADS Category 3 - 6 month - Probably Benign Finding: Recommend follow-up mammography in 6 months Breast Density - Category B - Scattered areas of fibroglandular density Breast density Category C or D implies that the patient has dense breast tissue. Dense breast tissue can make it harder to find cancer on a mammogram. Dense breast tissue is also associated with an incr eased risk of breast cancer. This information about the result of the mammogram report was provided to the patient to raise their awareness. Use this report when you speak with the patient about their risks for breast cancer, which includes their family history. At that time, you may recommend additional screening tests (Ultrasoun d or MRI) as these tests may add significant information. A negative radiographic report should not delay biopsy if a dominant or clinically suspicious mass is present. Up to ten percent of cancers are not identified on mammography. A negative report may reinforce clinical impression. Adenosis and dense breasts may obscure an underlying neoplasm. False positive reports average 6 to 10%. Patient will receive a letter notifying them of these results.
== END ==
PROVIDERS: PCP Family Medicine; Visit Provider Family Medicine
DX: Z12.31 Encounter for screening mammogram for malignant neoplasm of breast (principal); R92.8 Other abnormal and inconclusive findings on diagnostic imaging of breast; N60.02 Solitary cyst of left breast
CPT/HCPCS: 76642; 77063; 77067

== ENCOUNTER 2022-04-20 03:28 | Outpatient (CLI) | payer MEDICARE, SELFPAY ==
--- NOTE | 2022-04-20 | DI.MAMMO_ITS ---
Exam(s) MG MAMMO DIAGNOSTIC UNI EXAM: MG MAMMO DIAGNOSTIC UNI -LEFT CLINICAL HISTORY: DIAGNOSTIC, 6 MO F/U, FU ABNL MAMMO, R92.8,LT BREAST CYST. TECHNIQUE: Unilateral spot mammographic images were obtained with 3D tomosynthesis technique and uti lizing computer aided detection (CAD). COMPARISON: Prior mammograms were reviewed, the most recent being September 2021. Ultrasound performed a t that time was also reviewed.. FINDINGS: No new significant left breast findings. The previously described small nodular density is somewhat less evident on today's mammogram, further evidence that it was a benign finding. No new malignant-a ppearing microcalcification groups. No new nodules. No new architectural distortion or skin thicken ing-retraction. IMPRESSION: No radiographic evidence of malignancy in left breast Appropriate follow-up is to keep this patient on her yearly mammogram schedule, with earlier imaging if a self detected breast change is noted.. The patient was informed of the findings and follow-up recommendations [facility]. BI-RADS Category 2 - Benign Findings Breast Density - Category C - Heterogeneously dense Breast density Category C or D implies that the patient has dense breast tissue. Dense breast tissue can make it harder to find cancer on a mammogram. Dense breast tissue is also associated with an incr eased risk of breast cancer. This information about the result of the mammogram report was provided to the patient to raise their awareness. Use this report when you speak with the patient about their risks for breast cancer, which includes their family history. At that time, you may recommend additional screening tests (Ultrasoun d or MRI) as these tests may add significant information. A negative radiographic report should not delay biopsy if a dominant or clinically suspicious mass is present. Up to ten percent of cancers are not identified on mammography. A negative report may reinforce clinical impression. Adenosis and dense breasts may obscure an underlying neoplasm. False positive reports average 6 to 10%. Patient will receive a letter notifying them of these results.
== END 2022-04-20 03:48 ==
PROVIDERS: PCP Family Medicine; Visit Provider Family Medicine
DX: R92.8 Other abnormal and inconclusive findings on diagnostic imaging of breast (principal); N60.82 Other benign mammary dysplasias of left breast
CPT/HCPCS: 77061; 77065; G0279

== ENCOUNTER 2022-08-17 16:11 | Outpatient (REF) | payer MEDICARE, MEDICAID, SELFPAY ==
[2022-08-17 20:46] LABS: Abs Immature Grans 0.01 10^3/uL (0.0-0.06); Absolute Basophil Count 0.06 10^3/uL (0.0-0.2); Absolute Eosinophil Count 0.15 10^3/uL (0.0-0.7); Absolute Lymphocyte Count 1.91 10^3/uL (1.2-3.4); Absolute Monocyte Count 0.56 10^3/uL (0.1-0.8); Absolute Neutrophil Count 4.53 10^3/uL (1.2-6.7); Basophils % 0.8; Eosinophils % 2.1; HCT 41.2 % (36.0-46.0); HGB 14.1 g/dL (11.2-15.7); Immature Grans % 0.1; Lymphocytes % 26.5; MCH 32.2 pg (27.0-33.0); MCHC 34.2 % (32.0-36.0); MCV 94 fL (80-95); MPV 10.1 fL (8.0-11.0); Monocytes % 7.8; Neutrophils % 62.7; Platelet Count 306 10^3/uL (130-400); RBC 4.38 10^6/uL (3.93-5.22); RDW 11.7 % (11.7-14.6); RDW-SD 40.6 fL; WBC 7.22 10^3/uL (4.4-10.8)
[2022-08-17 21:03] LABS: ALT 27 U/L (14-59); AST 20 U/L (15-37); Albumin 4.1 g/dL (3.4-5.0); Alkaline Phosphatase 125 U/L (46-116); BUN 22 mg/dL (7-18); Bilirubin, Total 0.4 mg/dL (0.2-1.0); Calcium 9.2 mg/dL (8.5-10.1); Chloride 105 mmol/L (98-107); Estimated GFR 62.52 (mL/min/1.73m2); Glucose 104 mg/dL (74-106); Potassium 3.6 mmol/L (3.5-5.1); Sodium 140 mmol/L (136-145); Total Protein 7.5 g/dL (6.4-8.2)
== END 2022-08-17 16:12 | disposition home or self-care (01) ==
LOC: NCHCN 16:11
PROVIDERS: PCP Family Medicine; Visit Provider Family Medicine
DX: R10.32 Left lower quadrant pain (principal)
CPT/HCPCS: 80053; 85025

== ENCOUNTER 2022-08-18 08:23 | Outpatient (CLI) | payer MEDICARE, MEDICAID, SELFPAY ==
--- NOTE | 2022-08-18 | DI.CT_ITS ---
Exam(s) CT ABDOMEN PELVIS W EXAM: CT ABDOMEN PELVIS W CLINICAL HISTORY: LT LOWER QUAD ABD PAIN, R10.32 TECHNIQUE: Imaging Protocol: Axial computed tomography images with coronal and sagittal reformatted images were created and reviewed CONTRAST MATERIAL: Intravenous: Omnipaque 350 Contrast volume:100 mL Oral: Yes COMPARISON: CT CT ABDOMEN PELVIS W from 12/17/2020 FINDINGS: ABDOMEN: Lung Bases: Normal where visualized. Liver: Normal density. No measurable mass. Portal, Superior Mesenteric, and Splenic Veins: Unremarkable. Gallbladder and Biliary Tract: Status post cholecystectomy. There has been no change in size of the common bile duct. This likely reflects the post cholecystectomy state. Pancreas: Normal density, no abnormal calcifications or inflammatory process. Spleen: Normal. There is a stable peripherally calcified cystic lesion in the spleen. Adrenals: No masses seen. Kidneys: Normal size, contour and axis. No radiodense stones or obstructive uropathy. There are few t iny hypodensities seen in the left kidney. They are too small for further characterization but likel y reflect small cysts. No follow-up is recommended. Abdominal Aorta: Abdominal portion non-dilated. Atherosclerosis. Bowel: There is diverticulosis seen in the sigmoid colon, but no evidence of acute diverticulitis. T here is no evidence of bowel obstruction or bowel wall thickening. Appendix is unremarkable. Peritoneal Cavity: No ascites, collection or mesenteric inflammatory response. No free air. Lymph Nodes: Within normal limits. Bones: Within normal limits for the patient's age. Soft Tissues: Unremarkable. PELVIS: Bladder: Symmetric distention, no gross wall thickening. Reproductive Organs: Unremarkable as visualized. Lymph Nodes: Within normal limits. Bones: Within normal limits for the patient's age. IMPRESSION: 1. No acute abdominal or pelvic process. 2. Sigmoid diverticulosis, but no evidence of acute diverticulitis. RADIATION DOSE DELIVERED: 723.15mGy.cm Total DLP DATA REPOSITORY: All CT scans at this facility are submitted to the National Radiology Data Registry (NRDR) Dose Index Registry (DIR) with the [employer] (ACR). RADIATION OPTIMIZATION: All CT scans at this facility use at least one of these dose optimization te chniques: automated exposure control; mA and/or kV adjustment per patient size (includes targeted exa ms where dose is matched to clinical indication); or iterative reconstruction.
[2022-08-18] MEDS: Omnipaque 350 MG/ML 100 ML BTL IJ (13:45)
[2022-08-18] MEDS: Normal Saline - Diluent 50 ML VIAL IJ (13:46)
== END 2022-08-18 08:43 ==
LOC: DI 08:33
PROVIDERS: PCP Family Medicine; Visit Provider Family Medicine
DX: R10.32 Left lower quadrant pain (principal); K57.30 Diverticulosis of large intestine without perforation or abscess without bleeding
CPT/HCPCS: 74177; J3490

== ENCOUNTER 2022-10-19 01:29 | Outpatient (CLI) | payer MEDICARE, MEDICAID, SELFPAY ==
--- NOTE | 2022-10-19 | DI.MAMMO_ITS ---
Exam(s) MAMMO SCREENING EXAM: MAMMO SCREENING CLINICAL HISTORY: SCREENING, [facility],Z00.00 TECHNIQUE: Bilateral full field digital CC and MLO mammographic images were obtained with 3D tomosyn thesis and utilizing computer aided detection (CAD). COMPARISON: Available for comparison. FINDINGS: Masses/Architectural Distortion: None seen. Microcalcifications: No suspicious pleomorphic-type are seen. Skin Thickening/Nipple Retraction: None. IMPRESSION: 1. No significant interval change with no specific features of malignancy noted. 2. Unless there is more urgent need, screening mammography is recommended, as per [employer] guidelines. BI-RADS Category 1 - Negative Breast Density - Category C - Heterogeneously dense Breast density category C or D implies that the patient has dense breast tissue. Dense breast tissue is very common and is not abnormal but dense breast tissue can make it harder to find cancer on a ma mmogram. Also, dense breast tissue may increase their breast cancer risk. This information about the result of the mammogram report was provided to the patient to raise their awareness. Use this report when you speak with the patient about their risks for breast cancer, which includes their family hist ory. At that time, you may recommend for more screening tests (Ultrasound or MRI) as they might be us eful based on their risk. A negative radiographic report should not delay biopsy if a dominant or clinically suspicious mass is present. Up to ten percent of cancers are not identified on mammography. A negative report may reinforce clinical impression. Adenosis and dense breasts may obscure an underlying neoplasm. False positive reports average 6 to 10%. Patient will receive a letter notifying them of these results.
== END 2022-10-19 01:49 ==
LOC: DI 01:31
PROVIDERS: PCP Family Medicine; Visit Provider Family Medicine
DX: Z12.31 Encounter for screening mammogram for malignant neoplasm of breast (principal)
CPT/HCPCS: 77063; 77067

== ENCOUNTER → 2022-11-14 01:31 | Outpatient (CLI) | payer MEDICARE, MEDICAID, SELFPAY ==
--- NOTE | 2022-11-14 09:31 | DI.CTLCSR_ITS ---
Exam(s) CT CHEST LUNG CANCER SCREEN EXAM: CT CHEST LUNG CANCER SCREEN CLINICAL HISTORY: CIGARETTE SMOKER, F17.210; 21-YEAR PACK HISTORY TECHNIQUE: Imaging Protocol: Axial computed tomography images with coronal and sagittal reformatted images were created and reviewed. Low dose screening protocol. COMPARISON: CT CT CHEST LUNG CANCER SCREEN from 09/22/2021 FINDINGS: Tracheobronchial tree: No bronchiectasis or mucus plugging.. Mediastinum and Eliza: No dominant adenopathy or fluid collection. Pulmonary parenchyma: No consolidation or dominant measurable mass. Mild emphysematous changes. Lung Nodules: 4 millimeter nodule medial right upper lobe. 5 millimeter perifissural nodule right mi ddle lobe anteriorly. Pleura: No effusion. No pneumothorax. Heart: The heart is not dilated. Minimal coronary artery calcifications are seen. Aorta: Thoracic aorta non-dilated. Mild atherosclerotic changes. Upper abdomen: Unremarkable. Status post cholecystectomy. Bones: Endplate osteophytes in the thoracic spine. Fractures. Soft Tissues: Unremarkable. IMPRESSION: Stable small pulmonary nodules. Lung RADS Cat 2 - Benign Appearance / Behavior: Nodules with a very low likelihood of becoming a clin ically active cancer due to size or lack of growth Lung-RADS 1.0 CATEGORIES: Category 0 - Prior chest CT exam(s) being located for comparison. Category 1 - Annual screening in 12 months. No nodules or definitely benign nodules. Category 2 - Annual screening in 12 months. Benign appearance. Nodules with low likelihood of becomin g active cancer. Category 3 - 6-month follow-up. Probably benign. Short-term follow-up suggested. Nodules with low lik elihood of becoming active cancer. Category 4A - 3-month follow-up and CT/PET if >8 mm in size. Suspicious finding. Findings which requi re additional testing. Category 4B - Findings which require additional testing and tissue sampling. Category 4X - Category 3 or 4 nodules with additional features or imaging findings that increases the suspicion of malignancy. Modifier S- Potentially clinically significant findings (non lung cancer) RADIATION DOSE DELIVERED: 77.23mGy.cm Total DLP DATA REPOSITORY: All CT scans at this facility are submitted to the National Radiology Data Registry (NRDR) Dose Index Registry (DIR) with the [employer] (ACR). RADIATION OPTIMIZATION: All CT scans at this facility use at least one of these dose optimization te chniques: automated exposure control; mA and/or kV adjustment per patient size (includes targeted exa ms where dose is matched to clinical indication); or iterative reconstruction.
== END ==
PROVIDERS: PCP Family Medicine; Visit Provider Family Medicine
DX: F17.210 Nicotine dependence, cigarettes, uncomplicated (principal); Z12.2 Encounter for screening for malignant neoplasm of respiratory organs; R91.1 Solitary pulmonary nodule
CPT/HCPCS: 71271

== ENCOUNTER → 2023-10-22 01:07 | Outpatient (CLI) | payer MEDICARE, MEDICAID, SELFPAY ==
--- NOTE | 2023-10-22 | DI.MAMMO_ITS ---
Exam(s) MAMMO SCREENING EXAM: MAMMO SCREENING CLINICAL HISTORY: SCREENING Z12.39 TECHNIQUE: Bilateral full field digital CC and MLO mammographic images were obtained with 3D tomosyn thesis and utilizing computer aided detection (CAD). COMPARISON: Available for comparison. FINDINGS: Masses/Architectural Distortion: None seen. Microcalcifications: No suspicious pleomorphic-type are seen. Skin Thickening/Nipple Retraction: None. IMPRESSION: 1. No significant interval change with no specific features of malignancy noted. 2. Unless there is more urgent need, screening mammography is recommended, as per [employer] guidelines. BI-RADS Category 1 - Negative Breast Density - Category B - Scattered areas of fibroglandular density Breast density category C or D implies that the patient has dense breast tissue. Dense breast tissue is very common and is not abnormal but dense breast tissue can make it harder to find cancer on a ma mmogram. Also, dense breast tissue may increase their breast cancer risk. This information about the result of the mammogram report was provided to the patient to raise their awareness. Use this report when you speak with the patient about their risks for breast cancer, which includes their family hist ory. At that time, you may recommend for more screening tests (Ultrasound or MRI) as they might be us eful based on their risk. A negative radiographic report should not delay biopsy if a dominant or clinically suspicious mass is present. Up to ten percent of cancers are not identified on mammography. A negative report may reinforce clinical impression. Adenosis and dense breasts may obscure an underlying neoplasm. False positive reports average 6 to 10%. Patient will receive a letter notifying them of these results.
== END ==
PROVIDERS: PCP Family Medicine; Visit Provider Family Medicine
DX: Z12.39 Encounter for other screening for malignant neoplasm of breast (principal); Z12.31 Encounter for screening mammogram for malignant neoplasm of breast
CPT/HCPCS: 77063; 77067

== ENCOUNTER 2023-12-12 22:14 | Outpatient (REF) | payer MEDICARE, SELFPAY ==
[2023-12-12 22:18] LABS: Abs Immature Grans 0.02 10^3/uL (0.0-0.06); Absolute Basophil Count 0.05 10^3/uL (0.0-0.2); Absolute Eosinophil Count 0.19 10^3/uL (0.0-0.7); Absolute Lymphocyte Count 1.98 10^3/uL (1.2-3.4); Absolute Monocyte Count 0.59 10^3/uL (0.1-0.8); Basophils % 0.7 %; Eosinophils % 2.5 %; HCT 42.9 % (36.0-46.0); HGB 14.4 g/dL (11.2-15.7); Immature Grans % 0.3 %; Lymphocytes % 26.3 %; MCH 32.7 pg (27.0-33.0); MCHC 33.6 % (32.0-36.0); MCV 98 fL (80-95); MPV 10.4 fL (8.0-11.0); Monocytes % 7.8 %; Neutrophils % 62.4 %; Platelet Count 307 10^3/uL (130-400); RDW 11.9 % (11.7-14.6); RDW-SD 42.9 fL; WBC 7.53 10^3/uL (4.4-10.8)
[2023-12-12 22:33] LABS: ALT 23 U/L (14-59); AST 19 U/L (15-37); Alkaline Phosphatase 143 U/L (46-116); Anion Gap 10.7 mmol/L (3-11); BUN 20 mg/dL (7-18); Bilirubin, Total 0.44 mg/dL (0.2-1.0); CO2 25.3 mmol/L (21.0-32.0); Calcium 9.4 mg/dL (8.5-10.1); Chloride 104 mmol/L (98-107); Estimated GFR 61.75 (mL/min/1.73m2); Glucose 110 mg/dL (74-106); Potassium 3.9 mmol/L (3.5-5.1); Sodium 140 mmol/L (136-145); Total Protein 6.9 g/dL (6.4-8.2)
== END 2023-12-12 22:15 | disposition home or self-care (01) ==
LOC: NCHCN 22:14
PROVIDERS: PCP Family Medicine; Visit Provider Family Medicine
DX: K21.00 Gastro-esophageal reflux disease with esophagitis, without bleeding (principal)
CPT/HCPCS: 80053; 85025

== ENCOUNTER 2024-01-08 02:11 | Outpatient (CLI) | payer MEDICARE, SELFPAY ==
--- NOTE | 2024-01-08 | DI.CTLCSR_ITS ---
Exam(s) CT CHEST LUNG CANCER SCREEN EXAM: CT CHEST LUNG CANCER SCREEN CLINICAL HISTORY: NICOTINE DEPENDENCE F17.210 TECHNIQUE: Imaging Protocol: Axial computed tomography images with coronal and sagittal reformatted images were created and reviewed. Low dose screening protocol. COMPARISON: CT CT CHEST LUNG CANCER SCREEN from 11/14/2022 FINDINGS: Tracheobronchial tree: No bronchiectasis or mucus plugging. Mediastinum and Eliza: No dominant adenopathy or fluid collection. Pulmonary parenchyma: No consolidation or dominant measurable mass. Mild emphysematous changes. No si gnificant interstitial changes. Lung Nodules: Stable 4 millimeter nodule medial right upper lobe. Stable 5 millimeter perifissural n odule right middle lobe anteriorly. Pleura: No effusion. No pneumothorax. Heart: The heart is not dilated. Minimal coronary artery calcifications are seen. No pericardial effu tera. Aorta: Thoracic aorta non-dilated. Mild atherosclerotic changes. Upper abdomen: Unremarkable. Status post cholecystectomy. Bones: Unremarkable for age. Soft Tissues: Unremarkable. IMPRESSION: No suspicious pulmonary nodules. Lung RADS Cat 2 - Benign Appearance / Behavior: Nodules with a very low likelihood of becoming a clin ically active cancer due to size or lack of growth Lung-RADS 1.0 CATEGORIES: Category 0 - Prior chest CT exam(s) being located for comparison. Category 1 - Annual screening in 12 months. No nodules or definitely benign nodules. Category 2 - Annual screening in 12 months. Benign appearance. Nodules with low likelihood of becomin g active cancer. Category 3 - 6-month follow-up. Probably benign. Short-term follow-up suggested. Nodules with low lik elihood of becoming active cancer. Category 4A - 3-month follow-up and CT/PET if >8 mm in size. Suspicious finding. Findings which requi re additional testing. Category 4B - Findings which require additional testing and tissue sampling. Category 4X - Category 3 or 4 nodules with additional features or imaging findings that increases the suspicion of malignancy. Modifier S- Potentially clinically significant findings (non lung cancer) RADIATION DOSE DELIVERED: !Error Total DLP DATA REPOSITORY: All CT scans at this facility are submitted to the National Radiology Data Registry (NRDR) Dose Index Registry (DIR) with the [employer] (ACR). RADIATION OPTIMIZATION: All CT scans at this facility use at least one of these dose optimization te chniques: automated exposure control; mA and/or kV adjustment per patient size (includes targeted exa ms where dose is matched to clinical indication); or iterative reconstruction.
== END 2024-01-08 02:31 ==
LOC: DI 02:11
PROVIDERS: PCP Family Medicine; Visit Provider Family Medicine
DX: F17.210 Nicotine dependence, cigarettes, uncomplicated (principal); Z12.2 Encounter for screening for malignant neoplasm of respiratory organs
CPT/HCPCS: 71271

== ENCOUNTER 2024-12-16 15:30 | Outpatient (REF) | payer MEDICARE, SELFPAY ==
[2024-12-16 14:37] LABS: Abs Immature Grans 0.01 10^3/uL (0.0-0.06); HCT 44.0 % (36.0-46.0); HGB 14.7 g/dL (11.2-15.7); Immature Grans % 0.2 %; MCH 31.3 pg (27.0-33.0); MCHC 33.4 % (32.0-36.0); MCV 94 fL (80-95); MPV 10.0 fL (8.0-11.0); Platelet Count 298 10^3/uL (130-400); RBC 4.69 10^6/uL (3.93-5.22); RDW 11.8 % (11.7-14.6); RDW-SD 40.8 fL; WBC 6.31 10^3/uL (4.4-10.8)
[2024-12-16 15:24] LABS: ALT 21 U/L (14-59); AST 18 U/L (15-37); Albumin 4.2 g/dL (3.4-5.0); Alkaline Phosphatase 149 U/L (46-116); Anion Gap 9.1 mmol/L (3-11); BUN 14 mg/dL (7-18); Bilirubin, Total 1.0 mg/dL (0.2-1.0); CO2 27.9 mmol/L (21.0-32.0); Calcium 9.8 mg/dL (8.5-10.1); Calculated LDL 161 mg/dL (<100); Chloride 104 mmol/L (98-107); Cholesterol 231 mg/dL (<200); Estimated GFR 80.21 (mL/min/1.73m2); Glucose 96 mg/dL (74-106); HDL Cholesterol 55 mg/dL (>or=50); Potassium 4.4 mmol/L (3.5-5.1); Sodium 141 mmol/L (136-145); Total Protein 7.2 g/dL (6.4-8.2); Triglyceride 79 mg/dL (<150)
== END 2024-12-16 15:31 | disposition home or self-care (01) ==
LOC: NCHCN 15:30
PROVIDERS: PCP Family Medicine; Visit Provider Family Medicine
DX: E78.5 Hyperlipidemia, unspecified (principal); K21.00 Gastro-esophageal reflux disease with esophagitis, without bleeding
CPT/HCPCS: 80053; 80061; 85025

== ENCOUNTER 2024-12-30 02:11 | Outpatient (CLI) | payer MEDICARE, SELFPAY ==
--- NOTE | 2024-12-30 12:31 | DI.MAMMO_ITS ---
Exam(s) MAMMO SCREENING EXAM: MAMMO SCREENING CLINICAL HISTORY: SCREENING MAMMO Z12.31. TECHNIQUE: Bilateral full field digital CC and MLO mammographic images were obtained with 3D tomosynthesis and utilizing computer aided detection (CAD). COMPARISON: Prior mammograms were reviewed. FINDINGS: There are no new right breast findings. In the left breast there is a slight increased asymmetric density located approximately 3 cm in from the nipple both the CC and MLO views. Spot compression views recommended. There are no malignant-appearing microcalcification groups in this region or elsewhere in either breast. There is no significant architectural distortion nor skin thickening-retraction. IMPRESSION: 1. No radiographic evidence of malignancy in the right breast. 2. Asymmetric density-possible nodule 3 cm in from the nipple in the left breast. Spot compression CC and MLO views recommended as well as breast ultrasound. BI-RADS Category 0 - Incomplete: Need additional imaging evaluation Breast Density - Category B - There are scattered areas of fibroglandular density. Breast density Category C or D implies that the patient has dense breast tissue. Dense breast tissue can make it harder to find cancer on a mammogram. Dense breast tissue is also associated with an increased risk of breast cancer. This information about the result of the mammogram report was provided to the patient to raise their awareness. Use this report when you speak with the patient about their risks for breast cancer, which includes their family history. At that time, you may recommend additional screening tests (Ultrasound or MRI) as these tests may add significant information. A negative radiographic report should not delay biopsy if a dominant or clinically suspicious mass is present. Up to ten percent of cancers are not identified on mammography. A negative report may reinforce clinical impression. Adenosis and dense breasts may obscure an underlying neoplasm. False positive reports average 6 to 10%. Patient will receive a letter notifying them of these results.
== END 2024-12-30 02:31 ==
LOC: DI 02:11
PROVIDERS: PCP Family Medicine; Visit Provider Family Medicine
DX: Z12.31 Encounter for screening mammogram for malignant neoplasm of breast (principal); R92.323 Mammographic fibroglandular density, bilateral breasts
CPT/HCPCS: 77063; 77067

== ENCOUNTER 2025-01-06 01:16 | Outpatient (CLI) | payer MEDICARE, SELFPAY ==
--- NOTE | 2025-01-06 09:49 | DI.MAMMO_ITS ---
Exam(s) MAMMO SCREEN CALL BACK UNI EXAM: MAMMO SCREEN CALL BACK UNI CLINICAL HISTORY: ASYMMETRIC DENSITY -POSSIBLE NODULE 3CM FROM NIPPLE LEFT BREAST R92.8 ABNL. TECHNIQUE: Craniocaudal and mediolateral oblique Full Field Digital Mammography views of the left breast with Computer Aided Diagnosis. COMPARISON: Comparison is made with prior examinations. FINDINGS: Mammography/Tomosynthesis: Masses/Architectural Distortion: The area of concern is unchanged compared to multiple previous mammograms. There are no new areas of architectural distortion and no new masses are seen. Microcalcifictions: No suspicious pleomorphic-type are seen. Skin Thickening/Nipple Retraction: None. IMPRESSION: 1. No evidence of malignancy is noted. 2. Unless there is more urgent need, follow-up screening mammography is recommended, as per [employer] guidelines. 3. The findings were discussed with the patient on the date of the examination. BI-RADS Category 1 - Negative Breast Density - Category B - There are scattered areas of fibroglandular density. Breast density Category C or D implies that the patient has dense breast tissue. Dense breast tissue can make it harder to find cancer on a mammogram. Dense breast tissue is also associated with an increased risk of breast cancer. This information about the result of the mammogram report was provided to the patient to raise their awareness. Use this report when you speak with the patient about their risks for breast cancer, which includes their family history. At that time, you may recommend additional screening tests (Ultrasound or MRI) as these tests may add significant information. A negative radiographic report should not delay biopsy if a dominant or clinically suspicious mass is present. Up to ten percent of cancers are not identified on mammography. A negative report may reinforce clinical impression. Adenosis and dense breasts may obscure an underlying neoplasm. False positive reports average 6 to 10%. Patient will receive a letter notifying them of these results.
== END 2025-01-06 01:36 ==
PROVIDERS: PCP Family Medicine; Visit Provider Family Medicine
DX: Z12.31 Encounter for screening mammogram for malignant neoplasm of breast (principal); R92.8 Other abnormal and inconclusive findings on diagnostic imaging of breast
CPT/HCPCS: 77063; 77067

== ENCOUNTER 2025-01-27 00:54 | Outpatient (CLI) | payer MEDICARE, SELFPAY ==
--- NOTE | 2025-01-27 | DI.DEXA_ITS ---
Exam(s) XR DEXA BONE DENSITY W/WO EDDA EXAM: XR DEXA BONE DENSITY W/WO EDDA CLINICAL HISTORY: POSTMENOPAUSAL,Z78.0,ASYMPTOMATIC STATE TECHNIQUE: Routine DEXA evaluation of the lumbar spine, hip, or forearm. COMPARISON: No exams were available for comparison FINDINGS: Performed on a Hologic unit. Lateral image: No compression fracture evident. Lumbar Spine total T-score: -3.2 which is in the osteoporosis range. Hip total T-score:-1.7 which is osteopenia range. Independent reading at the level of the femoral neck yields T-score of -2.5 which is in the osteoporosis range. Forearm total T-score: -2.7 which is osteoporosis range IMPRESSION: Bone mineral density measures in the osteoporosis range. Fracture risk is high. Note: Any spine fracture indicates 5x risk for subsequent spine fracture and 2x risk for subsequent hip fracture. World Health Organization criteria for BMD interpretation classify patients: Normal...... T- Score at or above -1.0 Osteopenic... T- Score between -1.0 and -2.5 Osteoporosis... T-Score at or below -2.5
--- NOTE | 2025-01-27 | DI.CTLCSR_ITS ---
Exam(s) CT CHEST LUNG CANCER SCREEN EXAM: CT CHEST LUNG CANCER SCREEN CLINICAL HISTORY: NICOTINE DEPENDENCE,F17.210,CIGARETTES TECHNIQUE: Imaging Protocol: Axial computed tomography images with coronal and sagittal reformatted images were created and reviewed. Lung Computer Aided Detection (CAD) was utilized. COMPARISON: CT CT CHEST LUNG CANCER SCREEN from 09/22/[address] ABDOMEN PELVIS W from 08/18/[address] CHEST LUNG CANCER SCREEN from 11/14/[address] CHEST LUNG CANCER SCREEN from 01/08/2024 FINDINGS: Tracheobronchial tree: Patent where visualized. No bronchiectasis. Pulmonary parenchyma: No consolidation or dominant measurable mass. Mild emphysematous changes are present in the lungs. Lung Nodules: There is a stable 4 mm nodule in the right upper lobe medially (series 4, image 31). The nodule associated with the right minor fissure is also unchanged. It measures approximately 5 mm (series 4, image 77). There are no new pulmonary nodules. Mediastinum and Eliza: No dominant adenopathy or fluid collection. The esophagus is unremarkable. Thyroid gland: Unremarkable. Lymph nodes: Unremarkable. Pleura: No effusion or pneumothorax. Heart: The heart is not dilated. No coronary artery calcifications are seen. No pericardial effusion. Aorta: Thoracic aorta non-dilated.Atherosclerotic calcifications are present. Upper abdomen: Status post cholecystectomy. Soft Tissues: Unremarkable. Bones: Within normal limits. IMPRESSION: Stable pulmonary nodules. There are no new pulmonary nodules. Lung RADS Cat 2 - Benign Appearance / Behavior: Nodules with a very low likelihood of becoming a clinically active cancer due to size or lack of growth Lung-RADS 1.0 CATEGORIES: Category 0 - Prior chest CT exam(s) being located for comparison. Category 1 - Annual screening in 12 months. No nodules or definitely benign nodules. Category 2 - Annual screening in 12 months. Benign appearance. Nodules with low likelihood of becoming active cancer. Category 3 - 6-month follow-up. Probably benign. Short-term follow-up suggested. Nodules with low likelihood of becoming active cancer. Category 4A - 3-month follow-up and CT/PET if >8 mm in size. Suspicious finding. Findings which require additional testing. Category 4B - Findings which require additional testing and tissue sampling. Suspicious finding. Category 4X - Category 3 or 4 nodules with additional features or imaging findings that increases the suspicion of malignancy. Modifier S- Potentially clinically significant finding. (Non lung cancer) RADIATION DOSE DELIVERED: 20.98mGy.cm Total DLP 20.98mGy.cmTotal DLP DATA REPOSITORY: All CT scans at this facility are submitted to the National Radiology Data Registry (NRDR) Dose Index Registry (DIR) with the [employer] (ACR). RADIATION OPTIMIZATION: All CT scans at this facility use at least one of these dose optimization techniques: automated exposure control; mA and/or kV adjustment per patient size (includes targeted exams where dose is matched to clinical indication); or iterative reconstruction.
== END 2025-01-27 01:14 ==
LOC: DI 00:54
PROVIDERS: PCP Family Medicine; Visit Provider Family Medicine
DX: Z78.0 Asymptomatic menopausal state (principal); F17.210 Nicotine dependence, cigarettes, uncomplicated; Z12.31 Encounter for screening mammogram for malignant neoplasm of breast
CPT/HCPCS: 71271; 77080

== ENCOUNTER → 2025-02-06 03:19 | Outpatient (CLI) | payer MEDICARE, SELFPAY ==
--- NOTE | 2025-02-06 | DI.CT_ITS ---
Exam(s) CT HEAD WO EXAM: CT HEAD WO CLINICAL HISTORY: NEW ONSET HEADACHE,R51.9. TECHNIQUE: Imaging Protocol: Axial computed tomography images with coronal and sagittal reformatted images were created and reviewed FINDINGS: Ventricles and Extra axial spaces: Normal in size and morphology for the patient's age. Hemorrhage: None. 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 There is normal altamirano-white matter differentiation. There is no evidence of an acute territorial infarct. Midline shift: None. Brainstem/Cerebellum: Normal. Calvarium: Normal. Visualized Paranasal sinuses/Mastoids: Clear. Soft Tissues: Unremarkable. IMPRESSION: No acute intracranial process. RADIATION DOSE DELIVERED: 806.12mGy.cm Total DLP DATA REPOSITORY: All CT scans at this facility are submitted to the National Radiology Data Registry (NRDR) Dose Index Registry (DIR) with the [employer] (ACR). RADIATION OPTIMIZATION: All CT scans at this facility use at least one of these dose optimization techniques: automated exposure control; mA and/or kV adjustment per patient size (includes targeted exams where dose is matched to clinical indication); or iterative reconstruction.
== END ==
LOC: DI 03:19
PROVIDERS: PCP Family Medicine; Visit Provider Family Medicine
DX: R51.9 Headache, unspecified (principal)
CPT/HCPCS: 70450

== ENCOUNTER → 2025-03-03 10:47 | Outpatient (BNVA) | payer MEDICARE, SELFPAY | PROVIDERS: PCP Family Medicine; Referring Provider Family Medicine; Visit Provider Student in an Organized Health Care Education/Training Program | DX: M70.61 Trochanteric bursitis, right hip (principal) | CPT/HCPCS: 99213 ==

== ENCOUNTER 2025-03-04 12:27 | Outpatient (REF) | payer MEDICARE, SELFPAY ==
[2025-03-04 16:14] LABS: ALT 13 U/L (10-49); AST 19 U/L (<34)
== END 2025-03-04 12:28 | disposition home or self-care (01) ==
LOC: NCHCN 12:27
PROVIDERS: PCP Family Medicine; Visit Provider Family Medicine
DX: E78.5 Hyperlipidemia, unspecified (principal)
CPT/HCPCS: 84450; 84460

== ENCOUNTER → 2025-03-18 11:31 | Outpatient (BNVA) | payer MEDICARE, SELFPAY | PROVIDERS: PCP Family Medicine; Referring Provider Student in an Organized Health Care Education/Training Program; Visit Provider Podiatrist | DX: M25.571 Pain in right ankle and joints of right foot (principal); B07.0 Plantar wart | CPT/HCPCS: 99213; 17110 ==